=== PATIENT | female | born 1950 | race Caucasian/White ===

== ENCOUNTER → 2022-08-17 | Outpatient (OUT) | payer MEDICARE, SELFPAY ==
[2022-08-17 10:59] LABS: Basophils Absolute Auto 0.1 10^3/uL (0.0-0.1); Eosinophils Absolute Auto 0.2 10^3/uL (0.0-0.7); Eosinophils Percent Auto 2.3 % (0.9-7.0); Hematocrit 37.7 % (36.0-48.0); Hemoglobin 12.4 g/dL (12.0-16.0); Immature Granulocytes Abs Auto 0.02 10^3/uL (0.00-0.03); Immature Granulocytes Pct Auto 0.2 % (0.0-0.5); Lymphocytes Absolute Auto 2.2 10^3/uL (1.2-3.8); Lymphocytes Percent Auto 27.1 % (20.5-60.0); Mean Corpuscular HGB Conc 32.9 g/dL (29.9-35.2); Mean Corpuscular Hemoglobin 30.5 pg (26.7-34.0); Mean Corpuscular Volume 92.9 fL (81.0-99.0); Mean Platelet Volume 9.6 fL (9.5-13.5); Monocytes Absolute Auto 0.6 10^3/uL (0.3-0.8); Monocytes Percent Auto 6.8 % (1.7-12.0); Neutrophils Absolute Auto 5.1 10^3/uL (1.4-6.5); Neutrophils Percent Auto 62.6 % (43.0-75.0); Platelet Count 359 10^3/uL (150-450); Red Blood Count 4.06 10^6/uL (4.20-5.40); Red Cell Distribution Width 12.9 % (11.0-15.0); White Blood Count 8.1 10^3/uL (4.0-11.0)
== END ==
LOC: LAB 10:09
PROVIDERS: PCP Family Medicine
DX: Q10.5 Congenital stenosis and stricture of lacrimal duct (principal)
CPT/HCPCS: 36415; 85025

== ENCOUNTER 2023-02-28 12:59 | Outpatient (OUT) | payer MEDICARE, SELFPAY ==
--- NOTE | 2023-02-28 | MM_ITS ---
Patient Name: ANA MATT MR#: [id number] : 1950 Exam Date: 02/28/2023 Ordering Doctor: MRS. MARY BORDEN . RADIOLOGY REPORT PROCEDURE: MM TOMOSYNTHESIS DIAGNOSTIC BI, 02/28/2023, 13:05 US BREAST LT LIMITED, 02/28/2023, 14:58 COMPARISON: MG MAMM SCREEN 3D JACEK CAD, 02/09/2022. INDICATIONS: PAIN LEFT BREAST Calculator Name NCI Breast Cancer Risk Assessment Tool 5 Year Breast Cancer Risk 1.60% Lifetime Breast Cancer Risk 3.90% Personal Breast Cancer No Personal Ovarian Cancer No Treatments None Family Cancers None LOCATION: [facility] BREAST COMPOSITION: Scattered areas fibroglandular density. FINDINGS: DIAGNOSTIC CATEGORY 2--BENIGN FINDING. NO CHANGE FROM COMPARISON. Scattered benign-appearing nodules are present. Scattered benign-appearing calcifications are present. Scattered benign-appearing lymph nodes are present. RIGHT BREAST: No significant suspicious finding. LEFT BREAST: No mammographic abnormality in the 3 o'clock position to correspond to the patient's pain. A round partially circumscribed density is noted in the anterior left breast measuring 1.7 x 1.5 cm. This area is not seen on the spot compression views and likely represents overlap of fibroglandular tissue. ultrasound of this region demonstrates an area of anechoic echogenicity in the retroareolar location measuring 6.8 x 8.9 x 5.3 mm. RECOMMENDATIONS: ROUTINE MAMMOGRAM AND CLINICAL EVALUATION IN 12 MONTHS. PLEASE NOTE: A NORMAL MAMMOGRAM DOES NOT EXCLUDE THE POSSIBILITY OF BREAST CANCER. A CLINICALLY SUSPICIOUS PALPABLE LUMP SHOULD BE BIOPSIED. Dictated by: Clem Gamboa MD on 02/28/2023 at 15:27 Approved by: Clem Gamboa MD on 02/28/2023 at 15:30
== END 2023-02-28 13:00 | disposition home or self-care (01) ==
LOC: MAMMO 12:59
PROVIDERS: PCP Family Medicine; Visit Provider Nurse Practitioner
DX: N64.4 Mastodynia (principal)
CPT/HCPCS: 76642; 77066; G0279

== ENCOUNTER 2023-03-04 08:23 | Outpatient (OUT) | payer MEDICARE, SELFPAY ==
--- NOTE | 2023-03-04 08:27 | XR_ITS ---
[place] [id number] Patient Name: ANA MATT MRN: [id number] date: 1950 Sex: F Assigned Patient Location: RAD Current Patient Location: RAD Accession/Order Number: [id number] Exam Date: 03/04/2023 08:55 Report Date: 03/04/2023 09:50 At the request of: MARY BORDEN Procedure: XR DEXA axial skeleton EXAMINATION: XR DEXA axial skeleton HISTORY: osteoporosis COMPARISON: DEXA bone densitometry 05/29/2014 TECHNIQUE: Dual-energy X-ray absorptiometry (DXA) was performed. FINDINGS: FOREARM ANALYSIS: Average bone mineral density is 0.574 g/cm2. T-score (standard deviation relative to young adult mean): -2.0 . -12.0% change since prior study. HIP ANALYSIS: Lowest bone mineral density is within the right femoral trochanter, 0.504 g/cm2. T-score (standard deviation relative to young adult mean): -3.0 . -10.0% change since prior study. XR/XR DEXA axial skeleton IMPRESSION: [employer] Classification: Osteoporosis - High Fracture Risk Electronically authenticated by: DANIELLA PLEITEZ Date: 03/04/2023 09:50
--- OUTSIDE RECORDS SUMMARY | 2023-03-04 08:27 | XMS_ITS | CCD ---
Author Name Unknown Address [address] [place] [id number] Organization [facility] Care Team Providers Care Control Cabinet Assembler Name Role Phone Byron Meneses Unavailable Unavailable Vazquez, Daria Warren Unavailable Unavailable Gideon, Byron Miranda Unavailable Unavailable VAZQUEZ, DR DARIA Warren Consulting Unavailable VAZQUEZ, DR DARIA Warren Primary Care Unavailable VAZQUEZ, DR DARIA Warren Admitting Unavailable VAZQUEZ, DR DARIA Warren Attending Unavailable VAZQUEZ, DR DARIA Warren Attending Unavailable VAZQUEZ, DR DARIA Warren Consulting Unavailable VAZQUEZ, DR DARIA Warren Primary Care Unavailable VAZQUEZ, DR DARIA Warren Admitting Unavailable ZIEBER, DR REINIER Calderon Consulting Unavailable VAZQUEZ, DR DARIA Warren Attending Unavailable VAZQUEZ, DR DARIA Warren Consulting Unavailable VAZQUEZ, DR DARIA Warren Primary Care Unavailable VAZQUEZ, DR DARIA Warren Admitting Unavailable ZIEBER, DR REINIER Calderon Consulting Unavailable VAZQUEZ, DR DARIA Warren Attending Unavailable VAZQUEZ, DR DARIA Warren Consulting Unavailable VAZQUEZ, DR DARIA Warren Primary Care Unavailable VAZQUEZ, DR DARIA Warren Admitting Unavailable ZIEBER, DR REINIER Calderon Consulting Unavailable MILEY ANGEL Consulting Unavailable Mario Gene Suraj Attending Unavailable Mario Gene Suraj Admitting Unavailable NO FAMILY, PHYSICIAN Primary Care Unavailable Chiara Box Primary Care Physician Chiara Box Attending Unavailable VAZQUEZDARIA CAT Attending Unavailable CharuChiara bean Attending Unavailable CharuChiara bean Attending Unavailable CharuChiara bean Attending Unavailable Chiara Box Admitting Unavailable Chiara Box Attending Unavailable Allergies Allergy Classification Reported Allergen(s) Allergy Type Date of Onset Reaction(s) Facility (2 sources) Poison Kaycee; Translations: [Poison Kaycee] Propensity to adverse reactions to substance [facility] (1 source) No Known Medication Allergies; Translations: [No Known Medication Allergies] Propensity to adverse reactions (disorder) [facility] Repository NEGATED: Highlighted row has been ruled out! (1 source) Drug allergy [facility] Medications Current Medications Medication Drug Class(es) Dates Sig (Normalized) Sig (Original) ibuprofen 600 mg oral tablet (1 source) Nonsteroidal Anti-inflammatory Drug Start: 07-28-2022 take 1 tablet by mouth every six hours as needed ibuprofen 600 mg Tab 600 mg = 1 tab(s), Oral, q6hr, as needed, take with food, Refills(s) 0 Start Date: 07/28/22 Status: Ordered Omeprazole (1 source) Proton Pump Inhibitor Start: 01-27-2023 Prilosec OTC 20 mg, Refills(s) 0 Start Date: 01/27/23 Status: Ordered Problems Active Problems Problem Classification Problem Date Documented Date Episodic/Chronic Conditions associated with dizziness or vertigo (1 source) Labyrinthitis 07-28-2022 Episodic Conduction disorders (1 source) Left bundle branch block 07-28-2022 Chronic Disorders of lipid metabolism (3 sources) Pure hypercholesterolemia, unspecified; Translations: [Hypercholesterolemia] Onset: 03-03-2021 07-28-2022 Chronic Esophageal disorders (1 source) Gastroesophageal reflux disease 07-28-2022 Chronic Headache; including migraine (1 source) Migraine 07-28-2022 Chronic Malaise and fatigue (2 sources) Other fatigue; Translations: [Fatigue] Onset: 03-03-2021 01-27-2023 Episodic Mood disorders (2 sources) Depressive disorder; Translations: [Recurrent major depressive episodes, mild ] 01-26-2023 Chronic Comment on above: added per 01/25/2023 query response. Osteoarthritis (2 sources) Arthritis; Translations: [Osteoarthritis] 07-28-2022 Chronic Osteoporosis (1 source) Osteoporosis 07-28-2022 Chronic Other circulatory disease (1 source) Congestion of throat; Translations: [Phlegm in throat] Episodic Other circulatory disease (1 source) Elevated blood pressure 01-27-2023 Episodic Other connective tissue disease (1 source) Muscle pain 07-28-2022 Episodic Other ear and sense organ disorders (1 source) Sensorineural hearing loss, bilateral; Translations: [Bilateral sensorineural hearing loss] Chronic Other ear and sense organ disorders (1 source) Tinnitus; Translations: [Tinnitus] Episodic Other eye disorders (1 source) Unspecified disorder of eye and adnexa; Translations: [Unspecified disorder of eye and adnexa] Onset: 08-19-2022 Episodic Other nervous system disorders (1 source) 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 Comment on above: cervical bone spur Other non-traumatic joint disorders (1 source) Polyarthritis, unspecified; Translations: [POLYARTHRITIS UNSPECIFIED] Onset: 03-03-2021 Chronic Other non-traumatic joint disorders (1 source) Disorder of shoulder 07-28-2022 Episodic Other screening for suspected conditions (not mental disorders or infectious disease) (4 sources) Encounter for screening mammogram for malignant neoplasm of breast; Translations: [ENC SCR MAMMO MALIG NEOPLASM BREAST] Onset: 02-09-2022 Episodic Other upper respiratory disease (1 source) Dysphonia; Translations: [Dysphonia] Episodic Spondylosis; intervertebral disc disorders; other back problems (4 sources) Spondylosis without myelopathy or radiculopathy, lumbar region; Translations: [Intervertebral disc disorders with myelopathy, lumbar region] Onset: 11-05-2021 Chronic Spondylosis; intervertebral disc disorders; other back problems (5 sources) Intervertebral disc disorders with radiculopathy, lumbar region; Translations: [Dorsalgia, unspecified] Onset: 11-04-2021 Episodic Unclassified (3 sources) LOW BACK PAIN, UNSPECIFIED; Translations: [LOW BACK PAIN, UNSPECIFIED] Onset: 11-28-2021 Unclassified (1 source) PERSONAL HISTORY OF COVID-19; Translations: [PERSONAL HISTORY OF COVID-19] Onset: 03-03-2021 Viral infection (1 source) Disease caused by 2019-nCoV 07-28-2022 Comment on above: 10/2020 Past or Other Problems Problem Classification Problem Date Documented Da te Episodic/Chronic Other connective tissue disease (4 sources) Myalgia, unspecified site; Translations: [MYALGIA UNSPECIFIED SITE] Onset: 02-25-2021 Episodic Other non-traumatic joint disorders (1 source) Joint disorder, unspecified; Translations: [JOINT DISORDER UNSPECIFIED] Onset: 11-05-2021 Episodic Other non-traumatic joint disorders (1 source) Pain in right hip; Translations: [PAIN IN RIGHT HIP] Onset: 11-05-2021 Episodic Unclassified (1 source) LOW BACK PAIN, UNSPECIFIED; Translations: [LOW BACK PAIN, UNSPECIFIED] Onset: 11-23-2021 Results Test Name Value Interpretation Reference Range Facility RAD - Ultrasound Reporton RAD - Ultrasound Report [id number]#1.00T IFF Normal [facility] Physician Orderon 02-18-2023 Physician Order [id number]#1.00T IFF Normal [facility] .Interpretation:on HCV Ab IA Ql Comment Invalid Interpretation Code [facility] Comment on above: Result Comment: Not infected with HCV unless early or acute infection is suspected (which may be delayed in an immunocompromised individual), or other evidence exists to indicate HCV infection. Performed at: [facility] [id number] PhD No Ornelas Performed By: #### 2 405913, [id number], 7222144, 2313700, 3742654, 9800314, 21652545, [id number] ####[facility] [address] [place] [address] HCV Antibody RFX to Quant PC Rodolfo 02-02-2023 HCV IgG IA Ql Non-Reactive Invalid Interpretation Code Non Reactive [facility] Comment on above: Result Comment: Perf ormed at: [address] [id number] PhD No Ornelas Performed By: #### 2 950102, [id number], 1649989, 6996422, 2609558, 1050723, 42730002, [id number] ####[facility] [address] [place] [address] Patient Logson 02-01-2023 Patient Logs [id number]#1.00T IFF Normal [facility] Auto Diffon 01-31-2023 Basophils/100 WBC (Bld) 1.1 % Normal 0.0-2.0 [facility] Comment on above: Order Comment: Order Added by Discern Expert. Performed By: #### 2 595292, [id number], 8408521, 0147790, 5479502, 1358887, 38943612, [id number] ####[facility] [address] [place] [address] Basophils/Leukocytes Auto (Bld) [Pure # fraction] 0.1 E9/L Normal 0.0-0.2 [facility] Comment on above: Order Comment: Order Added by Discern Expert. Performed By: #### 2 736840, [id number], 8766837, 4694775, 3487507, 5452066, 89087355, [id number] ####[address] [address] Eosinophils/100 WBC (Bld) 3.3 % Normal 0.0-8.0 [facility] Comment on above: Order Comment: Order Added by Helen Expert. Performed By: #### 2 512236, 4302267211, 2362944, 7745536, 9411911, 4395108, 76277555, [id number] ####[address] [address] Eosinophils/Leukocyt es Auto (Bld) [Pure # fraction] 0.2 E9/L Normal 0.0-0.5 [facility] Comment on above: Order Comment: Order Added by Helen Expert. Performed By: #### 2 913773, [id number], 4301087, 6709690, 1178346, 9803105, 52089872, 5060676674 ####[address] [place] [address] Lymphocytes/100 WBC (Bld) 33.7 % Normal 14.0-50.0 [facility] Comment on above: Order Comment: Order Added by Helen Expert. Performed By: #### 2 847038, 1004090760, 7731183, 8873003, 4992680, 8429064, 56724919, 3902369175 ####[address] [place] [address] Lymphocytes/Leukocyt es Auto (Bld) [Pure # fraction] 2.2 E9/L Normal 1.0-4.0 [facility] Comment on above: Order Comment: Order Added by Discern Expert. Performed By: #### 2 748892, 9045854732, 0687200, 2623409, 9305546, 5705671, 93723616, 7319788581 ####[address] [address] Monocytes/100 WBC (Bld) 6.5 % Normal 4.0-14.0 [facility] Comment on above: Order Comment: Order Added by Discern Expert. Performed By: #### 2 020637, 1002996329, 1989909, 8911089, 7448367, 9458361, 01398635, 1257161939 ####[address] [address] Monocytes/Leukocytes Auto (Bld) [Pure # fraction] 0.4 E9/L Normal 0.2-1.0 [facility] Comment on above: Order Comment: Order Added by Discern Expert. Performed By: #### 2 667665, 7251163955, 6075276, 7610152, 1782027, 1848558, 03998619, [id number] ####[address] [address] Neutrophils/100 WBC (Bld) 55.4 % Normal 36.0-75.0 [facility] Comment on above: Order Comment: Order Added by Discern Expert. Performed By: #### 2 911390, 5003536950, 9901347, 2047811, 1380880, 3988090, 77778938, 1728928994 ####[address] [address] Neutrophils/Leukocyt es Auto (Bld) [Pure # fraction] 3.7 E9/L Normal 2.0-7.5 [facility] Comment on above: Order Comment: Order Added by Discern Expert. Performed By: #### 2 761273, 6502342396, 8935256, 4097715, 3736846, 9117618, 63078592, 8616696303 ####[facility] [address] [place] [address] CBC w/ Auto Diffon 3 Erythrocyte distribution width (RBC) [Ratio] 13.1 % Normal 10.9-14.2 [facility] Comment on above: Performed By: #### 2 723931, 3002373477, 0319025, 4157811, 4866568, 1256887, 39271934, 8452223945 ####[address] [place] [address] Hematocrit (Bld) [Volume fraction] 37.5 % Normal 34.0-46.0 [facility] Comment on above: Performed By: #### 2 031961, 2805374102, 0857771, 7388103, 4108335, 3331509, 14816631, 1485644268 ####[address] [address] Hemoglobin (Bld) [Mass/Vol] 12.3 g/dL Normal 12.0-16.0 [facility] Comment on above: Performed By: #### 2 270539, 1284540314, 5899433, 2748433, 7422875, 9907508, 39020899, 1925125781 ####[address] [place] [address] MCH (RBC) [Entitic mass] 29.4 pg Normal 27.0-34.0 [facility] Comment on above: Performed By: #### 2 560618, 3933669316, 1587996, 6318032, 6799294, 2172495, 90280337, 5476366286 ####[address] [place] [address] MCHC (RBC) [Mass/Vol] 32.9 g/dL Normal 31.4-36.0 [facility] Comment on above: Performed By: #### 2 162008, 5031626577, 0064774, 6572500, 5316435, 6703781, 72942861, 9904387297 ####[address] [address] MCV (RBC) [Entitic vol] 89.5 fL Normal 80.0-100.0 [facility] Comment on above: Performed By: #### 2 826973, 9921877241, 8895458, 6932670, 3440271, 7050023, 46982570, 6258279419 ####[address] [address] Platelet mean volume (Bld) [Entitic vol] 8.6 fL Normal 6.4-10.8 [facility] Comment on above: Performed By: #### 2 791268, 0116851426, 7932136, 1964745, 8498545, 7745903, 46263596, 1885918635 ####[address] [address] Platelets (Bld) [#/Vol] 333.0 E9/L Normal 150.0-500.0 [facility] Comment on above: Performed By: #### 2 785305, 8706239888, 5259165, 9228006, 6288118, 7398759, 48064595, 4216419183 ####[address] [address] RBC (Bld) [#/Vol] 4.2 E12/L Low 4.3-5.9 [facility] Comment on above: Performed By: #### 2 710039, 5168594441, 2512822, 2525746, 3025374, 8472266, 64162952, 0779384945 ####[address] [address] WBC corrected for nucl RBC Auto (Bld) [#/Vol] 6.6 E9/L Normal 4.0-11.0 [facility] Comment on above: Performed By: #### 2 207885, 2936887383, 5162828, 3191379, 6187459, 6567321, 14084034, 7980105765 ####[facility] [address] [place] [id number] CHEMISTRYOrdered By: SYSTEM SYSTEM on 01-31-2023 Albumin [Mass/Vol] 4.0 g/dL Normal 3.3 - 5.0 gm/dL [facility] Albumin/Globulin [Mass ratio] 1.0 {ratio} Low 1.1 - 2.2 [facility] ALP [Catalytic activity/Vol] 78 [iU]/d Normal 21 - 98 Int._Unit/L [facility] ALT No additional P-5'-P [Catalytic activity/Vol] 14 [iU]/d Normal 6 - 46 Int._Unit/L [facility] Anion gap [Moles/Vol] 11 mmol/L Normal 6 - 16 mEq/L [facility] AST [Catalytic activity/Vol] 21 [iU]/d Normal 5 - 43 Int._Unit/L [facility] Bilirubin [Mass/Vol] 0.8 mg/dL Normal 0.0 - 1 .1 mg/dL [facility] Calcium [Mass/Vol] 9.6 mg/dL Normal 8.9 - 11. 1 mg/dL [facility] Chloride [Moles/Vol] 107 mmol/L Normal 101 - 1 11 mmol/L [facility] Cholesterol [Mass/Vol] 268 mg/dL High 120 - 200 mg/dL [facility] Cholesterol in HDL [Mass/Vol] 69 mg/dL Invalid Interpretation Code [facility] Comment on above: Interpretive Data: H DL > or equal to 60 mg/dL: Low cardiovascular risk HDL < 40 mg/dL : High cardiovascular risk Cholesterol in LDL [Mass/Vol] 162 mg/dL High <=129mg/dL [facility] Cholesterol in VLDL [Mass/Vol] 26 mg/dL Normal 7 - 40 mg/dL [facility] CO2 [Moles/Vol] 26 mmol/L Normal 21 - 31 mmol/L [facility] Creatinine [Mass/Vol] 0.8 mg/dL Normal 0.5 - 1.3 mg/dL [facility] GFR/1.73 sq M.predicted among non-blacks MDRD (S/P/Bld) [Vol rate/Area] 78 mL/min/1.73 m2 Normal >=59mL/min/1 .73 m2 [facility] Comment on above: Interpretive Data: C hronic kidney disease could be indicated at eGFR's of less than 60 mL/min/1.73m2. Kidney failure is indicated at less than 15 mL/min/1.73m2. Globulin (S) [Mass/Vol] 3.8 g/dL Normal 1.4 - 4.0 gm/dL [facility] Glucose [Mass/Vol] 88 mg/dL Normal 55 - 199 mg/dL [facility] Comment on above: Interpretive Data: I f this glucose result represents a fasting glucose, interpretation should refer to the following reference range: 55-99 mg/dL Potassium [Moles/Vol] 4.2 mmol/L Normal 3.5 - 5.3 mmol/L [facility] Protein [Mass/Vol] 7.8 g/dL Normal 6.0 - 7.8 gm/dL [facility] Sodium [Moles/Vol] 140 mmol/L Normal 135 - 145 mmol/L [facility] Triglyceride [Mass/Vol] 132 mg/dL Normal <=149mg/dL [facility] TSH Qn 2.33 m[IU]/L Normal 0.34 - 5.60 mcIU/mL [facility] Urea nitrogen [Mass/Vol] 15 mg/dL Normal 5 - 21 mg/dL [facility] Urea nitrogen/Creatinine [Mass ratio] 19 mg/mg Normal 10 - 20 [facility] CMPon 01-31-2023 Albumin [Mass/Vol] 4.0 g/dL Normal 3.3-5.0 [facility] Comment on above: Performed By: #### 2 477660, 5131651164, 6551690, 7853017, 1591590, 3154224, 71627146, 4344317617 ####[facility] [address] [place] [address] Albumin/Globulin (S) [Mass conc ratio] 1.0 Low 1.1-2.2 [facility] Comment on above: Performed By: #### 2 375940, 9382440619, 5572993, 3870907, 3625542, 3395124, 76861100, 1128638656 ####[address] [place] [address] ALP [Catalytic activity/Vol] 78 Int._Unit/L Normal 21-98 [facility] Comment on above: Performed By: #### 2 918980, 3795310389, 3116289, 8786298, 3117709, 2405695, 80830765, 0399260097 ####[address] [address] ALT No additional P-5'-P [Catalytic activity/Vol] 14 Int._Unit/L Normal 6-46 [facility] Comment on above: Performed By: #### 2 597809, 7261860372, 0490987, 8398025, 5263477, 6374140, 29669871, 9021002312 ####[address] [address] Anion gap [Moles/Vol] 11 mmol/L Normal 6-16 [facility] Comment on above: Performed By: #### 2 835227, 5358914534, 0794922, 7356739, 4527338, 0045090, 57159335, 9448378864 ####[address] [address] AST [Catalytic activity/Vol] 21 Int._Unit/L Normal 5-43 [facility] Comment on above: Performed By: #### 2 765868, 1360524027, 2522987, 5144520, 2605883, 4124355, 30281135, 3961950128 ####[address] [place] [address] Bilirubin [Mass/Vol] 0.8 mg/dL Normal 0.0-1.1 [facility] Comment on above: Performed By: #### 2 771699, 6351772058, 1068723, 1860508, 6596080, 7876600, 24704604, 6896970416 ####[facility] [address] [place] [address] Calcium [Mass/Vol] 9.6 mg/dL Normal 8.9-11.1 [facility] Comment on above: Performed By: #### 2 454158, 4507098120, 6190378, 0066539, 6976815, 2397722, 97335658, 6649596974 ####[facility] [address] [place] [address] Chloride [Moles/Vol] 107 mmol/L Normal 101-111 [facility] Comment on above: Performed By: #### 2 658837, 1081362288, 5852702, 4969640, 7498244, 3529729, 59439083, 5084832465 ####[facility] [address] [place] [address] CO2 [Moles/Vol] 26 mmol/L Normal 21-31 [facility] Comment on above: Performed By: #### 2 399129, 5945070473, 0507022, 8820995, 1098659, 2906988, 55369805, 8800071768 ####[facility] [address] [place] [address] Creatinine [Mass/Vol] 0.8 mg/dL Normal 0.5-1.3 [facility] Comment on above: Performed By: #### 2 392066, 3440741559, 7569994, 0391200, 3828338, 4262228, 93786170, 5262834861 ####[facility] [address] [place] [address] Globulin (S) [Mass/Vol] 3.8 g/dL Normal 1.4-4.0 [facility] Comment on above: Performed By: #### 2 592578, 3862618983, 5562672, 8890416, 3944692, 7136466, 78969348, 5708253542 ####[facility] [address] [place] [address] Glucose [Mass/Vol] 88 mg/dL Normal 55-199 [facility] Comment on above: Result Comment: If t his glucose result represents a fasting glucose, interpretation should refer to the following reference range: 55-99 mg/dL Performed By: #### 2 639909, 1815655358, 4482922, 9695925, 5662535, 5688783, 88923760, 4566342052 ####[facility] [address] [place] [address] Potassium [Moles/Vol] 4.2 mmol/L Normal 3.5-5.3 [facility] Comment on above: Performed By: #### 2 496151, 8520315066, 8291603, 6307018, 1703231, 3521149, 78702546, 0198224154 ####[facility] [address] [place] [address] Protein [Mass/Vol] 7.8 g/dL Normal 6.0-7.8 [facility] Comment on above: Performed By: #### 2 683358, 3157735330, 7021395, 5400828, 3258178, 4938875, 93208448, 8759409447 ####[facility] [address] [place] [address] Sodium [Moles/Vol] 140 mmol/L Normal 135-145 [facility] Comment on above: Performed By: #### 2 707876, 3987642598, 3649360, 3344669, 6221519, 8994484, 14456353, 4778362703 ####[facility] [address] [place] [address] Urea nitrogen [Mass/Vol] 15 mg/dL Normal 5-21 [facility] Comment on above: Performed By: #### 2 145902, 2812207244, 9789023, 8041244, 7093370, 0440338, 28853356, 4662936550 ####[facility] [address] [place] [address] Urea nitrogen/Creatinine [Mass ratio] 19 No Units Normal 10-20 [facility] Comment on above: Performed By: #### 2 852522, 2651380285, 7903738, 7223837, 1556638, 9602612, 23424824, 3246034629 ####[facility] [address] [place] [address] HEMATOLOGYOrdered By: SYSTEM SYSTEM on 01-31-2023 Basophils/100 WBC (Bld) 1.1 % Normal 0.0 - 2.0 % [facility] Basophils/Leukocytes Auto (Bld) [Pure # fraction] 0.1 E9/L Normal 0.0 - 0.2 E9/L [facility] Eosinophils/100 WBC (Bld) 3.3 % Normal 0.0 - 8.0 % [facility] Eosinophils/Leukocyt es Auto (Bld) [Pure # fraction] 0.2 E9/L Normal 0.0 - 0.5 E9/L [facility] Lymphocytes/100 WBC (Bld) 33.7 % Normal 14.0 - 50.0 % [facility] Lymphocytes/Leukocyt es Auto (Bld) [Pure # fraction] 2.2 E9/L Normal 1.0 - 4.0 E9/L [facility]eAuto[facility] Monocytes/100 WBC (Bld) 6.5 % Normal 4.0 - 14.0 % [facility] Monocytes/Leukocytes Auto (Bld) [Pure # fraction] 0.4 E9/L Normal 0.2 - 1.0 E9/L [facility] Neutrophils/100 WBC (Bld) 55.4 % Normal 36.0 - 75.0 % [facility] Neutrophils/Leukocyt es Auto (Bld) [Pure # fraction] 3.7 E9/L Normal 2.0 - 7.5 E9/L [facility] HEMATOLOGYOrdered By: Edie Holder on 01-31-2023 Erythrocyte distribution width (RBC) [Ratio] 13.1 % Normal 10.9 - 14.2 % [facility] Hematocrit (Bld) [Volume fraction] 37.5 % Normal 34.0 - 46.0 % [facility] Hemoglobin (Bld) [Mass/Vol] 12.3 g/dL Normal 12.0 - 16.0 gm/dL [facility] MCH (RBC) [Entitic mass] 29.4 pg Normal 27.0 - 34.0 pg [facility] MCHC (RBC) [Mass/Vol] 32.9 g/dL Normal 31.4 - 36.0 gm/dL [facility] MCV (RBC) [Entitic vol] 89.5 fL Normal 80.0 - 100.0 fL [facility] Platelet mean volume (Bld) [Entitic vol] 8.6 fL Normal 6.4 - 10.8 fL [facility] Platelets (Bld) [#/Vol] 333.0 E9/L Normal 150.0 - 500.0 E9/L [facility] RBC (Bld) [#/Vol] 4.2 E12/L Low 4.3 - 5.9 E12/L [facility] WBC corrected for nucl RBC Auto (Bld) [#/Vol] 6.6 E9/L Normal 4.0 - 11.0 E9/L [facility] Lipid Panelon 01-31-2023 Cholesterol [Mass/Vol] 268 mg/dL High 120-200 [facility] Comment on above: Performed By: #### 2 889320, 9430404188, 8273832, 0173080, 0693916, 2971639, 02210161, 0132019692 ####[facility] [address] [place] [address] Cholesterol in HDL [Mass/Vol] 69 mg/dL Invalid Interpretation Code [facility] Comment on above: Result Comment: HDL > or equal to 60 mg/dL: Low cardiovascular risk HDL < 40 mg/dL : High cardiovascular risk Performed By: #### 2 917382, 9802909163, 8524423, 0913351, 8163093, 3025357, 80813292, 0408837144 ####[facility] [address] [place] [address] Cholesterol in LDL [Mass/Vol] 162 mg/dL High <=129 [facility] Comment on above: Performed By: #### 2 035897, 6693756096, 8252701, 1000678, 4808780, 9759120, 71819367, 1133438507 ####[facility] [address] [place] [address] Cholesterol in VLDL [Mass/Vol] 26 mg/dL Normal 7-40 [facility] Comment on above: Performed By: #### 2 737509, 4801170524, 5846306, 9726140, 7283835, 9311797, 06491070, 7419686130 ####[facility] [address] [place] [address] Triglyceride [Mass/Vol] 132 mg/dL Normal <=149 [facility] Comment on above: Performed By: #### 2 472178, 7008195269, 8280610, 8800086, 7071809, 5374490, 56471981, 7573622286 ####[facility] [address] [place] [address] Nurse Consultation Noteon Nurse Consultation Note Reason for Visit Pt presented for a BP check and a blood draw today. Pt advised - when checking BP at home, to sit and rest in a chair for 5 minutes, ensure her arm is lifted to heart level, feet flat on the floor. Pt brought home list of BPs for Chiara's review. Physical Exam Vitals & Measurements BP - 146/90 upon 1st check. Allowed additional 5 minutes - 2nd check was 138/88 Medications ibuprofen 600 mg Tab, 600 mg= 1 tab(s), Oral, q6hr, Self Directed Prilosec OTC, 20 mg, Self Directed Allergies Poison Kaycee No Known Medication Allergies Normal [facility] TSHon 01-31-2023 TSH Qn 2.33 m[IU]/L Normal 0.34-5.60 [facility] Comment on above: Performed By: #### 2 521566, 0130073837, 4261241, 0515434, 1231406, 6747605, 26927731, 1755411208 ####[facility] [address] [place] [address] eGFRon 01-31-2023 GFR/1.73 sq M.predicted among non-blacks MDRD (S/P/Bld) [Vol rate/Area] 78 mL/min/1.73 m2 Normal >=59 [facility] Comment on above: Order Comment: Order added by Discern Expert. Result Comment: Brands Editor giselle kidney disease could be indicated at eGFR's of less than 60 mL/min/1.73m2. Kidney failure is indicated at less than 15 mL/min/1.73m2. Performed By: #### 2 [id number], [id number], [id number] ####[facility] [address] [place] [address] Formson 01-28-2023 Forms [id number] IFF Normal [facility] Ambulatory Visit Summaryon 1 03-29-2022 Ambulatory Visit Summary HALIE MARTIN :1950 Visit Date:01/27/2023 Ambulatory Visit Instructions Your Diagnosis Annual visit for general adult medical examination with abnormal findings Major depressive disorder, recurrent episode, mild Screening for colon cancer Screening mammogram for breast cancer Other problems related to lifestyle Osteoporosis Arthritis Hyperlipidemia Tests Performed BD Bone Density DEXA -- Results Pending -- MA Mamm Screen w/CAD if perf and 3D Pedro -- Results Pending -- Please visit your patient portal for your results or contact your primary care physician. Your Care Team Attending Physician - Chiara Rainey Primary Care Physician - Chiara Rainey This Is Your Medications List ibuprofen (ibuprofen 600 mg Tab) omeprazole (Prilosec OTC) Procedures Performed Arthroscopy of knee, Cataract, Shoulder repair, Surgery. Discharge Vitals Heart Rate (Peripheral) 62 Blood Pressure 144/78 Height 63 in Height 160 cm Weight 152.02 lb Weight 69.1 kg BMI 26.99 What to do next Scheduled Follow-Up Appointments Tuesday 9:40 AM EST Where: [facility] Invalid Interpretation Code [address] [place] [address]- \.br \ You Need to Complete the Following\.b r\ CBC w/ Auto Diff, Blood, Routine collect, 01/27/23, Order for future visit, Lab Collect, Elevated blood pressure reading [facility] Ambulatory Visit Summary HALIE MARTIN :1950 Visit Date:01/27/2023 Ambulatory Visit Instructions Your Diagnosis Major depressive disorder, recurrent episode, mild Your Care Team Attending Physician - Chiara Rainey Primary Care Physician - Chiara Rainey This Is Your Medications List Contact prescribing physician if questions or concerns ibuprofen (ibuprofen 600 mg Tab) omeprazole (Prilosec OTC) Procedures Performed Arthroscopy of knee, Cataract, Shoulder repair, Surgery. Discharge Vitals Heart Rate (Peripheral) 62 Respiratory Rate 16 Blood Pressure 158/78 Height 160 cm Height 63 in Weight 69.1 kg Weight 152.02 lb BMI 26.99 Medications What How Much When Instructions Unchanged ibuprofen (ibuprofen 600 mg Tab) 1 Tablets By Mouth Every 6 hours as needed, take with food Contact prescribing physician if questions or concerns Unchanged omeprazole (Prilosec OTC) 20 Milligram Contact prescribing physician if questions or concerns Allergies Poison Kaycee No Known Medication Allergies Problems Ongoing - Any problem that you are currently receiving treatment for. Arthritis COVID-19 GERD (gastroesophageal reflux disease) Hypercholesterolemia Hyperlipidemia Impingement of shoulder Labyrinthitis Left bundle branch block (LBBB) Low back pain Major depressive disorder, recurrent episode, mild Migraines Muscle pain Osteoarthritis Osteoporosis Radiculopathy Historical - Any problem that you are no longer receiving treatment for. Depression Patient Survey You may receive a survey via text or e-mail asking about your office visit. Please share your experience with us by completing your survey. We appreciate your feedback and thank you for choosing us for your care. [facility] Family Medicine Office/Clini c Noteon 01-27-2023 Family Medicine Office/Clinic Note Chief Complaint Subsequent Medicare Visit Review of Systems PHQ Score Initial Depression Screen Score: 0 SCORE Physical Exam Vitals & Measurements HR: 62(Peripheral) BP: 144/78 SpO2: 96% HT: 160 cm HT: 63 in WT: 69.1 kg WT: 152.02 lb BMI: 26.99 Assessment/Plan 1. Annual visit for general adult medical examination with abnormal findings (Z00.01: Encounter for general adult medical examination with abnormal findings) The patient was given a customized and personalized print out of all the current AHRQ USPSTF?s recommendations for preventative services and all current CDC recommended immunizations, relevant risk recommendations and the following patient brochures were given. Reviewed Medicare preventative services checklist. CDC-Falls Prevention and home safety screening reviewed. Patient denies any falls in last 12 months, voices no worry about falling, exhibits no problems with sitting, standing, or ambulation. Pt voices understanding with keeping walk way area free of clutter to prevent tripping and/or falling. [place] Advance Directives reviewed, patient has copy at home, encouraged to bring to office for scanning to chart. Patient denies any problems with ADL?s and Instrumental ADL?s. Cognitive screening completed with memory and clock face drawing, no deficits noted. Immunization Record reviewed with the patient. Discussed Shingrix vaccine with educational handout and availability. Allergies and medications reviewed and up to date. Patient denies concerns with taking medication as prescribed, reviewed OTC medications with patient, medication list up to date. Blood tests were reviewed: Discussed what tests need to be updated. Labs were ordered, will have completed prior to next PCP visit. Nurse visit scheduled: 01/31/23 Will have labs completed with [facility]. Reviewed pain symptoms with patient: denies pain symptoms Reviewed all outside providers that patient follows. Last visit summary notes available in chart and/or have been requested. Follow up scheduled, seen provider same day 01/27/23, nurse f/u 01/31/23 AWV has been scheduled, 01/30/2024 Abnormal findings with elevated BP, serial assessment completed and documented. 15 minutes for completion of Alcohol screening questionnaire, documentation, discussion with patient, provider review. AUDIT score 2. Patient denies alcohol use. No concerns at this time. 2. Major depressive disorder, recurrent episode, mild (F33.0: Major depressive disorder, recurrent, mild) Patient does not have prescribed medication, notes symptoms controlled. Follows up with PCP as needed. PHQ-9 risk assessment completed with negative findings. Total risk score 2. Patient denies any suicidal ideations at this time. Reviewed additional signs/symptoms to monitor for and report to provider. 3. Screening for colon cancer (Z12.11: Encounter for screening for malignant neoplasm of colon) Patient is due for their colonoscopy: Denies concerns with constipation and/or rectal bleeding. No family history concerns voiced. Patient declines interest in scheduling a colonoscopy screening. Reviewed available options with Cologuard Kit, patient voices interest and would like to have this ordered. Reviewed sample box with how to collect the needed sample step by step. Patient voices understanding with process and is aware the kit also includes step by step pictorial booklet. Provided a schedule with the days of the week that the sample was completed and when it needs to be returned back via UPS for testing. Reminded patient this kit will not be mailed out to them until they verify this order and mailing address by a construction sales representative from [employer]. Encouraged patient it would be OK for them to call [employer] if they have not received a call after 1 week of ordering to ensure shipping. Discussed available repeating of the Cologuard test: if results are NORMAL they can repeat every 3 years unless otherwise indicated. If the result is ABNORMAL they would be referred to Gastroenterology for further evaluation and will not be able to have offered again. Form was completed and faxed to [employer] with patient's demographics and insurance information. Patient will be notified by PCP with the results, this can take up to 7-10 days. Cologuard ordered and forms completed and faxed to [employer]. 4. Screening mammogram for breast cancer (Z12.31: Encounter for screening mammogram for malignant neoplasm of breast) Recommended mammogram screening discussed with patient during today's Medicare Wellness visit. Patient reminded with the importance of continued Breast Self-Awareness at home. Easy to read demonstration on how to perform a self breast exam: What to look for and feel for was reviewed and provided to patient. Mammogram ordered and faxed to [facility]. Pt has been advised no deodorant, sprays or lotions. Last completed 02/09/22. 5. Other problems related to lifestyle (Z72.89: Other problems related to lifestyle) Information provided and d (more content not included)... Normal [facility] Comment on above: Result Comment: Elec tronically Signed By: Chiara Rainey\.br\Date and Time Signed: 01/27/23 15:28 EST\.br\Electronically Co-Signed By: Stone Petty\.br\Date and Time Co-Signed: 01/27/23 14:53 EST Family Medicine Office/Clinic Note HPI Staff Halie is a 72 year old female presenting for [facility] care Establish Care: History: Any previous diagnosis: Gerd, Depression, Osteoarthritis, hypercholesterolemia, HLD, Migraines History of seeing any specialist: Podiatry, Dr Hill. Dannie, Opthalm. ENT Dr Meneses. Dr Guerrero, Dermatology When was your last doctors visit: Last provider: avila - 20 years. Any recent labs: last year [facility] Health Maintenance UTD: Colonoscopy: no, refused Mammogram: due Pelvic/Pap: Acute: Current issues/complaints: high htn on home bp monitor. History of Present Illness pt presents today c/o elevated BP at home Review of Systems PHQ Score Initial Depression Screen Score: 0 SCORE ROS - Provider Constitutional: no fever, no chills, no sweats, no fatigue Respiratory: no shortness of breath, no cough, no orthopnea, no wheezing. Cardiovascular: no chest pain, no palpitations, no edema. Neurologic: no headache, no dizziness, no numbness, no weakness. Physical Exam Vitals & Measurements HR: 62(Peripheral) RR: 16 BP: 158/78 SpO2: 98% HT: 63 in HT: 160 cm WT: 69.1 kg WT: 152.02 lb BMI: 26.99 General: alert, no acute distress ENMT: oral mucosa moist, no pharyngeal erythema or exudate Cardiovascular: regular rate and rhythm, normal peripheral perfusion Respiratory: Lungs CTA, respirations non labored Extremities: no deformity, no trauma Neurological: oriented x 4, LOC appropriate for age, CN II-XII intact, motor strength equal & normal bilaterally, speech normal Assessment/Plan 1. Elevated blood pressure reading (R03.0: Elevated blood-pressure reading, without diagnosis of hypertension) pt presents today c/o elevated BP at home 150's/90's. It is 150/78 in office today. pt to keep BP log and bring it in for nurse visit next week. pt will also be fasting when she comes back and will also have lab work. discussed starting norvasc if BP is elevated at nurse visit. all questions answered. Ordered: CBC w/ Auto Diff Comprehensive Metabolic Panel Lipid Panel Thyroid Stimulating Hormone 2. Fatigue (R53.83: Other fatigue) pt c/o fatigue and some chest tightness when she exerts herself doing yard work. will check some labs next week. pt will be having medicare wellness visit today as well. pt is concerned she may be diabetic because she is having some tingling in her feet. will check labs Ordered: CBC w/ Auto Diff Comprehensive Metabolic Panel Lipid Panel Thyroid Stimulating Hormone Follow-up No qualifying data available Problem List/Past Medical History Ongoing Arthritis COVID-19 Elevated blood pressure reading Fatigue GERD (gastroesophageal reflux disease) Hypercholesterolemia Hyperlipidemia Impingement of shoulder Labyrinthitis Left bundle branch block (LBBB) Low back pain Major depressive disorder, recurrent episode, mild Migraines Muscle pain Osteoarthritis Osteoporosis Radiculopathy Historical Depression Procedure/Surgical History Arthroscopy of knee, Cataract, Shoulder repair, Surgery. Medications ibuprofen 600 mg Tab, 600 mg= 1 tab(s), Oral, q6hr, Self Directed Prilosec OTC, 20 mg, Self Directed Allergies Poison Kaycee No Known Medication Allergies Social History Alcohol Wine, Liquor, 1-2 times per week, Household alcohol concerns: No., 01/27/2023 Tobacco Never (less than 100 in lifetime) Tobacco Use:. Never Smokeless Tobacco Use:. Household tobacco concerns: No., 01/27/2023 Never (less than 100 in lifetime) Tobacco Use:. Never Smokeless Tobacco Use:., 01/27/2023 Family History Acute myocardial infarction: Father and Sibling.Negative: Brother. Diabetes mellitus type 2: Sibling.Negative: Brother. Heart murmur: Sibling.Negative: Brother. Hyperlipidemia: Sibling.Negative: Brother. Hypertension: Sibling.Negative: Brother. Renal failure syndrome: Sibling. [facility] Comment on above: Result Comment: Elec tronically Signed By: Chiara Rainey\.rodney\Date and Time Signed: 01/27/23 14:26 EST Formson 01-27-2023 Forms [id number] FF [facility] Patient Educationon 01-28-20 23 Patient Education Caregiving Fall Prevention in the Home, Adult Falls can cause injuries and affect people of all ages. There are many simple things that you can do to make your home safe and to help prevent falls. Ask for help when making these changes, if needed. What actions can I take to prevent falls? General instructions ? Use good lighting in all rooms. Replace any light bulbs that burn out, turn on lights if it is dark, and use night-lights. ? Place frequently used items in [id number]-dv-xqjju places. Lower the shelves around your home if necessary. ? Set up furniture so that there are clear paths around it. Avoid moving your furniture around. ? Remove throw rugs and other tripping hazards from the floor. ? Avoid walking on wet floors. ? Fix any uneven floor surfaces. ? Add color or contrast paint or tape to grab bars and handrails in your home. Place contrasting color strips on the first and last steps of staircases. ? When you use a stepladder, make sure that it is completely opened and that the sides and supports are firmly locked. Have someone hold the ladder while you are using it. Do not climb a closed stepladder. ? Know where your pets are when moving through your home. What can I do in the bathroom? ? Keep the floor dry. Immediately clean up any water that is on the floor. ? Remove soap buildup in the tub or shower regularly. ? Use nonskid mats or decals on the floor of the tub or shower. ? Attach bath mats securely with double-sided, nonslip rug tape. ? If you need to sit down while you are in the shower, use a plastic, nonslip stool. ? Install grab bars by the toilet and in the tub and shower. Do not use towel bars as grab bars. What can I do in the bedroom? ? Make sure that a bedside light is easy to reach. ? Do not use oversized bedding that reaches the floor. ? Have a firm chair that has side arms to use for getting dressed. What can I do in the kitchen? ? Clean up any spills right away. ? If you need to reach for something above you, use a sturdy step stool that has a grab bar. ? Keep electrical cables out of the way. ? Do not use floor paraguayan or wax that makes floors slippery. If you must use wax, make sure that it is non-skid floor wax. What can I do with my stairs? ? Do not leave any items on the stairs. ? Make sure that you have a light switch at the top and the bottom of the stairs. Have them installed if you do not have them. ? Make sure that there are handrails on both sides of the stairs. Fix handrails that are broken or loose. Make sure that handrails are as long as the staircases. ? Install non-slip stair treads on all stairs in your home. ? Avoid having throw rugs at the top or bottom of stairs, or secure the rugs with carpet tape to prevent them from moving. ? Choose a carpet design that does not hide the edge of steps on the stairs. ? Check any carpeting to make sure that it is firmly attached to the stairs. Fix any carpet that is loose or worn. What can I do on the outside of my home? ? Use bright outdoor lighting. ? Regularly repair the edges of walkways and driveways and fix any cracks. ? Remove high doorway thresholds. ? Trim any shrubbery on the main path into your home. ? Regularly check that handrails are securely fastened and in good repair. Both sides of all steps should have handrails. ? Install guardrails along the edges of any raised decks or porches. ? Clear walkways of debris and clutter, including tools and rocks. ? Have leaves, snow, and ice cleared regularly. ? Use sand or salt on walkways during winter months. ? In the garage, clean up any spills right away, including grease or oil spills. What other actions can I take? ? Wear closed-toe shoes that fit well and support your feet. Wear shoes that have rubber soles or low heels. ? Use mobility aids as needed, such as canes, walkers, scooters, and crutches. ? Review your medicines with your health care provider. Some medicines can cause dizziness or changes in blood pressure, which increase your risk of falling. Talk with your health care provider about other ways that you can decrease your risk of falls. This may include working with a physical therapist or physical trainer to improve your strength, balance, and endurance. Where to find more information ? Centers for Disease Control and Prevention, [place]: www.cdc.gov ? National [place] on Aging: www.pratima.nih.gov Contact a health care provider if: ? You are afraid of falling at home. ? You feel weak, drowsy, or dizzy at home. ? You fall at home. Summary ? There are many simple things that you can do to make your home safe and to help prevent falls. ? Ways to make your home safe include removing tripping hazards and installing grab bars in the bathroom. ? Ask for help when making these changes in your home. This information is not intended to replace advice given to you by your health ca (more content not included)... [facility] Screenson 01-27-2023 Screens [id number] FF [facility] Pre-Visit Planningon 023 Pre-Visit Planning - From: Dedra Damon To: Chiara Rainey; Sent: 01/25/2023 14:11:37 EST Subject: Pre-Visit Planning Due Date/Time: 01/25/2023 14:11:00 EST Caller Name: HALIE MARTIN; Caller Number: , Ut Chiara. During a pre-visit planning chart review, I noted the following documentation in the medical record: Current Problem List: Depression (Depressive disorder). PHQ-9 Score: =3 on 07/28/2022. Based on your medical judgment, can you please clarify which, if any, of the following conditions are present? I can update the Chronic Problem List with your response if you would like. Major Depressive Disorder, Single Episode ? Major depressive disorder, single episode, mild ? Major depressive disorder, single episode, moderate ? Major depressive disorder, single episode, severe without mention of psychotic behavior ? Major depressive disorder, single episode, severe specified as with psychotic behavior ? Major depressive disorder, single episode, in partial remission ? Major depressive disorder, single episode in full remission Major Depressive Disorder, Recurrent ? Major depressive disorder, recurrent, mild ? Major depressive disorder, recurrent, moderate ? Major depressive disorder, recurrent, severe without mention of psychotic behavior ? Major depressive disorder, recurrent, severe specified as with psychotic behavior ? Major depressive disorder, recurrent, in partial remission ? Major depressive disorder, recurrent, in full remission -Depressive disorder resolved -Other (Please Specify): In responding to this request, please exercise your independent professional judgement. The fact that a question is asked does not imply that any particular answer is desired or expected. If you have any questions, please feel free to contact me at extension [phone]. Thank you! Dedra Damon LPN From: Chiara Rainey To: Dedra Damon; Sent: 01/26/2023 13:15:12 EST Subject: RE: Pre-Visit Planning Caller Name: HALIE MARTIN; Caller Number: Lizbet , Kaylynn major depressive disorder, mild recurrent Normal [address] [facility] Yobany 08-19-2022 L --- Specimen: [id number] Received: 08/19/22 Status: LUZMA Amy Num: [id number] Spec Type: Surgical Subm Dr: Franky Martin MD Tissues: A Bone Fragments - Other than Path Fracture (LT NASAL BONE FRAGMENTS/LT L) Procedures: JANIE, Gross/Micro L3, Decalcification Age/ Patient Sex Location Account Attending Physician MarioMainorHalie L 72/F [place] [id number] Franky Martin MD SPEC NUM: [id number] RECD: 08/19/22 STATUS: LUZMA REHerminia NUM: [id number] FREDY: 08/19/[address] [facility] [address]: Franky Martin MD ENTERED: 08/19/22 [facility] DR: HILTON TYPE: Surgical DEPT: S ORDERED: HE, Gross/Micro L3, Decalcification ORDERED: HE, Gross/Micro L3, Decalcification Pathological Diagnosis Bone, left eye, dacryocystorhinostomy: - Fragments of benign bone and left lacrimal tissue and sac. - No evidence of malignancy seen. Clinical Information Left eye discharge for 1 to 2 years Gross Description Received in formalin labeled with the patient's name, date of and left eye is a 2.0 x 1.2 x 0.4 cm aggregate of cruz-red bony tissue. Entirely submitted following decalcification in one cassette labeled A1. Microscopic Description One glass slide with H E stained material has been examined. The microscopic findings support the above pathologic diagnosis. CPT Codes 85962, 57648 Specimen: [id number] Received: 08/19/22 Status: LUZMA Nova Num: [id number] Spec Type: Surgical Subm Dr: Franky Martin MD Tissues: A Bone Fragments - Other than Path Fracture (LT NASAL BONE FRAGMENTS/LT L) Procedures: HE, Gross/Micro L3, Decalcification Patient: Halie Martin [id number] (Continued) Signed (signature on file) Desmond Cornelius MD 08/24/22 1516 [facility] Lab Reportson 08-10-2022 Lab Reports [id number] D:[address] [facility] Physician Referralon 023 Physician Referral [id number] CD:[address] [facility] Ambulatory Visit Summaryon 0 07-28-2022 Ambulatory Visit Summary HALIE MARTIN :1950 Visit Date:07/28/2022 Ambulatory Visit Instructions Your Diagnosis Osteoarthritis Fatigue Hypercholesterolemia GERD (gastroesophageal reflux disease) Muscle pain Skin cancer screening Your Care Team Attending Physician - DARIA VAZQUEZ MD Primary Care Physician - DARIA VAZQUEZ MD This Is Your Medications List ibuprofen (ibuprofen 600 mg Tab) Procedures Performed Arthroscopy of knee, Surgery. Discharge Vitals Heart Rate (Peripheral) 78 Respiratory Rate 16 Blood Pressure 126/78 Height 160.3 cm Height 63 in Weight 71.2 kg Weight 156.64 lb BMI 27.71 What to do next Someone Will Contact You Regarding These Appointments [facility] External Ambulatory Referral, Dermatology, DR CROWELL FOR SKIN CANCER SCREEN, 07/28/22 15:17:00 EDT, Skin cancer screening Medications What How Much When Instructions Unchanged ibuprofen (ibuprofen 600 mg Tab) 1 Tablets By Mouth Every 6 hours as needed, take with food Allergies No Known Medication Allergies Problems Ongoing - Any problem that you are currently receiving treatment for. Arthritis COVID-19 Depression GERD (gastroesophageal reflux disease) Hypercholesterolemia Hyperlipidemia Impingement of shoulder Labyrinthitis Left bundle branch block (LBBB) Low back pain Migraines Muscle pain Osteoarthritis Osteoporosis Radiculopathy Normal [facility] Family Medicine Office/Clini c Noteon 07-28-2022 Family Medicine Office/Clinic Note Chief Complaint breast pain off and on and bruise left knee HPI Staff Presents with left breast pain off and on and bruise left knee Health Maintenance: Colonoscopy: never Dexa: several years ago Mammo: 02/05/22 Pap: no longer gets these Last Labs: 02/25/21 covid: refused questions/concerns: multiple issues to discuss with you History of Present Illness BREAST PAIN ON AND OFF, NO LUMPS. NO REDNESS NO DRAINAGE. LOT OF ARTHRITIS PAIN OSEOPOROSIS GERD sharp PAINS IN ABD COME AND GOE AND BM'S ARE NORMAL. Review of Systems PHQ Score Initial Depression Screen Score: 0 Constitutional: no fever, no chills, no sweats, no weakness Skin: no Jaundice, no rash, no lesions, nopetechiae ENMT: no ear pain, no sore throat, no congestion, no hoarseness Respiratory: no shortness of breath, no cough, no orthopnea, no wheezing Cardiovascular: no chest pain, no palpitations, no edema Gastrointestinal: no nausea, no vomiting, no diarrhea, no GI bleeding Genitourinary: no dysuria, no hematuria, no discharge, no pain Musculoskeletal: no back pain, no trauma Neurologic: no headache, no dizziness, no numbness, no weakness Psychiatric: no sleeping problems, no irritability, no mood swings/depression. Heme/Lymph: no bleeding tendency, no bruising tendency, no petechiae, no swollen nodes Allergy/Immunologic: no seasonal allergies, no food allergies, no recurrent infections, no impaired immunity Additional ROS info: Except as noted in the above Review of Systems and in the History of Present Illness all other systems have been reviewed and are negative or noncontributory. Physical Exam Vitals & Measurements HR: 78(Peripheral) RR: 16 BP: 126/78 SpO2: 97% HT: 63 in HT: 160.3 cm WT: 71.2 kg WT: 156.64 lb BMI: 27.71 General: alert, no acute distress Skin: warm, dry LARGE BRUISE MEDIAL PROTION OF LEFT KNEE, SMALL HEMATOMA Head: no trauma, normocephalic Neck: Trachea midline, no adenopathy, no tenderness Eye: normal conjunctiva, sclera clear ENMT: TM's clear, oral mucosa moist, no pharyngeal erythema or exudate Cardiovascular: regular rate and rhythm, normal peripheral perfusion Respiratory: Lungs CTA, respirations non labored Chest wall: no deformity. SOME TENDER OVER THE MUSLCE LATERALL ON THE RIGHT NO LUMPS OR LESIONS Gastrointestinal: soft, non distended, no tenderness, no guarding. Back: No tenderness, Normal ROM, Normal alignment. Extremities: no deformity, no trauma DIFFUSE ARTHRITIS Neurological: oriented x 4, LOC appropriate for age, CN II-XII intact, motor strength equal & normal bilaterally, sensation equal & normal bilaterally, speech normal Psychiatric: cooperative, affect appropriate for age, normal judgement, normal psychiatric thoughts. Assessment/Plan CURRENTLY ON TYLENOL, HOLDING IBUPFOREN FOR TEAR DUCT SURGERY. DOES BETTER WITH IBUPROFEN, DOES NOT WANT ANYTHING STRONGER. SKIN LOT OF AK'S WILL DO SKIN SCREEN WITH DR CROWELL. EXERCISE EXPLAINED. OFFERED DIFFERNT NSAID'S BUT CURRENTLY NOT INTERESTED. PREVENTIVE MEDICINE EXPLAINED. POSSIBLE MUSCLE PAIN, CHECK CRP, AND LFT'S. 1. Osteoarthritis (M19.90: Unspecified osteoarthritis, unspecified site) Ordered: C-Reactive Protein CBC w/ Auto Diff Comprehensive Metabolic Panel Lipid Panel Thyroid Stimulating Hormone 2. Fatigue (R53.83: Other fatigue) Ordered: C-Reactive Protein CBC w/ Auto Diff Comprehensive Metabolic Panel Lipid Panel Thyroid Stimulating Hormone 3. Hypercholesterolemia (E78.00: Pure hypercholesterolemia, unspecified) Ordered: C-Reactive Protein CBC w/ Auto Diff Comprehensive Metabolic Panel Lipid Panel Thyroid Stimulating Hormone 4. GERD (gastroesophageal reflux disease) (K21.9: Gastro-esophageal reflux disease without esophagitis) 5. Muscle pain (M79.10: Myalgia, unspecified site) Skin cancer screening (Z12.83: Encounter for screening for malignant neoplasm of skin) Ordered: [facility] [place] Ambulatory Referral Orders: Body Mass Index (BMI) documented 3008F Current tobacco non-user 1036F Depression Screening Negative 3352F Influenza immunization status assessed 1030F Most recent diastolic blood pressure <80 mm Hg 3078F Patient screen for fall risk: no falls in last year or 1 fall with no injury in last year 1101F Systolic BP <130 mm Hg (Most Recent) 3074F Follow-up No qualifying data available Problem List/Past Medical History Ongoing Arthritis COVID-19 Depression GERD (gastroesophageal reflux disease) Hypercholesterolemia Hyperlipidemia Impingement of shoulder Labyrinthitis Left bundle branch block (LBBB) Low back pain Migraines Muscle pain Osteoarthritis Osteoporosis Radiculopathy Historical No qualifying data Procedure/Surgical History Arthroscopy of knee, Surgery. Medications ibuprofen 600 mg Tab, 600 mg= 1 tab(s), Oral, q6hr Allergies No Known Medication Allergies Social History Tobacco 4 or less cigarettes(les (more content not included)... Normal [facility] Comment on above: Result Comment: Elec tronically Signed By: AVILA PONCE, DARIA Warren\Nazbr\Date and Time Signed: 07/28/22 15:21 EDT MG MAMM SCREEN 3D PEDRO CADon 02-09-2022 MG MAMM SCREEN 3D PEDRO CAD Patient: HALIE MARTIN Exam Date: 02/09/2022 : 1950 Gender:F Ordering : DR DARIA VAZQUEZ . Admission #: [id number] Family : Order #: [id number] CLICK HERE TO VIEW EXAM RADIOLOGY REPORT PROCEDURE: MAMMOGRAM SCREENING 3D BILATERAL CAD COMPARISON: MG MAMM SCREEN PEDRO W CAD, 04/11/2020. MAMMO PEDRO SCREEN, 01/17/2019. INDICATIONS: Screening mammography Calculator Name NCI Breast Cancer Risk Assessment Tool 5 Year Breast Cancer Risk 1.60% Lifetime Breast Cancer Risk 4.10% Personal Breast Cancer No Personal Ovarian Cancer No Treatments None Family Cancers None LOCATION: [facility] BREAST COMPOSITION: Scattered areas fibroglandular density. FINDINGS: DIAGNOSTIC CATEGORY 2--BENIGN FINDING: RIGHT BREAST: No significant suspicious finding. Scattered benign-appearing calcifications are present. No significant change has occurred. LEFT BREAST: No significant suspicious finding. Scattered benign-appearing calcifications are present. No significant change has occurred. RECOMMENDATIONS: ROUTINE MAMMOGRAM AND CLINICAL EVALUATION IN 12 MONTHS. PLEASE NOTE: A NORMAL MAMMOGRAM DOES NOT EXCLUDE THE POSSIBILITY OF BREAST CANCER. A CLINICALLY SUSPICIOUS PALPABLE LUMP SHOULD BE BIOPSIED. Dictated by: Reinier Henderson M.D. on 02/10/2022 at 14:47 Approved by: Reinier Henderson M.D. on 02/10/2022 at 14:54 Normal [facility] MRI LSPINE WO CONon 11-24-19 MRI LSPINE WO CON EXAMINATION: MRI LSP INE WO CON HISTORY: Low back pain , radiculopathy; acute on chronic lumbar pain in right calf pain COMPARISON: No relevant comparison available. TECHNIQUE: A variety of imaging planes and parameters were utilized for visualization of suspected pathology. FINDINGS: For the purposes of numbering, sagittal T2 image # 8 extends from the T11 vertebral body superiorly to the S3 level inferiorly. PARASPINAL AREA: Normal with no visible mass. BONES: No fracture, pars defect, or osseous lesion. CORD/CAUDA EQUINA: Normal caliber, contour, and signal intensity. DISC LEVELS: 12-L1: No significant disc/facet abnormality, spinal stenosis, or foraminal stenosis. L1-L2: Early degenerative disc disease is present without focal protrusion or neural impingement. L2-L3: Minimal central canal narrowing. Mild foramen narrowing, left greater than right. Mild diffuse disc bulging and moderate disc height reduction. No significant facet arthropathy. L3-L4: Mild central canal and bilateral foramen narrowing. Moderate diffuse disc bulging without disc height reduction. Mild degenerative facet arthropathy. L4-L5: Mild central canal and mild-moderate bilateral foramen narrowing. Mild diffuse disc bulging without disc at reduction. Mild degenerative facet arthropathy. L5-S1: No significant central canal narrowing. Marked foramen narrowing bilaterally. Posterior disc-osteophyte complex and complete loss of disc height. Mild degenerative facet arthropathy bilaterally. IMPRESSION: 1. L5-S1 marked bilateral foraminal narrowing secondary to marked degenerative disc disease and mild degenerative facet arthropathy. 2. Multilevel mild foraminal narrowing secondary to degenerative disc disease and facet arthropathy. Electronically authenticated by: REINIER HENDERSON Date: 2021-11-23 18:01 Normal [facility] XR LSPINE MIN 4 VIEWSon 08- XR LSPINE MIN 4 VIEWS EXAMINATION: XR LSPINE MIN 4 VIEWS HISTORY: Backache ; chronic lumbar and right hip pain COMPARISON: No relevant comparison available. FINDINGS: BONES: No significant spondylosis, scoliosis, fracture, or visible bony lesion. DISC SPACES: L2-L3 mild narrowing. L5-S1 marked narrowing. PARASPINOUS: Negative. No paraspinous abnormality is seen. OTHER: Negative. IMPRESSION: 1. L5-S1 marked degenerative disc disease which may be contributing to patient's symptoms. 2. L2-L3 mild degenerative disc disease. Electronically authenticated by: REINIER HENDERSON Date: 2021-11-05 10:18 Normal [facility] XR HIP RT 2 3V WO PELVISon 0 11-04-2021 XR HIP RT 2 3V WO PELVIS EXAM: Right hip HISTORY: . Pain in right hip joint . COMPARISON: None. TECHNIQUE: 2 views FINDINGS: No fracture or dislocation of the right hip is noted. Joint spaces well-maintained. Surrounding soft tissues are unremarkable. IMPRESSION: Negative right hip. Electronically authenticated by: MILEY ANGEL Date: 2021-11-04 15:38 Normal [facility] SARS-CoV2 ANTIBODIES, NUCLEO CAPSIDon 02-27-2021 SARS-CoV-2 (COVID-19) RNA NARINDER+probe Ql (Unsp spec) Positive Normal Negative [facility] Comment on above: Result Comment: Resu lts suggest recent or prior infection with SARS-CoV-2. Correlation with epidemiologic risk factors and other clinical and laboratory findings is recommended. Serologic results should not be used as the sole basis to diagnose or exclude recent SARS-CoV-2 infection. False positive results infrequently occur due to prior infection with other human Coronaviruses. This assay will not detect antibodies induced by the currently available SARS-CoV-2 vaccines. The current vaccines elicit antibodies specific to the viral spike protein. [employer] offers two test codes that detect viral spike-specific antibodies: 742610 SARS-CoV-2 Semi-Quantitative Total Antibody, Cesar and 798988 SARS-CoV-2 Antibody, IgG, Cesar (Qualitative). Positive results with this SARS-CoV-2 Antibodies, Nucleocapsid assay suggest recent or previous natural infection with SARS-CoV-2. Performed By: #### C VDABS #### [facility] [address] [place] [address] Dr. Donny Ignacio CBC AUTO DIFFon 02-25-2021 BASO # 0.1 103/ul Normal 0.0-0.1 [facility] Comment on above: Performed By: #### C BC #### [facility] [address] [place] [address] Dr. Donny Ignacio Basophils/100 WBC (Bld) 1.1 % Normal 0.2-2.0 [facility] Comment on above: Performed By: #### C BC #### [facility] [address] [place] [address] Dr. Donny Ignacio EO # 0.3 103/ul Normal 0.0-0.7 [facility] Comment on above: Performed By: #### C BC #### [facility] [address] [place] [address] Dr. Donny Ignacio Eosinophils/100 WBC (Bld) 3.8 % Normal 0.9-7.0 [facility] Comment on above: Performed By: #### C BC #### [facility] [address] [place] [address] Dr. Donny Ignacio Erythrocyte distribution width (RBC) [Ratio] 12.5 % Normal 11.0-15.0 [facility] Comment on above: Performed By: #### C BC #### [facility] [address] [place] [address] Dr. Donny Ignacio Hematocrit (Bld) [Volume fraction] 37.9 % Normal 36.0-48.0 [facility] Comment on above: Performed By: #### C BC #### [facility] [address] [place] [address] Dr. Donny Ignacio Hemoglobin (Bld) [Mass/Vol] 12.5 g/dL Normal 12.0-16.0 [facility] Comment on above: Performed By: #### C BC #### [facility] [address] [place] [address] Dr. Donny Ignacio IG # 0.02 10e3/ul Normal 0.00-0.03 [facility] Comment on above: Performed By: #### C BC #### [facility] [address] [place] [address] Dr. Donny Ignacio IG % 0.3 % Normal 0.0-0.5 [facility] Comment on above: Performed By: #### C BC #### [facility] [address] [place] [address] Dr. Donny Ignacio LYMPH # 2.3 103/ul Normal 1.2-3.8 [facility] Comment on above: Performed By: #### C BC #### [facility] [address] [place] [address] Dr. Donny Ignacio Lymphocytes/100 WBC (Bld) 35.1 % Normal 20.5-60.0 [facility] Comment on above: Performed By: #### C BC #### [facility] [address] [place] [address] Dr. Donny Ignacio MANUAL DIFF REQ NO Normal [facility] Comment on above: Performed By: #### C BC #### [facility] [address] [place] [address] Dr. Donny Ignacio MCH (RBC) [Entitic mass] 30.8 pg Normal 26.7-34.0 [facility] Comment on above: Performed By: #### C BC #### [facility] [address] [place] [address] Dr. Donny Ignacio MCHC (RBC) [Mass/Vol] 33.0 g/dL Normal 29.9-35.2 [facility] Comment on above: Performed By: #### C BC #### [facility] [address] [place] [address] Dr. Donny Ignacio MCV (RBC) [Entitic vol] 93.3 fL Normal 81.0-99.0 [facility] Comment on above: Performed By: #### C BC #### [facility] [address] [place] [address] Dr. Donny Ignacio MONO # 0.5 103/ul Normal 0.3-0.8 [facility] Comment on above: Performed By: #### C BC #### [facility] [address] [place] [address] Dr. Donny Ignacio Monocytes/100 WBC (Bld) 7.0 % Normal 1.7-12.0 [facility] Comment on above: Performed By: #### C BC #### [facility] [address] [place] [address] Dr. Donny Ignacio NEUT # 3.5 103/ul Normal 1.4-6.5 [facility] Comment on above: Performed By: #### C BC #### [facility] [address] [place] [address] Dr. Donny Ignacio Neutrophils/100 WBC (Bld) 52.7 % Normal 43.0-75.0 [facility] Comment on above: Performed By: #### C BC #### [facility] [address] [place] [address] Dr. Donny Ignacio Platelet mean volume (Bld) [Entitic vol] 10.1 fL Normal 9.5-13.5 [facility] Comment on above: Performed By: #### C BC #### [facility] [address] [place] [address] Dr. Donny Ignacio PLT 318 103/ul Normal 150-450 [facility] Comment on above: Performed By: #### C BC #### [facility] [address] [place] [address] Dr. Donny Ignacio RBC 4.06 106/ul Critically low 4.20-5.40 [facility] Comment on above: Performed By: #### C BC #### [facility] [address] [place] [address] Dr. Donny Ignacio WBC 6.6 103/ul Normal 4.0-11.0 [facility] Comment on above: Performed By: #### C BC #### [facility] [address] [place] [address] Dr. Donny Ignacio CRPon 02-25-2021 CRP [Mass/Vol] mg/L Normal <=1.0 [facility] Comment on above: Performed By: #### C RP, TSH, LIPID, CMP #### [facility] [address] [place] [address] Dr. Donny Ignacio LIPID PROFILEon 02-25-2021 CHOL-HDL RATIO NORM SEE BELOW Normal [facility] Comment on above: Result Comment: 3.3 - 4.4 LOW RISK 4.4 - 7.1 AVERAGE RISK 7.1 - 11.0 MODERATE RISK >11.0 HIGH RISK Performed By: #### C RP, TSH, LIPID, CMP #### [facility] [address] [place] [address] Dr. Donny Ignacio Cholesterol [Mass/Vol] 246 mg/dL Critically high <=200 [facility] Comment on above: Performed By: #### C RP, TSH, LIPID, CMP #### [facility] [address] [place] [address] Dr. Donny Ignacio Cholesterol in HDL [Mass/Vol] 68 mg/dL Normal [facility] Comment on above: Performed By: #### C RP, TSH, LIPID, CMP #### [facility] [address] [place] [address] Dr. Donny Ignacio Cholesterol in LDL [Mass/Vol] 153.0 mg/dL Normal [facility] Comment on above: Performed By: #### C RP, TSH, LIPID, CMP #### [facility] [address] [place] [address] Dr. Donny Ignacio Cholesterol.total/Ch olesterol in HDL [Mass ratio] 3.6 {ratio} Normal [facility] Comment on above: Performed By: #### C RP, TSH, LIPID, CMP #### [facility] [address] [place] [address] Dr. Donny Ignacio HDL NORMAL > or = 60 mg/dl - LO W CARDIOVASCULAR RISK <40 mg/dl - HIGH CARDIOVASCULAR RISK Normal [facility] Comment on above: Performed By: #### C RP, TSH, LIPID, CMP #### [facility] [address] [place] [address] Dr. Donny Ignacio LDL CALC NORMAL SEE BELOW Normal [facility] Comment on above: Result Comment: <100 mg/dl OPTIMAL 100 - 129 mg/dl NEAR OR ABOVE OPTIMAL 130 - 159 mg/dl BORDERLINE HIGH 160 - 189 mg/dl HIGH >190 mg/dl VERY HIGH Performed By: #### C RP, TSH, LIPID, CMP #### [facility] [address] [address] [address] Donny Ignacio Triglyceride [Mass/Vol] 125 mg/dL Normal <=150 [facility] Comment on above: Performed By: #### C RP, TSH, LIPID, CMP #### [facility] [address] [address] [address] Donny Ignacio VLDL CALC 25.0 mg/dL Normal [facility] Comment on above: Performed By: #### C RP, TSH, LIPID, CMP #### [facility] [address] [address] [address] Donny Ignacio PROF 14(COMP METB)on 021 Albumin [Mass/Vol] 3.5 g/dL Normal 3.5-5.0 [facility] Comment on above: Performed By: #### C RP, TSH, LIPID, CMP #### [facility] [address] [address] [address] Donny Ignacio Albumin/Globulin [Mass ratio] 1.0 {ratio} Normal [facility] Comment on above: Performed By: #### C RP, TSH, LIPID, CMP #### [facility] [address] [address] [address] Donny Ignacio ALP [Catalytic activity/Vol] 81 U/L Normal 38-126 [facility] Comment on above: Performed By: #### C RP, TSH, LIPID, CMP #### [facility] [address] [address] [address] Donny Ignacio ALT [Catalytic activity/Vol] 22 U/L Normal 9-52 [facility] Comment on above: Performed By: #### C RP, TSH, LIPID, CMP #### [facility] [address] [address] [address] Donny Ignacio Anion gap [Moles/Vol] 12.5 mmol/L Normal [facility] Comment on above: Performed By: #### C RP, TSH, LIPID, CMP #### [facility] [address] [address] [address] Donny Ignacio AST [Catalytic activity/Vol] 20 U/L Normal 14-36 [facility] Comment on above: Performed By: #### C RP, TSH, LIPID, CMP #### [facility] [address] [address] [address] Donny Ignacio Bilirubin [Mass/Vol] 0.4 mg/dL Normal 0.2-1.3 [facility] Comment on above: Performed By: #### C RP, TSH, LIPID, CMP #### [facility] [address] [place] [address] Dr. Donny Ignacio Calcium [Mass/Vol] 9.3 mg/dL Normal 8.4-10.2 [facility] Comment on above: Performed By: #### C RP, TSH, LIPID, CMP #### [facility] [address] [place] [address] Dr. Donny Ignacio Chloride [Moles/Vol] 105 mmol/L Normal 98-107 [facility] Comment on above: Performed By: #### C RP, TSH, LIPID, CMP #### [facility] [address] [place] [address] Dr. Donny Ignacio CO2 [Moles/Vol] 27.5 mmol/L Normal 22.0-30.0 [facility] Comment on above: Performed By: #### C RP, TSH, LIPID, CMP #### [facility] [address] [place] [address] Dr. Donny Ignacio Creatinine [Mass/Vol] 0.67 mg/dL Normal 0.52-1.04 [facility] Comment on above: Performed By: #### C RP, TSH, LIPID, CMP #### [facility] [address] [address] [address] Donny Ignacio EGFR-AF PALAUAN >60 Normal >=60 [facility] Comment on above: Performed By: #### C RP, TSH, LIPID, CMP #### [facility] [address] [address] [address] Donny Ignacio EGFR-NON AF PALAUAN >60 Normal >=60 [facility] Comment on above: Performed By: #### C RP, TSH, LIPID, CMP #### [facility] [address] [address] [address] Donny Ignacio Globulin (S) [Mass/Vol] 3.6 g/dL Normal [facility] Comment on above: Performed By: #### C RP, TSH, LIPID, CMP #### [facility] [address] [address] [address] Donny Ignacio Glucose [Mass/Vol] 91 mg/dL Normal 74-106 [facility] Comment on above: Performed By: #### C RP, TSH, LIPID, CMP #### [facility] [address] [place] [address] Dr. Donny Ignacio Potassium [Moles/Vol] 4.0 mmol/L Normal 3.4-5.0 [facility] Comment on above: Performed By: #### C RP, TSH, LIPID, CMP #### [facility] [address] [address] [address] Donny Ignacio Protein [Mass/Vol] 7.1 g/dL Normal 6.1-8.2 [facility] Comment on above: Performed By: #### C RP, TSH, LIPID, CMP #### [facility] [address] [address] [address] Donny Ignacio Sodium [Moles/Vol] 141 mmol/L Normal 137-145 [facility] Comment on above: Performed By: #### C RP, TSH, LIPID, CMP #### [facility] [address] [address] [address] Donny Ignacio Urea nitrogen [Mass/Vol] 15.0 mg/dL Normal 7.0-17.0 [facility] Comment on above: Performed By: #### C RP, TSH, LIPID, CMP #### [facility] [address] [address] [address] Donny Ignacio Urea nitrogen/Creatinine [Mass ratio] 22.4 mg/mg Normal [facility] Comment on above: Performed By: #### C RP, TSH, LIPID, CMP #### [facility] [address] [address] [address] Donny Ignacio TSHon 02-25-2021 TSH 2.024 uIU/mL Normal 0.470-4.680 [facility] Comment on above: Performed By: #### C RP, TSH, LIPID, CMP #### [facility] [address] [address] [address] Donny Ignacio TSH RANGE SEE BELOW Normal [facility] Comment on above: Result Comment: <0.3 4 UIU/ml HYPERTHYROID 0.34-5.60 UIU/ml EUTHYROID >5.60 UIU/ml HYPOTHYROID Performed By: #### C RP, TSH, LIPID, CMP #### [facility] [address] [address] [address] Donny Ignacio CNOVon 01-18-2019 CNOV Office Visit (DERMCC ) HALIE MARTIN ([id number]) 1950 F Date Time Provider Department 01/18/19 10:45 AM MIKO MARTINEZ DERM During your visit today, we recorded the following information about you: Miko Martinez MD 01/18/2019 11:02 AM Signed 68 year old female here for upper body skin exam Multiple lesions Location back Present x 1 year Itches: Yes Has been getting irritated Has tried no treatments Also complaining of : itching Location Right upper back/shoulder Present x years Itches: Yes Has tried no treatments Personal history of skin cancer: BCC LT upper eyelid area at least 10+ years ago Derm Family history: No Denies fevers, chills Denies wt loss Denies new or changing moles No past medical history on file. Social History Tobacco Use - Smoking status: Not on file Substance Use Topics - Alcohol use: Not on file - Drug use: Not on file Allergies: ALLERGIES No Known Allergies Current Outpatient Medications on File Prior to Visit: atorvastatin calcium(LIPITOR 10 MG TAB) Take one(1) tablet daily. lansoprazole(PREVACID 15 MG CAP) Take one(1) capsule daily. methylprednisolone(MEDR OL (VICTOR HUGO) 4 MG TABS IN A DOSE PACK) Take as directed ibuprofen(MOTRIN 800 MG TAB) Take 1 every 8 hours with food tramadol hcl(ULTRAM 50 MG TAB) Take 1/2 or 1 every 3 to 4 hours as needed for pain No current facility-administered medications on file prior to visit. PE: Limited exam with Sherron Declined full exam/ upper body only General: no acute distress Mood: alert and oriented X's 3 Hair/Scalp: left parietal scalp stuck on brown plaque Face: mid forehead stuck on brown plaque -right lateral brow stuck on brown plaque Eyes/eyelids: normal Lips/Oral mucosa: normal Neck: normal Chest: stuck on brown plaque Abdomen: scattered stuck on brown plaque Back: midline upper back stuck on brown plaque -lowered back scattered stuck on brown plaque irritated x 2 R/L upper extremity: normal Digits/Nails: normal A/P: Seborrheic keratosis Educated and reassured AAD brochure luis keratosis given to patient History of basal cell carcinoma Sun protection and avoidance discussed with patient AAD brochure skin cancer given to patient Inflamed Seborrheic Keratosis Pruritus Cryo number 2 Post cryo care discussed Warned blister, redness, pain, hypopigmentation RTC prn Pt voiced understanding The documentation for this note was completed by Michelle Vallejo LPN/Sherron Roblero MA acting as scribe for Miko Martinez MD. January 18, 2019 10:37 AM. I agree with the Chief Complaint, ROS, and Past Histories independently gathered by the clinical presidential support specialist and the remaining scribed note accurately describes my personal service to the patient. Miko Martinez MD Referring Provider: SELF [[id number]] Allergies As of Date: 01/18/2019 (No Known Allergies) Date Reviewed: 01/18/2019 Reviewed by: Michelle Vallejo LPN - Fully Assessed Reason for Visit: LESION, SKIN [936] Primary Visit Diagnosis:Seborrheic keratoses [L82.1] Other Visit Diagnoses:Inflamed seborrheic keratosis [L82.0] Pruritus [L29.9] History of basal cell carcinoma [Z85.828] Prescriptions as of 01/18/2019 Sig: PRILOSEC ORAL Take by mouth. LIPITOR 10 MG TABLET Take one(1) tablet daily. PREVACID 15 MG CAPSULE,DELAYE* Take one(1) capsule daily. MEDROL (VICTOR HUGO) 4 MG TABLETS IN * Take as directed Patient not taking: MOTRIN 800 MG TABLET Take 1 every 8 hours with food Patient not taking: ADMINISTER WITH FOOD ULTRAM 50 MG TABLET Take 1/2 or 1 every 3 to 4 ho* Patient not taking: Problem List As Of Date 01/18/2019 Noted Resolved Low Back Pain Radiating to Left Leg [M54.5, M79*INVALID FOR* Disposition: Return if symptoms worsen or fail to improve. Follow-up and Disposition History Recorded Encounter Status:Closed by MIKO MARTINEZ MD on 01/18/19 [facility] PROGRESSon 01-18-2019 PROGRESS HNO ID: [id number] Author: Miko Martinez Service: ? Author Type: Physician Type: Progress Notes Filed: 01/18/2019 11:02 AM Note Text: 68 year old female here for upper body skin exam Multiple lesions Location back Present x 1 year Itches: Yes Has been getting irritated Has tried no treatments Also complaining of : itching Location Right upper back/shoulder Present x years Itches: Yes Has tried no treatments Personal history of skin cancer: BCC LT upper eyelid area at least 10+ years ago Derm Family history: No Denies fevers, chills Denies wt loss Denies new or changing moles No past medical history on file. Social History Tobacco Use - Smoking status: Not on file Substance Use Topics - Alcohol use: Not on file - Drug use: Not on file Allergies: ALLERGIES No Known Allergies Current Outpatient Medications on File Prior to Visit: atorvastatin calcium(LIPITOR 10 MG TAB) Take one(1) tablet daily. lansoprazole(PREVACID 15 MG CAP) Take one(1) capsule daily. methylprednisolone(MEDR OL (VICTOR HUGO) 4 MG TABS IN A DOSE PACK) Take as directed ibuprofen(MOTRIN 800 MG TAB) Take 1 every 8 hours with food tramadol hcl(ULTRAM 50 MG TAB) Take 1/2 or 1 every 3 to 4 hours as needed for pain No current facility-administered medications on file prior to visit. PE: Limited exam with Sherron Declined full exam/ upper body only General: no acute distress Mood: alert and oriented X's 3 Hair/Scalp: left parietal scalp stuck on brown plaque Face: mid forehead stuck on brown plaque -right lateral brow stuck on brown plaque Eyes/eyelids: normal Lips/Oral mucosa: normal Neck: normal Chest: stuck on brown plaque Abdomen: scattered stuck on brown plaque Back: midline upper back stuck on brown plaque -lowered back scattered stuck on brown plaque irritated x 2 R/L upper extremity: normal Digits/Nails: normal A/P: Seborrheic keratosis Educated and reassured AAD brochure luis keratosis given to patient History of basal cell carcinoma Sun protection and avoidance discussed with patient AAD brochure skin cancer given to patient Inflamed Seborrheic Keratosis Pruritus Cryo number 2 Post cryo care discussed Warned blister, redness, pain, hypopigmentation RTC prn Pt voiced understanding The documentation for this note was completed by Michelle Vallejo LPN/Sherron Roblero MA acting as scribe for Miko Martinez MD. January 18, 2019 10:37 AM. I agree with the Chief Complaint, ROS, and Past Histories independently gathered by the clinical presidential support specialist and the remaining scribed note accurately describes my personal service to the patient. Miko Martinez MD Normal [facility] Vital Signs Date Time Vital Sign Value Performing Clinician Faci lity 10-08-2019 16:12040 BMI (Body Mass Index) 29.23 kg/m2 Byron Meneses MPVZ-Hjzlzzmgihmxeh-T tarun Work Phone: 10-08-2019 16:12-0400 Body weight 74.84 kg Byron Meneses MP-Otolaryngolog y-S tarun Work Phone: 10-08-2019 16:12-0400 BSA (Body Surface Area) 1.78 m2 Byron Meneses MPPS-Kkyyxwqphdxvbq-E tarun Work Phone: 10-08-2019 16:12-040 Height 160.02 cm Byron Meneses MP-Otolaryngolog y-S tarun Work Phone: Encounters Encounter Date Encounter Type Care Provider Facility Start: 01-31-2023 End: 02-01-2023 ambulatory Chiara L Charu Facility[place] Start: 01-31-2023 End: 01-31-2023 Lab Drop off Chiara L Charu [facility] Start: 01-27-2023 End: 01-28-2023 ambulatory Chiara L Charu Facility: [facility] Start: 01-24-2023 ambulatory Chiara Charu Facility:[facility] Start: 08-19-2022 End: 08-19-2022 ambulatory Franky Martin Facility:[facility] Start: 07-28-2022 End: 07-29-2022 ambulatory DARIA VAZQUEZ Facility:[facility] Start: 02-09-2022 End: 02-10-[address] DARIA VAZQUEZ Facility:[facility] Start: 11-23-2021 End: 11-24-[address] DRAIA VAZQUEZ Facility:[facility] Start: 11-04-2021 End: 11-05-[address] DARIA VAZQUEZ Facility:[facility] Start: 02-25-2021 End: 02-26-[address] DARIA VAZQUEZ Facility: Procedures Date Procedure Procedure Detail Performing Clinician Start: 10-08-2019 Follow-up visit Arthroscopy of knee Chiara cardozab Comment on above: right meniscus 2014 Cataract (disorder) Chiara Jovita wab Repair of shoulder Chiara Schw ab Comment on above: R shoulder, calcium deposit removal Surgery (qualifier value) Yareli di Charu Comment on above: back 1999 Plan of Treatment Date Care Activity Detail Author Start: 01-30-2024 ambulatory Ambulatory Facility:[facility] Payers Date Payer Category Payer Self-pay 2022 Private Health Insurance [id number] 1960 Medicare [id number] 1960 Medicare [id number] 1950 Unknown [id number] 2.16.84 [id number] 1950 Unknown [id number] 2.16.84 [id number] 1950 Unknown [id number] 2.16.84 [id number] 1950 Unknown [id number] 2.16.84 [id number] 1950 Unknown [id number] 2.16.8 [id number] 1950 Unknown [id number] 2.16.8 [id number] 1950 Unknown [id number] 2.16.8 [id number] 1950 Unknown [id number] 2.16.8 [id number] 1950 Unknown [id number] 2.16.8 [id number] 1950 Unknown [id number] 2.16.8 [id number] Unknown [id number] 2.16.8 [id number] Social History Date Type Detail Facility Start: 01-27-2023 Tobacco smoking status Never smoked tobacco (finding) [facility] Comment on above: denies Tobacco smoking status Never [facility] Comment on above: denies Sex Assigned At Female [facility] NEGATED: Highlighted row - - MP- Otolaryngology-[facility] Work Phone: Functional Status Date Assessment Result Facility NEGATED: Highlighted row Functional performance Functional status health issues are not documented Disease LP-Dujwsunobtziss-[facility] [place] Work Phone: Mental Status Date Assessment Result Facility NEGATED: Highlighted row Cognitive function [Interpretation] Cognitive status health issues are not documented Disease FU-Kamipnfaddnnyd-V [facility] Work Phone: Evaluation + Plan note Note Date & Type Note Facility Evaluation + Plan note Future Appointments Appointment Date:01/30/2024 11:00:00 AM Scheduled Provider: Location:[facility] Appointment Type: Medicare Wellness Subsequent Diagnostic Tests PendingHCV Antibody RFX to Quant PCR 01/31/23 [facility] Hospital course Narrative Note Date & Type Note Facility Hospital course Narrative No data available for this section [facility] Hospital Discharge instructions Note Date & Type Note Facility Hospital Discharge instructions No data available for this section [facility] Progress note Note Date & Type Note Facility Progress note No data available for this section [facility] Summary Purpose Family History No Family History Records FoundNo Family History Records FoundNo Family History Records FoundNo Family History Records Found No data available for this section No Family History Records Found Advance Directives No Advanced Directives Records FoundNo Advanced Directives Records FoundNo Advanced Directives Records FoundNo Advanced Directives Records FoundNo Advanced Directives Records Found Additional Source Comments INFORMATION SOURCE (unrecogn ized section and content) DATE CREATED AUTHOR 01/18/2019 [facility] DATE CREATED AUTHOR AUTHOR'S ORGANIZ ATION 10/10/2019 [employer] DATE CREATED AUTHOR AUTHOR'S ORGANIZ ATION 02/13/2022 [facility] DATE CREATED AUTHOR AUTHOR'S ORGANIZ ATION 09/02/2022 [facility] DATE CREATED AUTHOR AUTHOR'S ORGANIZ ATION 03/02/2023 [facility] Patient Care team informatio n (unrecognized section and content) Personnel Name: Chiara Rainey Address: Address: [address] [place] [phone] FOR RECORDS PERTAINING TO PATIENTS WHO ARE OR HAVE BEEN ENROLLED IN A CHEMICAL DEPENDENCY/SUBSTANCEABUSE PROGRAM, SOME INFORMATION MAY BE OMITTED. This clinical summary was aggregated from multiple sources. Caution should be exercised in using it in the provision of clinical care. This summary normalizes information from multiple sources, and as a consequence, information in this document may materially change the coding, format and clinical context of patient data. In addition, data may be omitted in some cases. CLINICAL DECISIONS SHOULD BE BASED ON THE PRIMARY CLINICAL RECORDS. [facility] provides no warranty or guarantee of the accuracy or completeness of information in this document.
== END 2023-03-04 08:24 | disposition home or self-care (01) ==
LOC: RAD 08:23
PROVIDERS: PCP Family Medicine; Visit Provider Nurse Practitioner
DX: M81.0 Age-related osteoporosis without current pathological fracture (principal)
CPT/HCPCS: 77080

== ENCOUNTER 2023-05-20 06:57 | Emergency (ER) | payer MEDICARE, SELFPAY ==
[2023-05-20] VITALS (15 sets, daily range): BP systolic 128–162; BP diastolic 66–82; PULSE 67–86; RESP 17–23; TEMP 36.8; O2SAT 97–99; BMI 24.9
--- NOTE | 2023-05-20 07:08 | ECG_ITS ---
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
--- OUTSIDE RECORDS SUMMARY | 2023-05-20 07:14 | XMS_ITS | CCD ---
Author Name Unknown Address [address] [facility] [address] [place] [address] Organization [facility] Care Team Providers Care Web Coordinator Name Role Phone Byron Meneses Unavailable Unavailable [...] Calderon Consulting Unavailable MILEY ANGEL Consulting Unavailable Mario, Gene Suraj Attending Unavailable Mario, Gene Suraj Admitting Unavailable NO FAMILY, PHYSICIAN Primary Care Unavailable Chiara Box Primary Care Physician Charu, MIKKI Fuentes Attending Unavailable VAZQUEZDARIA CAT Attending Unavailable Charu, MIKKI Fuentes Attending Unavailable Charu, MIKKI Fuentes Attending Unavailable Charu, MIKKI Fuentes Attending Unavailable Charu, ORTHOTIC TECHNICIAN Chiara L Admitting Unavailable Charu, ORTHOTIC TECHNICIAN Chiara Fuentes Attending Unavailable Allergies Allergy Classification Reported Allergen(s) Allergy Type Date of Onset Reaction(s) Facility (2 sources) Poison Kaycee; Translations: [Poison Kaycee] Propensity to adverse reactions to substance [facility] (1 source) No Known Medication Allergies; Translations: [No Known Medication Allergies] Propensity to adverse reactions (disorder) [facility] Repository NEGATED: Highlighted row has been ruled out! (1 source) Drug allergy [facility] Medications Current Medications Medication Drug Class(es) Dates [...] Test Name Value Interpretation Reference Range Facility Dexa Scanson 03-04-2023 Dexa Scans [id number]#1.00T IFF Normal [facility] RAD - Ultrasound Reporton RAD - Ultrasound Report [id number]#[id number] IFF Normal [facility] Physician Orderon 02-18-2023 Physician Order [id number]#1.00T IFF Normal [facility] .Interpretation:on 3 HCV Ab IA Ql Comment Invalid Interpretation Code [facility] Comment on above: Result Comment: Not infected with HCV unless early or acute infection is suspected (which may be delayed in an immunocompromised individual), or other evidence exists to indicate HCV infection. Performed at: [facility] [id number] PhD No Ornelas Performed By: #### 2 866216, [id number], 6603246, 8593946, 2990559, 0776829, 48480814, [id number] ####[facility] [address] [place] [address] HCV Antibody RFX to Quant PC Rodolfo 02-02-2023 HCV IgG IA Ql Non-Reactive Invalid Interpretation Code Non Reactive [facility] Comment on above: Result Comment: Perf ormed at: [facility] [id number] PhD No Ornelas Performed By: #### 2 541050, [id number], 8780912, 9442106, 3461527, 4347308, 99755285, [id number] ####[facility] [address] [place] [address] Patient Logson 02-01-2023 Patient Logs [id number] IFF Normal [facility] Auto Diffon 01-31-2023 Basophils/100 WBC (Bld) 1.1 % Normal 0.0-2.0 [facility] Comment on above: Order Comment: Order Added by Discern Expert. Performed By: #### 2 903458, [id number], 2888341, 3940054, 3222835, 8025896, 27643283, 7356503606 ####[address] [address] Basophils/Leukocytes Auto (Bld) [Pure # fraction] 0.1 E9/L Normal 0.0-0.2 [facility] Comment on above: Order Comment: Order Added by Discern Expert. Performed By: #### 2 475684, 3440353157, 2064292, 1088022, 0686965, 8305809, 06078355, 4497330083 ####[address] [address] Eosinophils/100 WBC (Bld) 3.3 % Normal 0.0-8.0 [facility] Comment on above: Order Comment: Order Added by Discern Expert. Performed By: #### 2 714307, 0676211083, 8771324, 3764919, 8491912, 8786669, 75048598, 2615621463 ####[address] [place] [address] Eosinophils/Leukocyt es Auto (Bld) [Pure # fraction] 0.2 E9/L Normal 0.0-0.5 [facility] Comment on above: Order Comment: Order Added by Discern Expert. Performed By: #### 2 229942, 5325928742, 7535521, 0330776, 1254424, 3139897, 81303031, 0622877557 ####[address] [place] [address] Lymphocytes/100 WBC (Bld) 33.7 % Normal 14.0-50.0 [facility] Comment on above: Order Comment: Order Added by Discern Expert. Performed By: #### 2 479301, 4268785098, 2052678, 4628276, 1636409, 1861365, 33110152, 2019110075 ####[address] [address] Lymphocytes/Leukocyt es Auto (Bld) [Pure # fraction] 2.2 E9/L Normal 1.0-4.0 [facility] Comment on above: Order Comment: Order Added by Discern Expert. Performed By: #### 2 239754, 7304455162, 3228347, 9650280, 0061931, 7626452, 15282156, 7198456951 ####[address] [address] Monocytes/100 WBC (Bld) 6.5 % Normal 4.0-14.0 [facility] Comment on above: Order Comment: Order Added by Helen Expert. Performed By: #### 2 208936, 1100301141, 8746095, 1052820, 9507608, 4614815, 35965788, 5267440698 ####[address] [address] Monocytes/Leukocytes Auto (Bld) [Pure # fraction] 0.4 E9/L Normal 0.2-1.0 [facility] Comment on above: Order Comment: Order Added by Helen Expert. Performed By: #### 2 390470, 0064943669, 5472878, 7057402, 0547409, 9196851, 82373494, 6953999758 ####[address] [place] [address] Neutrophils/100 WBC (Bld) 55.4 % Normal 36.0-75.0 [facility] Comment on above: Order Comment: Order Added by Helen Expert. Performed By: #### 2 864805, 4681263112, 3967503, 1871506, 4439084, 2501126, 08437765, 6621037648 ####[address] [address] Neutrophils/Leukocyt es Auto (Bld) [Pure # fraction] 3.7 E9/L Normal 2.0-7.5 [facility] Comment on above: Order Comment: Order Added by Discern Expert. Performed By: #### 2 861220, 0996826713, 6105317, 0938380, 1441806, 3579095, 54261382, 6213859262 ####[address] [place] [address] CBC w/ Auto Diffon 3 Erythrocyte distribution width (RBC) [Ratio] 13.1 % Normal 10.9-14.2 [facility] Comment on above: Performed By: #### 2 049397, 1504240084, 0272942, 2393207, 3885146, 1689943, 49863534, 9488926896 ####[address] [place] [address] Hematocrit (Bld) [Volume fraction] 37.5 % Normal 34.0-46.0 [facility] Comment on above: Performed By: #### 2 849548, 5537386040, 4194872, 7083168, 6357584, 7082326, 98071771, 5163609690 ####[address] [address] Hemoglobin (Bld) [Mass/Vol] 12.3 g/dL Normal 12.0-16.0 [facility] Comment on above: Performed By: #### 2 600949, 8868196136, 0267820, 5273640, 2082163, 9561434, 33347651, 4159752379 ####[address] [place] [address] MCH (RBC) [Entitic mass] 29.4 pg Normal 27.0-34.0 [facility] Comment on above: Performed By: #### 2 714825, 4921715483, 1163937, 0877639, 5519650, 0715010, 51756122, 9585553283 ####[address] [place] [address] MCHC (RBC) [Mass/Vol] 32.9 g/dL Normal 31.4-36.0 [facility] Comment on above: Performed By: #### 2 013343, 4134607178, 9895272, 0617399, 0232216, 8002081, 26692921, 0435123933 ####[address] [address] MCV (RBC) [Entitic vol] 89.5 fL Normal 80.0-100.0 [facility] Comment on above: Performed By: #### 2 666436, 8456862281, 8368793, 8189966, 3796070, 3791277, 70978688, 4111595711 ####[place] [address] Platelet mean volume (Bld) [Entitic vol] 8.6 fL Normal 6.4-10.8 [facility] Comment on above: Performed By: #### 2 027168, 2832412806, 8971377, 7094058, 9664621, 1883102, 54071592, 1992903054 ####[address] [address] Platelets (Bld) [#/Vol] 333.0 E9/L Normal 150.0-500.0 [facility] Comment on above: Performed By: #### 2 855034, 2640927773, 6639621, 2257643, 0148645, 6018877, 39821088, 8304711859 ####[facility] [address] [place] [address] RBC (Bld) [#/Vol] 4.2 E12/L Low 4.3-5.9 [facility] Comment on above: Performed By: #### 2 255353, 1932276546, 7397577, 5860734, 0276631, 7106916, 04582665, 6022907498 ####[address] [address] WBC corrected for nucl RBC Auto (Bld) [#/Vol] 6.6 E9/L Normal 4.0-11.0 [facility] Comment on above: Performed By: #### 2 391841, 5586294359, 6422562, 6513483, 1031615, 3602590, 02695840, 1306359545 ####[facility] [address] [place] [address] CHEMISTRYOrdered By: SYSTEM SYSTEM on 01-31-2023 Albumin [...] 26 mmol/L Normal 21 - 31 mmol/L FT [facility] Creatinine [Mass/Vol] 0.8 mg/dL Normal 0.5 - 1.3 mg/dL [facility] GFR/1.73 sq M.predicted among non-blacks MDRD (S/P/Bld) [Vol rate/Area] 78 mL/min/1.73 m2 Normal >=59mL/min/1 .73 m2 [facility] Chem S Comment on above: Interpretive Data: [...] 4.2 mmol/L Normal 3.5 - 5.3 mmol/L [facility] Protein [Mass/Vol] 7.8 g/dL Normal 6.0 - 7.8 gm/dL [facility] Sodium [Moles/Vol] 140 mmol/L Normal 135 - 145 mmol/L [facility] Triglyceride [Mass/Vol] 132 mg/dL Normal <=149mg/dL [facility] TSH Qn 2.33 m[IU]/L Normal 0.34 - 5.60 mcIU/mL [facility] Urea nitrogen [Mass/Vol] 15 mg/dL Normal 5 - 21 mg/dL [facility] Urea nitrogen/Creatinine [Mass ratio] 19 mg/mg Normal 10 - 20 [facility] CMPon 01-31-2023 Albumin [Mass/Vol] 4.0 g/dL Normal 3.3-5.0 [facility] Comment on above: Performed By: #### 2 966337, 8183787116, 5526389, 3200420, 9093624, 3946715, 86229377, 6063218629 ####[place] [address] Albumin/Globulin (S) [Mass conc ratio] 1.0 Low 1.1-2.2 [facility] Comment on above: Performed By: #### 2 454490, 9890509442, 3134632, 1296456, 3315317, 6423677, 27572311, 2121328322 ####[address] [place] [address] ALP [Catalytic activity/Vol] 78 Int._Unit/L Normal 21-98 [facility] Comment on above: Performed By: #### 2 897681, 4704270251, 6293812, 7231144, 8021108, 9706986, 39348909, 1171499764 ####[address] [address] ALT No additional P-5'-P [Catalytic activity/Vol] 14 Int._Unit/L Normal 6-46 [facility] Comment on above: Performed By: #### 2 737487, 1437103942, 3288178, 3029525, 4783450, 8950564, 46107080, 0049280632 ####[address] [address] Anion gap [Moles/Vol] 11 mmol/L Normal 6-16 [facility] Comment on above: Performed By: #### 2 137247, 3160684913, 6682707, 7736882, 5935596, 8457103, 30466153, 7960417501 ####[address] [address] AST [Catalytic activity/Vol] 21 Int._Unit/L Normal 5-43 [facility] Comment on above: Performed By: #### 2 262265, 0551344004, 7148308, 3885980, 4406710, 4305327, 10024580, 6076303705 ####[address] [address] Bilirubin [Mass/Vol] 0.8 mg/dL Normal 0.0-1.1 [facility] Comment on above: Performed By: #### 2 268951, 8709036623, 2527301, 0133626, 6904467, 5874001, 37122012, 0277087928 ####[facility] [address] [place] [address] Calcium [Mass/Vol] 9.6 mg/dL Normal 8.9-11.1 [facility] Comment on above: Performed By: #### 2 560028, 8783264597, 1457332, 4137204, 6870093, 5613086, 88921262, 0451039135 ####[facility] [address] [place] [address] Chloride [Moles/Vol] 107 mmol/L Normal 101-111 [facility] Comment on above: Performed By: #### 2 122073, 8839737435, 3116020, 8755524, 0777506, 8190861, 29492027, 9685056907 ####[facility] [address] [place] [address] CO2 [Moles/Vol] 26 mmol/L Normal 21-31 [facility] Comment on above: Performed By: #### 2 923960, 5488018755, 3829156, 4939180, 7975032, 1705464, 78871845, 8036437415 ####[facility] [address] [place] [address] Creatinine [Mass/Vol] 0.8 mg/dL Normal 0.5-1.3 [facility] Comment on above: Performed By: #### 2 361186, 0571155658, 6684867, 4587478, 1467184, 8194152, 50327717, 7724322111 ####[facility] [address] [place] [address] Globulin (S) [Mass/Vol] 3.8 g/dL Normal 1.4-4.0 [facility] Comment on above: Performed By: #### 2 058544, 4392397192, 4969165, 8947949, 6745077, 4779294, 90889721, 5237654652 ####[facility] [address] [place] [address] Glucose [Mass/Vol] 88 mg/dL Normal 55-199 [facility] Comment on above: Result Comment: If t his glucose result represents a fasting glucose, interpretation should refer to the following reference range: 55-99 mg/dL Performed By: #### 2 551730, 6175191536, 3072202, 2447084, 2253643, 7569150, 40419053, 1918529454 ####[facility] [address] [place] [address] Potassium [Moles/Vol] 4.2 mmol/L Normal 3.5-5.3 [facility] Comment on above: Performed By: #### 2 902508, 6555461564, 7217309, 5656962, 6471991, 3588213, 37506679, 9465327551 ####[facility] [address] [place] [address] Protein [Mass/Vol] 7.8 g/dL Normal 6.0-7.8 [facility] Comment on above: Performed By: #### 2 930051, 3574204795, 4248266, 4300048, 4888010, 8408888, 49773840, 8861393511 ####[facility] [address] [place] [address] Sodium [Moles/Vol] 140 mmol/L Normal 135-145 [facility] Comment on above: Performed By: #### 2 409751, 2406936576, 8034259, 6491998, 9729699, 2189719, 66370419, 8634013020 ####[facility] [address] [place] [address] Urea nitrogen [Mass/Vol] 15 mg/dL Normal 5-21 [facility] Comment on above: Performed By: #### 2 322809, 1079467324, 7018248, 9346035, 2081841, 7581309, 76217640, 9948006080 ####[facility] [address] [place] [address] Urea nitrogen/Creatinine [Mass ratio] 19 No Units Normal 12-31 [facility] Comment on above: Performed By: #### 2 279230, 0656733712, 7354185, 9738622, 5149945, 6612139, 90498296, 7066153361 ####[facility] [address] [place] [address] HEMATOLOGYOrdered By: SYSTEM SYSTEM on 01-31-2023 Basophils/100 [...] 37.5 % Normal 34.0 - 46.0 % FT HemeAutoSS Hemoglobin (Bld) [Mass/Vol] 12.3 g/dL Normal 12.0 - 16.0 gm/dL FT HemeAutoSS MCH (RBC) [Entitic mass] 29.4 pg Normal 27.0 - 34.0 pg FT HemeAutoSS MCHC (RBC) [Mass/Vol] 32.9 g/dL Normal 31.4 - 36.0 gm/dL FT HemeAutoSS MCV (RBC) [Entitic vol] 89.5 fL Normal 80.0 - 100.0 fL [facility] HemeAutoSS Platelet mean volume (Bld) [Entitic vol] 8.6 fL Normal 6.4 - 10.8 fL FT HemeAutoSS Platelets (Bld) [#/Vol] 333.0 E9/L Normal 150.0 - 500.0 E9/L [facility] HemeAutoSS RBC (Bld) [#/Vol] 4.2 E12/L Low 4.3 - 5.9 E12/L FT HemeAutoSS WBC corrected for nucl RBC Auto (Bld) [#/Vol] 6.6 E9/L Normal 4.0 - 11.0 E9/L [facility] HemeAutoSS Lipid Panelon 01-31-2023 Cholesterol [Mass/Vol] 268 mg/dL High 120-200 [facility] Comment on above: Performed By: #### 2 026194, 5198734842, 1815447, 3922231, 7268430, 4332683, 17596985, 5303222583 ####[facility] [address] [place] [address] Cholesterol in HDL [Mass/Vol] 69 mg/dL Invalid Interpretation Code [facility] Comment on above: Result Comment: HDL > or equal to 60 mg/dL: Low cardiovascular risk HDL < 40 mg/dL : High cardiovascular risk Performed By: #### 2 082787, 0573590090, 3150051, 3347881, 9608679, 7839694, 69778442, 6396285701 ####[facility] [address] [place] [address] Cholesterol in LDL [Mass/Vol] 162 mg/dL High <=129 [facility] Comment on above: Performed By: #### 2 787854, 1093001798, 6199526, 9967033, 8746817, 0604986, 32703031, 6969902656 ####[facility] [address] [place] [address] Cholesterol in VLDL [Mass/Vol] 26 mg/dL Normal 7-40 [facility] Comment on above: Performed By: #### 2 611824, 8462515502, 3938082, 8859611, 8142434, 7611673, 18034293, 0318260098 ####[facility] [address] [place] [address] Triglyceride [Mass/Vol] 132 mg/dL Normal <=149 [facility] Comment on above: Performed By: #### 2 663892, 0971305243, 9991794, 6428805, 1457883, 4459445, 74578507, 2006583838 ####[facility] [address] [place] [address] Nurse Consultation Noteon Nurse Consultation Note Reason [...] Poison Kaycee No Known Medication Allergies Normal [facility] TSHon 01-31-2023 TSH Qn 2.33 m[IU]/L Normal 0.34-5.60 [facility] Comment on above: Performed By: #### 2 496330, 8771169877, 6442503, 7970544, 9829675, 4766478, 44954918, 5303211376 ####[facility] [address] [place] [address] eGFRon 01-31-2023 GFR/1.73 sq M.predicted among non-blacks MDRD (S/P/Bld) [Vol rate/Area] 78 mL/min/1.73 m2 Normal >=59 [facility] Comment on above: Order Comment: Order added by Discern Expert. Result Comment: Studio Receptionist giselle kidney disease could be indicated at eGFR's of less than 60 mL/min/1.73m2. Kidney failure is indicated at less than 15 mL/min/1.73m2. Performed By: #### 2 721530, 3339607137, 5626507, 3222806, 4541196, 4691692, 07263931, 6260994133 ####[facility] [address] [place] [address] Formson 01-28-2023 Forms [id number] IFF Normal [facility] Ambulatory Visit Summaryon 1 03-29-2022 Ambulatory [...] Follow-Up Appointments Tuesday 9:40 AM EST Where: [facility] Invalid Interpretation Code [address] [place] [address]- \\.br \\ You Need to Complete the Following\\.b r\\ CBC w/ Auto Diff, Blood, Routine collect, 01/27/23, Order for future visit, Lab Collect, Elevated blood pressure reading [facility] Ambulatory Visit Summary HALIE MARTIN :1950 [...] for choosing us for your care. Normal [facility] Family Medicine Office/Clini c Noteon 01-27-2023 [...] of clutter to prevent tripping and/or falling. [place] Advance Directives reviewed, patient has copy at [...] scheduled: 01/31/23 Will have labs completed with [facility]. Reviewed pain symptoms with patient: denies pain [...] it needs to be returned back via [facility] for testing. Reminded patient this kit will not be mailed out to them until they verify this order and mailing address by a sales representative health insurance from [employer]. Encouraged patient it would be OK for them to call [employer] if they have not received a call [...] again. Form was completed and faxed to [employer] with patient's demographics and insurance information. Patient will be notified by PCP with the results, this can take up to 7-10 days. Cologuard ordered and forms completed and faxed to [employer]. 4. Screening mammogram for breast cancer (Z12.31: [...] to patient. Mammogram ordered and faxed to [facility]. Pt has been advised no deodorant, sprays or lotions. Last completed 02/09/22. 5. Other problems related to lifestyle (Z72.89: Other problems related to lifestyle) Information provided and d (more content not included)... Normal [facility] Comment on above: Result Comment: Elec tronically Signed By: Chiara Rainey\\.br\\Date and Time Signed: 01/27/23 15:28 EST\\.br\\Electronically Co-Signed By: Stone Petty\\Date and Time Co-Signed: 01/27/23 14:53 EST Family Medicine Office/Clinic Note HPI Staff Halie is a 72 year old female presenting for [facility] care Establish Care: History: Any previous diagnosis: Gerd, Depression, Osteoarthritis, hypercholesterolemia, HLD, Migraines History of seeing any specialist: Podiatry, Dr Hill. Dannie, Opthalm. ENT Dr Meneses. Dr Guerrero, Dermatology When was your last doctors visit: Last provider: avila - 20 years. Any recent labs: last year [facility] Health Maintenance UTD: Colonoscopy: no, refused Mammogram: [...] Hypertension: Sibling.Negative: Brother. Renal failure syndrome: Sibling. Normal [facility] Comment on above: Result Comment: Elec tronically Signed By: Chiara Rainey\\.rodney\\Date and Time Signed: 01/27/23 14:26 EST Formson 01-27-2023 Forms [id number] FF [facility] Patient Educationon 01-28-20 23 Patient Education Caregiving [...] night-lights. ? Place frequently used items in fujc-kq-vtkot places. Lower the shelves around your home [...] the way. ? Do not use floor senegalese or wax that makes floors slippery. If [...] include working with a physical therapist or business trainer to improve your strength, balance, and endurance. Where to find more information ? Centers for Disease Control and Prevention, [place]IMADI: www.cdc.gov ? National [place] on Aging: www.pratima.nih.gov Contact a health care [...] your health ca (more content not included)... [facility] Screenson 01-27-2023 Screens [id number]#1.00TI FF [facility] Pre-Visit Planningon 023 Pre-Visit Planning - From: Dedra Damon To: Chiara Rainey; Sent: 01/25/2023 14:11:37 EST Subject: Pre-Visit Planning Due Date/Time: 01/25/2023 14:11:00 EST Caller Name: HLAIE MARTIN; Caller Number: , Mickey Guadarrama. During a pre-visit planning chart review, I [...] feel free to contact me at extension [phone]. Thank you! Dedra Damon LPN From: Chiara Rainey To: Dedra Damon; Sent: 01/26/2023 13:15:12 EST Subject: RE: Pre-Visit Planning Caller Name: HALIE MARTIN; Caller Number: Lizbet , aKylynn major depressive disorder, mild recurrent Normal [address] [facility] Yobany 08-19-2022 L --- Specimen: [id number] Received: 08/19/22 Status: LUZMA Avtar Num: [id number] Spec Type: Surgical Subm Dr: Franky Martin MD Tissues: A Bone Fragments - Other than Path Fracture (LT NASAL BONE FRAGMENTS/LT L) Procedures: HE, Gross/Micro L3, Decalcification Age/ Patient Sex Location Account Attending Physician MarioAngiHalie L 72/F [place] [id number] Franky Martin MD SPEC NUM: [id number] RECD: 08/19/22 STATUS: LUZMA NOVA NUM: [id number] FREDY: 08/19/[address] [facility] [address]: Franky Martin MD ENTERED: 08/19/[address] [facility] [address]: [place] TYPE: Surgical DEPT: S ORDERED: [...] support the above pathologic diagnosis. CPT Codes 98987, 70345 Specimen: [id number] Received: 08/19/22 Status: LUZMA Nova Num: [id number] Spec Type: Surgical Subm Dr: Franky Martin MD Tissues: A Bone Fragments - Other than Path Fracture (LT NASAL BONE FRAGMENTS/LT L) Procedures: JANIE, Gross/Micro L3, Decalcification Patient: Halie Martin [id number] (Continued) Signed (signature on file) Desmond Cornelius MD 08/24/22 1516 Normal [facility] [place] [facility] 08-10-2022 Lab Reports [id number] D:127 Normal [facility] Physician Referralon 023 Physician Referral [id number] CD:127 Normal [facility] Ambulatory Visit Summaryon 0 07-28-2022 Ambulatory [...] Someone Will Contact You Regarding These Appointments [facility] External Ambulatory Referral, Dermatology, DR CROWELL FOR [...] Migraines Muscle pain Osteoarthritis Osteoporosis Radiculopathy Normal [facility] Family Medicine Office/Clini c Noteon 07-28-2022 [...] screening for malignant neoplasm of skin) Ordered: [facility] External Ambulatory Referral Orders: Body Mass Index [...] less cigarettes(les (more content not included)... Normal [facility] Comment on above: Result Comment: Elec tronically Signed By: AVILA PONCE, DARIA Victor\\Date and Time Signed: 07/28/22 15:21 EDT MG MAMM SCREEN 3D PEDRO CADon 02-09-2022 MG MAMM SCREEN 3D PEDRO CAD Patient: HALIE MARTIN Exam Date: 02/09/2022 : 1950 Gender:F Ordering : DR DARIA VAZQUEZ . Admission #: [id number] Family : Order #: [id number] CLICK HERE TO VIEW EXAM RADIOLOGY REPORT PROCEDURE: MAMMOGRAM SCREENING 3D BILATERAL CAD COMPARISON: MG MAMM SCREEN PEDRO W CAD, 04/11/2020. MAMMO PEDRO SCREEN, 01/17/2019. INDICATIONS: Screening mammography Calculator Name NCI Breast Cancer Risk Assessment Tool 5 Year Breast Cancer Risk 1.60% Lifetime Breast Cancer Risk 4.10% Personal Breast Cancer No Personal Ovarian Cancer No Treatments None Family Cancers None LOCATION: [facility] BREAST COMPOSITION: Scattered areas fibroglandular density. FINDINGS: [...] M.D. on 02/10/2022 at 14:54 Normal [facility] MRI LSPINE WO CONon 11-24-19 MRI LSPINE [...] REINIER HENDERSON Date: 2021-11-23 18:01 Normal [facility] XR LSPINE MIN 4 VIEWSon 10-13 XR LSPINE MIN 4 VIEWS EXAMINATION: XR [...] REINIER HENDERSON Date: 2021-11-05 10:18 Normal [facility] XR HIP RT 2 3V WO PELVISon [...] MILEY ANGEL Date: 2021-11-04 15:38 Normal [facility] SARS-CoV2 ANTIBODIES, NUCLEO CAPSIDon 02-27-2021 SARS-CoV-2 (COVID-19) RNA NARINDER+probe Ql (Unsp spec) Positive Normal Negative [facility] Comment on above: Result Comment: Resu lts [...] antibodies specific to the viral spike protein. [employer] offers two test codes that detect viral spike-specific antibodies: 301887 SARS-CoV-2 Semi-Quantitative Total Antibody, Cesar and 066666 SARS-CoV-2 Antibody, IgG, Cesar (Qualitative). Positive results with this SARS-CoV-2 Antibodies, Nucleocapsid assay suggest recent or previous natural infection with SARS-CoV-2. Performed By: #### C VDABS #### [facility] [address] [place] [address] Dr. Donny Ignacio CBC AUTO DIFFon 02-25-2021 BASO # 0.1 103/ul Normal 0.0-0.1 [facility] Comment on above: Performed By: #### C BC #### [facility] [address] [place] [address] Dr. Donny Ignacio Basophils/100 WBC (Bld) 1.1 % Normal 0.2-2.0 [facility] Comment on above: Performed By: #### C BC #### [facility] [address] [place] [address] Dr. Donny Ignacio EO # 0.3 103/ul Normal 0.0-0.7 [facility] Comment on above: Performed By: #### C BC #### [facility] [address] [place] [address] Dr. Donny Ignacio Eosinophils/100 WBC (Bld) 3.8 % Normal 0.9-7.0 [facility] Comment on above: Performed By: #### C BC #### [facility] [address] [place] [address] Dr. Donny Ignacio Erythrocyte distribution width (RBC) [Ratio] 12.5 % Normal 11.0-15.0 [facility] Comment on above: Performed By: #### C BC #### [facility] [address] [place] [address] Dr. Donny Ignacio Hematocrit (Bld) [Volume fraction] 37.9 % Normal 36.0-48.0 [facility] Comment on above: Performed By: #### C BC #### [facility] [address] [place] [address] Dr. Donny Ignacio Hemoglobin (Bld) [Mass/Vol] 12.5 g/dL Normal 12.0-16.0 [facility] Comment on above: Performed By: #### C BC #### [facility] [address] [place] [address] Dr. Donny Ignacio IG # 0.02 10e3/ul Normal 0.00-0.03 [facility] Comment on above: Performed By: #### C BC #### [facility] [address] [place] [address] Dr. Donny Ignacio IG % 0.3 % Normal 0.0-0.5 [facility] Comment on above: Performed By: #### C BC #### [facility] [address] [place] [address] Dr. Donyn Ignacio LYMPH # 2.3 103/ul Normal 1.2-3.8 [facility] Comment on above: Performed By: #### C BC #### [facility] [address] [place] [address] Dr. Donny Ignacio Lymphocytes/100 WBC (Bld) 35.1 % Normal 20.5-60.0 [facility] Comment on above: Performed By: #### C BC #### [facility] [address] [place] [address] Dr. Donny Ignacio MANUAL DIFF REQ NO Normal [facility] Comment on above: Performed By: #### C BC #### [facility] [address] [place] [address] Dr. Donny Ignacio MCH (RBC) [Entitic mass] 30.8 pg Normal 26.7-34.0 [facility] Comment on above: Performed By: #### C BC #### [facility] [address] [place] [address] Dr. Donny Ignacio MCHC (RBC) [Mass/Vol] 33.0 g/dL Normal 29.9-35.2 [facility] Comment on above: Performed By: #### C BC #### [facility] [address] [place] [address] Dr. Donny Ignacio MCV (RBC) [Entitic vol] 93.3 fL Normal 81.0-99.0 [facility] Comment on above: Performed By: #### C BC #### [facility] [address] [place] [address] Dr. Donny Ignacio MONO # 0.5 103/ul Normal 0.3-0.8 [facility] Comment on above: Performed By: #### C BC #### [facility] [address] [place] [address] Dr. Donny Ignacio Monocytes/100 WBC (Bld) 7.0 % Normal 1.7-12.0 [facility] Comment on above: Performed By: #### C BC #### [facility] [address] [place] [address] Dr. Donny Ignacio NEUT # 3.5 103/ul Normal 1.4-6.5 [facility] Comment on above: Performed By: #### C BC #### [facility] [address] [place] [address] Dr. Donny Ignacio Neutrophils/100 WBC (Bld) 52.7 % Normal 43.0-75.0 [facility] Comment on above: Performed By: #### C BC #### [facility] [address] [place] [address] Dr. Donny Ignacio Platelet mean volume (Bld) [Entitic vol] 10.1 fL Normal 9.5-13.5 [facility] Comment on above: Performed By: #### C BC #### [facility] [address] [place] [address] Dr. Donny Ignacio PLT 318 103/ul Normal 150-450 [facility] Comment on above: Performed By: #### C BC #### [facility] [address] [place] [address] Dr. Donny Ignacio RBC 4.06 106/ul Critically low 4.20-5.40 [facility] Comment on above: Performed By: #### C BC #### [facility] [address] [place] [address] Dr. Donny Ignacio WBC 6.6 103/ul Normal 4.0-11.0 [facility] Comment on above: Performed By: #### C BC #### [facility] [address] [address] [address] Donny Ignacio CRPon 02-25-2021 CRP [Mass/Vol] mg/L Normal <=1.0 [facility] Comment on above: Performed By: #### C RP, TSH, LIPID, CMP #### [facility] [address] [address] [address] Donny Ignacio LIPID PROFILEon 02-25-2021 CHOL-HDL RATIO NORM SEE BELOW Normal [facility] Comment on above: Result Comment: 3.3 - 4.4 LOW RISK 4.4 - 7.1 AVERAGE RISK 7.1 - 11.0 MODERATE RISK >11.0 HIGH RISK Performed By: #### C RP, TSH, LIPID, CMP #### [facility] [address] [address] [address] Donny Ignacio Cholesterol [Mass/Vol] 246 mg/dL Critically high <=200 [facility] Comment on above: Performed By: #### C RP, TSH, LIPID, CMP #### [facility] [address] [address] [address] Donny Ignacio Cholesterol in HDL [Mass/Vol] 68 mg/dL Normal [facility] Comment on above: Performed By: #### C RP, TSH, LIPID, CMP #### [facility] [address] [address] [address] Donny Ignacio Cholesterol in LDL [Mass/Vol] 153.0 mg/dL Normal [facility] Comment on above: Performed By: #### C RP, TSH, LIPID, CMP #### [facility] [address] [address] [address] Donny Ignacio Cholesterol.total/Ch olesterol in HDL [Mass ratio] 3.6 {ratio} Normal [facility] Comment on above: Performed By: #### C RP, TSH, LIPID, CMP #### [facility] [address] [address] [address] Donny Ignacio HDL NORMAL > or = 60 mg/dl - LO W CARDIOVASCULAR RISK <40 mg/dl - HIGH CARDIOVASCULAR RISK Normal [facility] Comment on above: Performed By: #### C RP, TSH, LIPID, CMP #### [facility] [address] [address] [address] Donny Ignacio LDL CALC NORMAL SEE BELOW Normal [place] Comment on above: Result Comment: <100 mg/dl OPTIMAL 100 - 129 mg/dl NEAR OR ABOVE OPTIMAL 130 - 159 mg/dl BORDERLINE HIGH 160 - 189 mg/dl HIGH >190 mg/dl VERY HIGH Performed By: #### C RP, TSH, LIPID, CMP #### [facility] [address] [address] [address] Donny Ignacio Triglyceride [Mass/Vol] 125 mg/dL Normal <=150 [facility] Comment on above: Performed By: #### C RP, TSH, LIPID, CMP #### [facility] [address] [address] [address] Donny Ignacio VLDL CALC 25.0 mg/dL Normal [facility] Comment on above: Performed By: #### C RP, TSH, LIPID, CMP #### [facility] [address] [address] [address] Donny Ignacio PROF 14(COMP METB)on 021 Albumin [Mass/Vol] 3.5 g/dL Normal 3.5-5.0 [facility] Comment on above: Performed By: #### C RP, TSH, LIPID, CMP #### [facility] [address] [address] [address] Donny Ignacio Albumin/Globulin [Mass ratio] 1.0 {ratio} Normal [facility] Comment on above: Performed By: #### C RP, TSH, LIPID, CMP #### [facility] [address] [address] [address] Donny Ignacio ALP [Catalytic activity/Vol] 81 U/L Normal 38-126 [facility] Comment on above: Performed By: #### C RP, TSH, LIPID, CMP #### [facility] [address] [address] [address] Donny Ignacio ALT [Catalytic activity/Vol] 22 U/L Normal 9-52 [facility] Comment on above: Performed By: #### C RP, TSH, LIPID, CMP #### [facility] [address] [place] [address] Dr. Donny Ignacio Anion gap [Moles/Vol] 12.5 mmol/L Normal [facility] Comment on above: Performed By: #### C RP, TSH, LIPID, CMP #### [facility] [address] [place] [address] Dr. Donny Ignacio AST [Catalytic activity/Vol] 20 U/L Normal 14-36 [facility] Comment on above: Performed By: #### C RP, TSH, LIPID, CMP #### [facility] [address] [place] [address] Dr. Donny Ignacio Bilirubin [Mass/Vol] 0.4 mg/dL Normal 0.2-1.3 [facility] Comment on above: Performed By: #### C RP, TSH, LIPID, CMP #### [facility] [address] [place] [address] Dr. Donny Ignacio Calcium [Mass/Vol] 9.3 mg/dL Normal 8.4-10.2 [facility] Comment on above: Performed By: #### C RP, TSH, LIPID, CMP #### [facility] [address] [place] [address] Dr. Donny Ignacio Chloride [Moles/Vol] 105 mmol/L Normal 98-107 [facility] Comment on above: Performed By: #### C RP, TSH, LIPID, CMP #### [facility] [address] [place] [address] Dr. Donny Ignacio CO2 [Moles/Vol] 27.5 mmol/L Normal 22.0-30.0 [facility] Comment on above: Performed By: #### C RP, TSH, LIPID, CMP #### [facility] [address] [place] [address] Dr. Donny Ignacio Creatinine [Mass/Vol] 0.67 mg/dL Normal 0.52-1.04 [facility] Comment on above: Performed By: #### C RP, TSH, LIPID, CMP #### [facility] [address] [address] [address] Donny Ignacio EGFR-AF EMIRATI >60 Normal >=60 [facility] Comment on above: Performed By: #### C RP, TSH, LIPID, CMP #### [facility] [address] [address] [address] Donny Ignacio EGFR-NON AF EMIRATI >60 Normal >=60 [facility] Comment on above: Performed By: #### C RP, TSH, LIPID, CMP #### [facility] [address] [address] [address] Donny Ignacio Globulin (S) [Mass/Vol] 3.6 g/dL Normal [facility] Comment on above: Performed By: #### C RP, TSH, LIPID, CMP #### [facility] [address] [address] [address] Donny Ignacio Glucose [Mass/Vol] 91 mg/dL Normal 74-106 [facility] Comment on above: Performed By: #### C RP, TSH, LIPID, CMP #### [facility] [address] [address] [address] Donny Ignacio Potassium [Moles/Vol] 4.0 mmol/L Normal 3.4-5.0 [facility] Comment on above: Performed By: #### C RP, TSH, LIPID, CMP #### [facility] [address] [address] [address] Donny Ignacio Protein [Mass/Vol] 7.1 g/dL Normal 6.1-8.2 [facility] Comment on above: Performed By: #### C RP, TSH, LIPID, CMP #### [facility] [address] [address] [address] Donny Ignacio Sodium [Moles/Vol] 141 mmol/L Normal 137-145 [facility] Comment on above: Performed By: #### C RP, TSH, LIPID, CMP #### [facility] [address] [address] [address] Donny Ignacio Urea nitrogen [Mass/Vol] 15.0 mg/dL Normal 7.0-17.0 [facility] Comment on above: Performed By: #### C RP, TSH, LIPID, CMP #### [facility] [address] [address] [address] Donny Ignacio Urea nitrogen/Creatinine [Mass ratio] 22.4 mg/mg Normal [facility] Comment on above: Performed By: #### C RP, TSH, LIPID, CMP #### [facility] [address] [address] [address] Donny Ignacio TSHon 02-25-2021 TSH 2.024 uIU/mL Normal 0.470-4.680 [facility] Comment on above: Performed By: #### C RP, TSH, LIPID, CMP #### [facility] [address] [place] [address] Dr. Donny Ignacio TSH RANGE SEE BELOW Normal [facility] Comment on above: Result Comment: <0.3 4 UIU/ml HYPERTHYROID 0.34-5.60 UIU/ml EUTHYROID >5.60 UIU/ml HYPOTHYROID Performed By: #### C RP, TSH, LIPID, CMP #### [facility] [address] [place] [address] Dr. Donny JAMESOVon 01-18-2019 [facility] Office Visit (DERMCC ) HALIE MARTIN ([id number]) 1950 F Date Time Provider Department 01/18/19 10:45 AM MIKO MARTINEZ During your visit today, we recorded the [...] Past Histories independently gathered by the clinical production support consultant and the remaining scribed note accurately describes my personal service to the patient. Miko Martinez MD Referring Provider: SELF [200] Allergies As of Date: 01/18/2019 (No Known Allergies) Date Reviewed: 01/18/2019 Reviewed by: Michelle Vallejo SERVICE BAR CASHIER - Fully Assessed Reason for Visit: LESION, [...] Status:Closed by MIKO MARTINEZ MD on 01/18/19 Normal [facility] PROGRESSon 01-18-2019 PROGRESS HNO ID: [id number] Author: Miko Martinez Service: ? Author Type: [...] Past Histories independently gathered by the clinical production support consultant and the remaining scribed note accurately describes my personal service to the patient. Miko Martinez MD Normal [facility] Vital Signs Date Time Vital Sign Value Performing Clinician Faci lity 10-08-2019 16:12-0400 BMI (Body Mass Index) 29.23 kg/m2 Byron Meneses MPGR-Ywbotqxeuknvsk-C [place] Work Phone: 10-08-2019 16:12-0400 Body weight 74.84 kg Byron Meneses MP-Otolaryngolog [facility] Work Phone: 10-08-2019 16:12-0400 BSA (Body Surface Area) 1.78 m2 Byron Meenses MPTS-Twqnedehmzauxi-W [employer] Work Phone: 10-08-2019 16:12-0400 Height 160.02 cm Byron Meneses MP-Otolaryngolog y-S [employer] Work Phone: Encounters Encounter Date Encounter Type Care Provider Facility Start: 01-31-2023 End: 02-01-2023 ambulatory ORTHOTIC TECHNICIAN Chiara L Charu Facility:[facility] Start: 01-31-2023 End: 01-31-2023 Lab Drop off Chiara L Charu [facility] Start: 01-27-2023 End: 01-28-2023 ambulatory ORTHOTIC TECHNICIAN Chiara L Charu Facility: [facility] [place] [facility] Start: 01-24-2023 ambulatory ORTHOTIC TECHNICIAN Chiara Charu Facilit y:[facility] Start: 08-19-2022 End: 08-19-2022 ambulatory Franky Martin Facility:[facility] Start: 07-28-2022 End: 07-29-2022 ambulatory DARIA VAZQUEZ Facility:[facility] Start: 02-09-2022 End: 02-10-[address] DARIA VAZQUEZ Facility:[facility] Start: 11-23-2021 End: 11-24-[address] DARIA VAZQUEZ Facility:[facility] Start: 11-04-2021 End: 11-05-[address] DARIA VAZQUEZ Facility:[facility] Start: 02-25-2021 End: 02-26-[address] DARIA VAZQUEZ Facility:[facility] Procedures Date Procedure Procedure Detail Performing Clinician Start: 10-08-2019 Follow-up visit Arthroscopy of knee Chiara steen Comment on above: right meniscus 2014 Cataract (disorder) Chiara Jovita wab Repair of shoulder Chiara Schw ab Comment on above: R shoulder, calcium deposit removal Surgery (qualifier value) Yareli di Charu Comment on above: back 1999 Plan of Treatment Date Care Activity Detail Author Start: 01-30-2024 ambulatory Ambulatory Facility: [facility] Payers Date Payer Category Payer Self-pay 2022 Private Health Insurance [id number] 1960 Medicare [id number] 1960 Medicare [id number] 1950 Unknown [id number] 2.16.84 [id number] 1950 Unknown [id number] 2.16.84 [id number] 1950 Unknown [id number] 2.16.84 [id number] 1950 Unknown [id number] 2.16.84 [id number] 1950 Unknown [id number] 2.16.8 [id number] 1950 Unknown [id number] 2.16.8 [id number] 1950 Unknown [id number] 2.16.8 [id number] 1950 Unknown [id number] 2.16.8 [id number] 1950 Unknown [id number] 2.16.8 [id number] 1950 Unknown [id number] 2.16.8 [id number] Unknown [id number] 2.16.8 [id number] Social History Date Type Detail Facility Start: 01-27-2023 Tobacco smoking status Never smoked tobacco (finding) [facility] Comment on above: denies Tobacco smoking status Never [facility] Comment on above: denies Sex Assigned At Female [facility] NEGATED: Highlighted row - - MP- Otolaryngology-[facility] Work Phone: Functional Status Date Assessment Result Facility NEGATED: Highlighted row Functional performance Functional status health issues are not documented Disease PO-[facility]irtjs-E [facility] Work Phone: Mental Status Date Assessment Result Facility NEGATED: Highlighted row Cognitive function [Interpretation] Cognitive status health issues are not documented Disease VE[facility] Work Phone: Evaluation + Plan note Note Date & Type Note Facility Evaluation + Plan note Future Appointments Appointment Date:01/30/2024 11:00:00 AM Scheduled Provider: Location[facility] Appointment Type: Medicare Wellness Subsequent Diagnostic Tests PendingHCV Antibody RFX to Quant PCR 01/31/23 [facility] Hospital course Narrative Note Date & Type Note Facility Hospital course Narrative No data available for this section [facility] Hospital Discharge instructions Note Date & Type Note Facility Hospital Discharge instructions No data available for this section [facility] Progress note Note Date & Type Note Facility Progress note No data available for this section [facility] Summary Purpose Family History No Family [...] section and content) DATE CREATED AUTHOR 01/18/2019 [facility] DATE CREATED AUTHOR AUTHOR'S ORGANIZ ATION 10/10/2019 [employer] DATE CREATED AUTHOR AUTHOR'S ORGANIZ ATION 02/13/2022 [facility] DATE CREATED AUTHOR AUTHOR'S ORGANIZ ATION 09/02/2022 [facility] DATE CREATED AUTHOR AUTHOR'S ORGANIZ ATION 03/05/2023 [facility] Patient Care team informatio n (unrecognized section and content) Personnel Name: Chiara Rainey Address: Address: [address] [place] [id number] FOR RECORDS PERTAINING TO PATIENTS WHO ARE [...] BE BASED ON THE PRIMARY CLINICAL RECORDS. [facility] [employer] [facility]. provides no warranty or guarantee of the accuracy or completeness of information in this document."
[2023-05-20] MEDS: HYOSCYAMINE SULFATE 0.125 MG TAB.SUBL SL (07:38)
[2023-05-20] MEDS: PANTOPRAZOLE SODIUM 40 MG VIAL IV (07:38)
[2023-05-20] MEDS: ONDANSETRON PF 4 MG/2 ML VIAL IV (07:38)
[2023-05-20] MEDS: 0.9 % SODIUM CHLORIDE 1,000 ML 999 ML IV (07:39)
--- NOTE | 2023-05-20 07:39 | XR_ITS ---
The [address] [address] Patient Name: ANA MATT MRN: [id number] date: 1950 Sex: F Assigned Patient Location: ER Current Patient Location: ED.MAIN Accession/Order Number: [id number] Exam Date: 05/20/2023 07:30 Report Date: 05/20/2023 07:56 At the request of: EJFF SANDERSON Procedure: XR chest 1V EXAMINATION: XR chest 1V HISTORY: upper abdominal pain , epigastric pain, nausea COMPARISON: No relevant comparison available. FINDINGS: LUNGS: No significant pulmonary parenchymal abnormalities. VASCULATURE: No increased pulmonary vasculature. PLEURA: No pneumothorax, effusion, or pleural thickening. CARDIAC: No cardiomegaly or cardiac silhouette abnormality. MEDIASTINUM: No visible mass or adenopathy. BONES: No fracture or visible bone lesion. OTHER: Negative. XR/XR chest 1V IMPRESSION: 1. No acute cardiopulmonary process or significant chronic changes. Electronically authenticated by: DANIELLA PLEITEZ Date: 05/20/2023 07:56
[2023-05-20 07:42] LABS: Basophils Absolute Auto 0.1 10^3/uL (0.0-0.1); Basophils Percent Auto 0.7 % (0.2-2.0); Eosinophils Absolute Auto 0.3 10^3/uL (0.0-0.7); Eosinophils Percent Auto 2.8 % (0.9-7.0); Hematocrit 37.2 % (36.0-48.0); Hemoglobin 11.9 g/dL (12.0-16.0); Immature Granulocytes Abs Auto 0.04 10^3/uL (0.00-0.03); Immature Granulocytes Pct Auto 0.3 % (0.0-0.5); Lymphocytes Absolute Auto 1.9 10^3/uL (1.2-3.8); Lymphocytes Percent Auto 15.8 % (20.5-60.0); Mean Corpuscular Hemoglobin 28.7 pg (26.7-34.0); Mean Corpuscular Volume 89.6 fL (81.0-99.0); Monocytes Percent Auto 8.5 % (1.7-12.0); Neutrophils Absolute Auto 8.7 10^3/uL (1.4-6.5); Neutrophils Percent Auto 71.9 % (43.0-75.0); Platelet Count 311 10^3/uL (150-450); Red Blood Count 4.15 10^6/uL (4.20-5.40); Red Cell Distribution Width 13.2 % (11.0-15.0); White Blood Count 12.1 10^3/uL (4.0-11.0)
[2023-05-20 07:55] LABS: Alanine Aminotransferase 21 U/L (14-59); Albumin Globulin Ratio 0.8; Albumin Level 3.4 g/dL (3.4-5.0); Alkaline Phosphatase 102 U/L (46-116); Anion Gap 16.3; Aspartate Amino Transferase 95 U/L (15-37); BUN Creatinine Ratio 13.8; Bilirubin Total 1.4 mg/dL (0.2-1.0); Carbon Dioxide 25.4 mmol/L (21.0-32.0); Chloride 100 mmol/L (98-107); Estimated GFR (African America >60 (>=60); Estimated GFR (Non-African Ame >60 (>=60); Globulin 4.2 g/dL; Glucose 109 mg/dL (74-106); Potassium 3.7 mmol/L (3.5-5.1); Sodium 138 mmol/L (136-145); Total Protein 7.6 g/dL (6.4-8.2)
[2023-05-20 07:58] LABS: Troponin I High Sensitivity <4.0 pg/mL (4.0-51.3)
[2023-05-20] MEDS: HYDROMORPHONE HCL 0.5 MG/0.5 ML SYRINGE IV (08:37)
--- NOTE | 2023-05-20 08:50 | PC.NURSE ---
0850 - PT OUT DOOR WITH [facility] [place] [facility]
--- NOTE | 2023-05-20 09:39 | ED_ITS ---
HPI - Abdominal Pain General Chief Complaint: Abdominal Pain Stated Complaint: GENERAL WEAKNESS Time Seen by Provider: 05/20/23 07:08 Source: patient Mode of arrival: walk-in Limitations: no limitations History of Present Illness HPI narrative: developed upper mid abdominal pain yesterday while [id number] back from [place]. She said that she ate chickens trips with sauce for lunch and has not eaten since. She admits to some belching but no heartburn symptoms. Told us that it feels different than her GERD symptoms. She took some tylenol for the pain last night - nothing today. No fever or chills.No flank pain or urinary symptoms. No vomiting or diarrhea. She vomited twice about a week ago - no associated abd pain at that time and the nausea quickly resolved. She said she threw up phlegm and not food . Related Data Previous Rx's Medication Instructions Recorded hyoscyamine sulfate 0.125 mg 0.125 mg PO Q6H PRN abdominal pain 05/20/23 sublingual tablet (Levsin/SL) #20 tabs ondansetron 4 mg disintegrating 4 mg PO Q6H PRN nausea and 05/20/23 tablet vomiting #14 tabs Allergies Allergy/AdvReac Type Severity Reaction Status Date / Time No Known Drug Allergies Allergy Verified 05/20/23 07:07 [facility] Social History Smoking status: Never smoker Exam Narrative Exam Narrative: Nurses notes and vital signs reviewed and patient is not hypoxic. Afebrile General: Well-appearing and in no apparent distress. Skin: Warm, dry, no pallor noted. No rash to abdomen or flank. Head: Normocephalic, atraumatic. Neck: Supple, non-tender. Eye: Pupils are equal, round and EOMI. No scleral icterus. Cardiovascular: Regular Rate and Rhythm without murmur, gallop or rub. Respiratory: No accessory muscle use or respiratory distress. Lungs are clear to auscultation, no wheezing, rales or rhonchi Chest Wall: no tenderness, crepitus or subcutaneous emphysema Back: No CVA tenderness Musculoskeletal: normal ROM GI: Abdomen is soft, non-distended. Normal bowel sounds. No masses appreciated. Epigastric tenderness to palpation. No rebound, guarding, or rigidity noted. Neurological: A&O x4. No cranial nerve dysfunction observed. No truncal ataxia. Moves all extremities. Sensation intact. Psychiatric: Cooperative and interactive. Normal mood and affect. Constitutional Vital Signs, click to edit/add: Last Vital Signs Temp 98.2 F 05/20/23 07:03 Pulse 70 05/20/23 08:40 Resp 17 05/20/23 08:40 BP 152/74 H 05/20/23 08:30 Pulse Ox 99 05/20/23 08:40 O2 Del Method Room Air 05/20/23 07:03 Course Vital Signs Vital signs: Vital Signs Temperature 98.2 F 05/20/23 07:03 Pulse Rate 82 05/20/23 07:03 Respiratory Rate 18 05/20/23 07:03 Blood Pressure 162/82 H 05/20/23 07:03 Pulse Oximetry 97 05/20/23 07:03 Oxygen Delivery Method Room Air 05/20/23 07:03 Temperature 98.2 F 05/20/23 07:03 Pulse Rate 70 05/20/23 08:40 Respiratory Rate 17 05/20/23 08:40 Blood Pressure 152/74 H 05/20/23 08:30 Pulse Oximetry 99 05/20/23 08:40 Oxygen Delivery Method Room Air 05/20/23 07:03 MDM - Abdominal Pain MDM Narrative Medical decision making narrative: Patient was placed on soaking pit operator and EKG obtained. Blood drawn and sent for evaluation. CT scan of the abdomen pelvis was ordered to be obtained. Our CT scanner is currently unavailable. Therefore the patient was sent to [facility] to undergo her CT scan. She was then returned to our emergency department to await results. CBC with slightly elevated white blood cell count at 12. CMP is normal including normal LFTs, negative lipase, normal bilirubin. Negative troponin. EKG reveals left bundle branch block, which limits identify any potential ST elevation. However troponin is negative x 2 draws. She received NS IVF, IV Zofran for nausea and IV Dilaudid for pain. CT report from the radiologist did not identify any acute process in the abdomen or pelvis. The patient has diverticulosis without focal diverticulitis. There are multiple areas of decreased attenuation within the liver. He recommends dedicated MRI of the liver with contrast. This can be obtained by the primary care provider an an out-patient basis. Results discussed with the patient. She felt better after ED treatment. She was discharged home with prescriptions for Levsin and Zofran, recommendation for clear liquid diet today, advance tomorrow as tolerated. ED return if she worsens. She takes prilosec daily - I encouraged her to continue to take that. She also has some concerns about painful lesions on her back, some of which had previously been biopsied. I examined her and she does not have herpes zoster - the lesions look like keratosis along with some age spots. I encouraged her to see the video game creator for follow up. Lab Data Attestation: I reviewed the patient's lab results. Labs: Lab Results 05/20/23 05/20/23 Range/Units 07:15 10:21 WBC 12.1 H (4.0-11.0) 10^3/uL RBC 4.15 L (4.20-5.40) 10^6/uL Hgb 11.9 L (12.0-16.0) g/dL Hct 37.2 (36.0-48.0) % MCV 89.6 (81.0-99.0) fL MCH 28.7 (26.7-34.0) pg MCHC 32.0 (29.9-35.2) g/dL RDW 13.2 (11.0-15.0) % Plt Count 311 (150-450) 10^3/uL MPV 10.0 (9.5-13.5) fL Neut % (Auto) 71.9 (43.0-75.0) % Lymph % (Auto) 15.8 L (20.5-60.0) % Navarro % (Auto) 8.5 (1.7-12.0) % Eos % (Auto) 2.8 (0.9-7.0) % Baso % (Auto) 0.7 (0.2-2.0) % Neut # (Auto) 8.7 H (1.4-6.5) 10^3/uL Lymph # (Auto) 1.9 (1.2-3.8) 10^3/uL Navarro # (Auto) 1.0 H (0.3-0.8) 10^3/uL Eos # (Auto) 0.3 (0.0-0.7) 10^3/uL Baso # (Auto) 0.1 (0.0-0.1) 10^3/uL Abs Immat Gran (auto) 0.04 H (0.00-0.03) 10^3/uL Imm/Tot Granulo (auto) 0.3 (0.0-0.5) % Sodium 138 (136-145) mmol/L Potassium 3.7 (3.5-5.1) mmol/L Chloride 100 (98-107) mmol/L Carbon Dioxide 25.4 (21.0-32.0) mmol/L Anion Gap 16.3 BUN 11.0 (7.0-18.0) mg/dL Creatinine 0.80 (0.55-1.02) mg/dL Est GFR ( Amer) >60 (>=60) Est GFR (Non-Af Amer) >60 (>=60) BUN/Creatinine Ratio 13.8 Glucose 109 H (74-106) mg/dL Calcium 9.0 (8.5-10.1) mg/dL Total Bilirubin 1.4 H (0.2-1.0) mg/dL AST 95 H (15-37) U/L ALT 21 (14-59) U/L Alkaline Phosphatase 102 (46-116) U/L Troponin I High Sens <4.0 L <4.0 L (4.0-51.3) pg/mL Total Protein 7.6 (6.4-8.2) g/dL Albumin 3.4 (3.4-5.0) g/dL Globulin 4.2 g/dL Albumin/Globulin Ratio 0.8 Lipase 51.0 (16.0-77.0) U/L Imaging Data CT scan - abdomen: My impression: report scanned from [facility] radiologist - no acute process in the abdomen/pelvis. Diverticulosis without diverticulitis. Multiple areas of decreased attenuation within the liver, not well identified on this noncontrast study. Differential includes numerous benign and malignant etiologies. Recommend correlation with prior imaging. If available, otherwise consider dedicated follow-up CT or MRI of the liver with contrast. Radiologist's impression: ITS Impressions Chest X-Ray 05/20/23 07:39 IMPRESSION: 1. No acute cardiopulmonary process or significant chronic changes. Electronically authenticated by: DANIELLA PLEITEZ Date: 05/20/2023 07:56 Discharge Plan Discharge Stand Alone Forms: Portal Instructions Chief Complaint: Abdominal Pain Clinical Impression: Gastritis, Abdominal pain Patient Disposition: Home, Self-Care Time of Disposition Decision: 11:34 Prescriptions / Home Meds: New ondansetron 4 mg tablet,disintegrating 4 mg PO Q6H PRN (Reason: nausea and vomiting) Qty: 14 0RF hyoscyamine sulfate [Levsin/SL] 0.125 mg tablet, sublingual 0.125 mg PO Q6H PRN (Reason: abdominal pain) Qty: 20 0RF Instructions: Gastritis (ED), Abdominal Pain (ED) Referrals: INDU AMARAL [Primary Care Provider] - 1 week
--- NOTE | 2023-05-20 10:33 | PC.NURSE ---
1015- PT RETURNS FROM [facility] – [place]
[2023-05-20 10:51] LABS: Troponin I High Sensitivity <4.0 pg/mL (4.0-51.3)
== END 2023-05-20 11:50 | disposition home or self-care (01) ==
PROVIDERS: Emergency Provider Emergency Medicine; PCP Family Medicine
DX: K29.70 Gastritis, unspecified, without bleeding (principal); R10.9 Unspecified abdominal pain
CPT/HCPCS: 36415; 71045; 74176; 80053; 83690; 84484; 85025; 93005; 96374; 96375; 99285; J1170

== ENCOUNTER 2024-02-03 08:47 | Outpatient (OUT) | payer MEDICARE, SELFPAY ==
--- OUTSIDE RECORDS SUMMARY | 2024-02-03 09:09 | XMS_ITS | CCD ---
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 Name Role Phone Byron Syed Unavailable Unavailable Vazquez, Daria Warren Unavailable Unavailable Byron Syed Unavailable Unavailable VAZQUEZ, DR DARIA Warren Consulting [...] Unavailable NO FAMILY, PHYSICIAN Primary Care Unavailable Charu, Chiara L Primary Care Physician [phone] BYRON SYED Attending Unavailable VAZQUEZ, DARIA GOVEA Primary Care Unavailable Dharmesh Coughlin Attending Unavailable Charu, WOOD TREATING INSPECTOR Chiara L Admitting Unavailable Charu, WOOD TREATING INSPECTOR Chiara L Attending Unavailable Charu, WOOD TREATING INSPECTOR Chiara L Attending Unavailable Charu, WOOD TREATING INSPECTOR Chiara L Attending Unavailable Charu, WOOD TREATING INSPECTOR Chiara L Attending Unavailable Charu, WOOD TREATING INSPECTOR Chiara L Attending Unavailable Charu, WOOD TREATING INSPECTOR Chiara L Attending Unavailable Allergies Allergy Classification Reported Allergen(s) Allergy Type Date of Onset Reaction(s) Facility (3 sources) Poison Liang; Translations: [POISON LIANG] Propensity to adverse reactions to substance 4 [facility] (1 source) No Known Medication Allergies; Translations: [No Known Medication Allergies] Propensity to adverse reactions (disorder) [facility] Repository NEGATED: Highlighted row has been ruled out! (1 source) Drug allergy [facility] Medications Current Medications Medication Drug Class(es) Dates [...] Translations: [PERSONAL HISTORY OF COVID-19] Onset: 03-03-2021 Unclassified (2 sources) Hoarseness; Translations: [Hoarseness] Onset: 11-23-2023 Viral infection (1 source) Disease caused by 2019-nCoV 07-28-2022 Comment on above: 10/2020 Past or Other Problems Problem Classification Problem Date Documented Da te Episodic/Chronic Other connective tissue disease (4 sources) Myalgia, unspecified site; Translations: [MYALGIA UNSPECIFIED SITE] Onset: 02-25-2021 Episodic Other non-traumatic joint disorders (1 source) Joint disorder, unspecified; Translations: [JOINT DISORDER UNSPECIFIED] Onset: 08-25-2022 Episodic Other non-traumatic joint disorders (1 source) Pain in right hip; Translations: [PAIN IN RIGHT HIP] Onset: 11-05-2021 Episodic Unclassified (1 source) LOW BACK PAIN, UNSPECIFIED; Translations: [LOW BACK PAIN, UNSPECIFIED] Onset: 11-23-2021 Results Test Name Value Interpretation Reference Range Facility CT Abdomen/Pelvis w/o Nadine mays 05-20-2023 CT Abdomen/Pelvis w/o Contrast Exam Date/Time: 05/20/2023 09:32 EST Reason for Exam: Pain Report IMPRESSION: No acute process in the abdomen/pelvis. Diverticulosis without diverticulitis. Multiple areas of decreased attenuation within the liver, not well identified on this noncontrast study. Differential includes numerous benign and malignant etiologies. Recommend correlation with prior imaging, if available, otherwise consider dedicated follow-up CT or MRI of the liver with contrast. EXAMINATION: CT Abdomen/Pelvis w/o Contrast HISTORY: Left-sided abdominal pain. TECHNIQUE: Non-IV contrast imaging of the abdomen and pelvis was performed using standard technique, scanning from just above the dome of the diaphragm to the symphysis pubis. Unenhanced imaging is limited for the evaluation of some intra-abdominal and pelvic pathology. Unless otherwise stated, incidental findings in this report do not require further routine follow-up imaging. All CT scans at this facility use dose modulation, iterative reconstruction, and/or weight based dosing when appropriate to reduce radiation dose to as low as reasonably achievable. COMPARISON: None available at time of dictation. RESULT: Abdomen / Pelvis: Liver: Multiple ill-defined areas of decreased attenuation within the liver, not well evaluated on this noncontrast study. For example within the right hepatic lobe bilobed area measuring around 7.0 cm in total and rounded area of decreased attenuation in the left hepatic lobe measuring around 5.0 cm in total. Biliary: Gallbladder unremarkable. Pancreas: Unremarkable. Spleen: No splenomegaly. Adrenals: No mass. Report Kidneys: Punctate 1 to 2 mm calculus right lower pole. No hydronephrosis. No suspicious lesions in the unenhanced kidneys. GI Tract: No bowel dilation. Normal appendix. Diverticulosis especially of the left colon, without evidence for acute diverticulitis. Scattered colonic feces. Lymph Nodes: No lymphadenopathy. Mesentery/peritoneum/ retroperitoneum: No ascites or mass. Vasculature: Mild arterial atherosclerotic disease without aneurysm. Pelvis: No significant free fluid. Bladder grossly unremarkable. Small uterine calcification. Bones/Soft Tissues: No acute osseous findings. Degenerative changes. Underlying decreased bone mineral density. Lower thorax: Bibasilar scarring/atelectasis. Ordering Provider: Dharmesh Coughlin FINAL REPORT Dictated: 05/20/2023 10:02 am Zheng Pedroza MD Signed (Electronic Signature): 05/20/2023 10:02 am Signed by: Zheng Pedroza MD Transcribed by: KB Technologist: CHAD, Technical Comments Rectal Contrast Given? Yes Oral contrast amount in ml's: 0 Normal [facility] Consent for Treatmenton Consent for Treatment [id number]# 1.00TIFF Normal [facility] ED Note-Physicianon 05-20-19 ED Note-Physician [id number]#1 .00TIFF Normal [facility] Physician Orderon 05-20-2023 Physician Order [id number]# 1.00TIFF Normal [facility] RAD - MISCon 05-20-2023 RAD - MISC [id number]#1 .00TIFF Normal [facility] Dexa Scanson 03-04-2023 Dexa Scans [id number]#1 .00TIFF Normal [facility] RAD - Ultrasound Reporton RAD - Ultrasound Report [id number]#1 .00TIFF Normal [facility] Physician Orderon 02-18-2023 Physician Order [id number]#1 .00TIFF Normal [facility] .Interpretation:on 3 HCV Ab IA Ql Comment Invalid Interpretation Code [facility] Comment on above: Result Comment: Not infected with HCV unless early or acute infection is suspected (which may be delayed in an immunocompromised individual), or other evidence exists to indicate HCV infection. Performed at: [facility] [address], [place] [id number] PhD No Ornelas Performed By: #### 2 337285, [id number], 8376325, 0721998, 7843630, 7632613, 23962256, [id number] #### [facility] [address] [place] [address] HCV Antibody RFX to Quant PC Rodolfo 02-02-2023 HCV IgG IA Ql Non-Reactive Invalid Interpretation Code Non Reactive [facility] Comment on above: Result Comment: Perf ormed at: [facility] [address], [place] [id number] PhD No Ornelas Performed By: #### 2 991051, [id number], 1511480, 6237174, 4984628, 0326240, 33251883, [id number] #### [facility] [address] [place] [address] Patient Logson 02-01-2023 Patient Logs [id number]#1 .00TIFF Normal [facility] Auto Diffon 01-31-2023 Basophils/100 WBC (Bld) 1.1 % Normal 0.0-2.0 [facility] Comment on above: Order Comment: Order Added by Discern Expert. Performed By: #### 2 849810, 8543369750, 8579373, 0000279, 6219835, 8543027, 14462732, 1254095709 #### [facility] [address] [place] [address] Basophils/Leukocytes Auto (Bld) [Pure # fraction] 0.1 E9/L Normal 0.0-0.2 [facility] Comment on above: Order Comment: Order Added by Discern Expert. Performed By: #### 2 995996, 0407629197, 9690206, 2551847, 7227556, 7572187, 77664475, 1950699581 #### [facility] [address] [place] [address] Eosinophils/100 WBC (Bld) 3.3 % Normal 0.0-8.0 [facility] Comment on above: Order Comment: Order Added by Discern Expert. Performed By: #### 2 297219, 9174226834, 5665508, 4658358, 0213314, 8029910, 15794599, 3036439975 #### [facility] [address] [place] [address] Eosinophils/Leukocyte s Auto (Bld) [Pure # fraction] 0.2 E9/L Normal 0.0-0.5 [facility] Comment on above: Order Comment: Order Added by Discern Expert. Performed By: #### 2 899663, 4797750913, 2083449, 2099881, 6299480, 8087740, 06845255, 0629810399 #### [facility] [address] [place] [address] Lymphocytes/100 WBC (Bld) 33.7 % Normal 14.0-50.0 [facility] Comment on above: Order Comment: Order Added by Discern Expert. Performed By: #### 2 146588, 6473507640, 5597091, 0712661, 6911343, 4067155, 06830890, 4335417798 #### [facility] [address] [place] [address] Lymphocytes/Leukocyte s Auto (Bld) [Pure # fraction] 2.2 E9/L Normal 1.0-4.0 [facility] Comment on above: Order Comment: Order Added by Discern Expert. Performed By: #### 2 749767, 0190655783, 5073243, 2807777, 5553036, 9128592, 38334444, 2896439183 #### [facility] [address] [place] [address] Monocytes/100 WBC (Bld) 6.5 % Normal 4.0-14.0 [facility] Comment on above: Order Comment: Order Added by Discern Expert. Performed By: #### 2 709657, 3723729420, 1518610, 0857621, 0229063, 3273485, 90964688, 4628784336 #### [facility] [address] [place] [address] Monocytes/Leukocytes Auto (Bld) [Pure # fraction] 0.4 E9/L Normal 0.2-1.0 [facility] Comment on above: Order Comment: Order Added by Discern Expert. Performed By: #### 2 023617, 2408552407, 7324241, 6731823, 8227968, 3238294, 81571595, 8441308824 #### [facility] [address] [place] [address] Neutrophils/100 WBC (Bld) 55.4 % Normal 36.0-75.0 [facility] Comment on above: Order Comment: Order Added by Discern Expert. Performed By: #### 2 264390, 7222758280, 8176959, 0719046, 4308715, 7505426, 08086940, 5740072186 #### [facility] [address] [place] [address] Neutrophils/Leukocyte s Auto (Bld) [Pure # fraction] 3.7 E9/L Normal 2.0-7.5 [facility] Comment on above: Order Comment: Order Added by Discern Expert. Performed By: #### 2 477700, 6811867623, 6790234, 8362034, 3699498, 8297017, 42816967, 3306012739 #### [facility] [address] [place] [address] CBC w/ Auto Diffon 3 Erythrocyte distribution width (RBC) [Ratio] 13.1 % Normal 10.9-14.2 [facility] Comment on above: Performed By: #### 2 630234, 3732871390, 2949166, 0591597, 4182919, 6644951, 14313540, 5570889166 #### [facility] [address] [place] [address] Hematocrit (Bld) [Volume fraction] 37.5 % Normal 34.0-46.0 [facility] Comment on above: Performed By: #### 2 879120, 9054074056, 6276191, 0571904, 3338979, 9886173, 12675695, 9193497944 #### [facility] [address] [place] [address] Hemoglobin (Bld) [Mass/Vol] 12.3 g/dL Normal 12.0-16.0 [facility] Comment on above: Performed By: #### 2 641509, 5172264112, 3157430, 4213367, 3534654, 9456480, 42149518, 1726398903 #### [facility] [address] [place] [address]87 MCH (RBC) [Entitic mass] 29.4 pg Normal 27.0-34.0 [facility] Comment on above: Performed By: #### 2 689406, 1788771130, 9775097, 1450225, 1980913, 4991144, 79273790, 0208721799 #### [facility] [address] [place] [address] MCHC (RBC) [Mass/Vol] 32.9 g/dL Normal 31.4-36.0 [facility] Comment on above: Performed By: #### 2 425248, 3828132512, 6629058, 8054133, 6451861, 9881107, 30345370, 2063152156 #### [facility] [address] [place] [address] MCV (RBC) [Entitic vol] 89.5 fL Normal 80.0-100.0 [facility] Comment on above: Performed By: #### 2 886091, 1297132666, 3915849, 0871191, 4700061, 6325201, 98973269, 0461010775 #### [facility] [address] [place] [address] Platelet mean volume (Bld) [Entitic vol] 8.6 fL Normal 6.4-10.8 [facility] Comment on above: Performed By: #### 2 830888, 6282644953, 1085954, 8556838, 6253685, 1859036, 82909508, 9126959181 #### [facility] [address] [place] [address] Platelets (Bld) [#/Vol] 333.0 E9/L Normal 150.0-500.0 [facility] Comment on above: Performed By: #### 2 647118, 2289116259, 3153662, 9374788, 1626647, 1773000, 61342659, 5602824654 #### [facility] [address] [place] [address] RBC (Bld) [#/Vol] 4.2 E12/L Low 4.3-5.9 [facility] Comment on above: Performed By: #### 2 266608, 0089261537, 7773409, 5178154, 5809530, 4013703, 90020591, 0960895318 #### [facility] [address] [place] [address] WBC corrected for nucl RBC Auto (Bld) [#/Vol] 6.6 E9/L Normal 4.0-11.0 [facility] Comment on above: Performed By: #### 2 428016, 2005975615, 2119615, 3389580, 8860604, 2083393, 92040578, 8679480012 #### [facility] [address] [place] [address] CHEMISTRYOrdered By: SYSTEM SYSTEM on 01-31-2023 Albumin [...] 11 mmol/L Normal 6 - 16 mEq/L [facility] AST [Catalytic activity/Vol] 21 [iU]/d Normal [...] 78 mL/min/1.73 m2 Normal >=59mL/min/1 .73 m2 [facility] Chem S Comment on above: Interpretive Data: C hronic kidney disease could be indicated at eGFR's of less than 60 mL/min/1.73m2. Kidney failure is indicated at less than 15 mL/min/1.73m2. Globulin (S) [Mass/Vol] 3.8 g/dL Normal 1.4 - 4.0 gm/dL [facility] Glucose [Mass/Vol] 88 mg/dL Normal 55 - 199 mg/dL [facility] Comment on above: Interpretive Data: I [...] 2.33 m[IU]/L Normal 0.34 - 5.60 mcIU/mL [facility] Urea nitrogen [Mass/Vol] 15 mg/dL Normal 5 - 21 mg/dL [facility] Urea nitrogen/Creatinine [Mass ratio] 19 mg/mg Normal - [facility] Remisol CMPon 01-31-2023 Albumin [Mass/Vol] 4.0 g/dL Normal 3.3-5.0 [facility] Comment on above: Performed By: #### 2 192285, 7656933299, 1051975, 1815051, 4186309, 9788512, 81897178, 9090431028 #### [facility] [address] [place] [address] Albumin/Globulin (S) [Mass conc ratio] 1.0 Low 1.1-2.2 [facility] Comment on above: Performed By: #### 2 552116, 2678275278, 7875524, 6657118, 8070076, 7306601, 93420246, 7412006068 #### [facility] [address] [place] [address] ALP [Catalytic activity/Vol] 78 Int._Unit/L Normal 21-98 [facility] Comment on above: Performed By: #### 2 812276, 3481767472, 2018196, 5879418, 3460442, 2758757, 67716422, 3047387358 #### [facility] [address] [place] [address] ALT No additional P-5'-P [Catalytic activity/Vol] 14 Int._Unit/L Normal 6-46 [facility] Comment on above: Performed By: #### 2 765777, 7405421507, 6281686, 5361685, 9646789, 8094929, 89632108, 9370004315 #### [facility] [address] [place] [address] Anion gap [Moles/Vol] 11 mmol/L Normal 6-16 [facility] Comment on above: Performed By: #### 2 997794, 2442551710, 7699910, 9077168, 7067264, 4142703, 14569625, 7624845836 #### [facility] [address] [place] [address] AST [Catalytic activity/Vol] 21 Int._Unit/L Normal 5-43 [facility] Comment on above: Performed By: #### 2 953366, 9271501012, 0577732, 9434412, 7202715, 1037468, 39355542, 9710101713 #### [facility] [address] [place] [address] Bilirubin [Mass/Vol] 0.8 mg/dL Normal 0.0-1.1 [facility] Comment on above: Performed By: #### 2 434257, 7820483395, 5538368, 4250271, 6342335, 7103316, 43249603, 7793865201 #### [facility] [address] [place] [address] Calcium [Mass/Vol] 9.6 mg/dL Normal 8.9-11.1 [facility] Comment on above: Performed By: #### 2 123254, 8961189599, 5633816, 2062493, 3315980, 4816317, 07656470, 3840234521 #### [facility] [address] [place] [address] Chloride [Moles/Vol] 107 mmol/L Normal 101-111 [facility] Comment on above: Performed By: #### 2 502282, 6861427574, 4581881, 2891826, 7100004, 0300590, 60906093, 6825572642 #### [facility] [address] [place] [address] CO2 [Moles/Vol] 26 mmol/L Normal 21-31 [facility] Comment on above: Performed By: #### 2 053399, 8634413687, 7227311, 6591257, 8601658, 6781309, 36148566, 7206805764 #### [facility] [address] [place] [address] Creatinine [Mass/Vol] 0.8 mg/dL Normal 0.5-1.3 [facility] Comment on above: Performed By: #### 2 156085, 6194948230, 4318654, 0395654, 4735785, 3848718, 14922711, 6529125912 #### [facility] [address] [place] [address] Globulin (S) [Mass/Vol] 3.8 g/dL Normal 1.4-4.0 [facility] Comment on above: Performed By: #### 2 989945, 9144922609, 5407105, 9870650, 1873132, 0764898, 52369618, 6556234826 #### [facility] [address] [place] [address] Glucose [Mass/Vol] 88 mg/dL Normal 55-199 [facility] Comment on above: Result Comment: If t his glucose result represents a fasting glucose, interpretation should refer to the following reference range: 55-99 mg/dL Performed By: #### 2 618167, 4751338318, 6286975, 8377854, 0089069, 3505910, 31365331, 7145228086 #### [facility] [address] [place] [address] Potassium [Moles/Vol] 4.2 mmol/L Normal 3.5-5.3 [facility] Comment on above: Performed By: #### 2 451568, 6679704655, 0438995, 5403007, 4144731, 8147190, 12181001, 8318359246 #### [facility] [address] [place] [address] Protein [Mass/Vol] 7.8 g/dL Normal 6.0-7.8 [facility] Comment on above: Performed By: #### 2 276934, 4473009621, 2765663, 2650103, 1015532, 4813271, 40614844, 8286673235 #### [facility] [address] [place] [address] Sodium [Moles/Vol] 140 mmol/L Normal 135-145 [facility] Comment on above: Performed By: #### 2 929934, 1696950946, 2605709, 7623995, 1834508, 6186338, 47946845, 7412156959 #### [facility] [address] [place] [address] Urea nitrogen [Mass/Vol] 15 mg/dL Normal 5-21 [facility] Comment on above: Performed By: #### 2 876303, 4612846581, 1868935, 2537465, 3251756, 2865652, 77681712, 8501668616 #### [facility] [address] [place] [address] Urea nitrogen/Creatinine [Mass ratio] 19 No Units Normal 10-20 [facility] Comment on above: Performed By: #### 2 455640, 7371556534, 5555205, 2894747, 7088901, 4531700, 71947331, 4569847160 #### [facility] [address] [place] [address] HEMATOLOGYOrdered By: SYSTEM SYSTEM on 01-31-2023 Basophils/100 WBC (Bld) 1.1 % Normal 0.0 - 2.0 % [facility] Basophils/Leukocytes Auto (Bld) [Pure # fraction] 0.1 E9/L Normal 0.0 - 0.2 E9/L [facility] Eosinophils/100 WBC (Bld) 3.3 % Normal 0.0 - 8.0 % [facility] Eosinophils/Leukocyte s Auto (Bld) [Pure # fraction] 0.2 E9/L Normal 0.0 - 0.5 E9/L [facility] Lymphocytes/100 WBC (Bld) 33.7 % Normal 14.0 - 50.0 % [facility] Lymphocytes/Leukocyte s Auto (Bld) [Pure # fraction] 2.2 E9/L Normal 1.0 - 4.0 E9/L [facility] Monocytes/100 WBC (Bld) 6.5 % Normal 4.0 - 14.0 % [facility] Monocytes/Leukocytes Auto (Bld) [Pure # fraction] 0.4 E9/L Normal 0.2 - 1.0 E9/L [facility] Neutrophils/100 WBC (Bld) 55.4 % Normal 36.0 - 75.0 % [facility] Neutrophils/Leukocyte s Auto (Bld) [Pure # fraction] 3.7 E9/L Normal 2.0 - 7.5 E9/L [facility] HEMATOLOGYOrdered By: Edie Holder on 01-31-2023 Erythrocyte distribution width (RBC) [Ratio] 13.1 % Normal 10.9 - 14.2 % [facility] Hematocrit (Bld) [Volume fraction] 37.5 % Normal 34.0 - 46.0 % [facility] Hemoglobin (Bld) [Mass/Vol] 12.3 g/dL Normal 12.0 - 16.0 gm/dL [facility] MCH (RBC) [Entitic mass] 29.4 pg Normal 27.0 - 34.0 pg [facility] MCHC (RBC) [Mass/Vol] 32.9 g/dL Normal 31.4 - 36.0 gm/dL [facility] MCV (RBC) [Entitic vol] 89.5 fL Normal 80.0 - 100.0 fL [facility] Platelet mean volume (Bld) [Entitic vol] 8.6 fL Normal 6.4 - 10.8 fL [facility] Platelets (Bld) [#/Vol] 333.0 E9/L Normal 150.0 - 500.0 E9/L [facility] RBC (Bld) [#/Vol] 4.2 E12/L Low 4.3 - 5.9 E12/L [facility] WBC corrected for nucl RBC Auto (Bld) [#/Vol] 6.6 E9/L Normal 4.0 - 11.0 E9/L [facility] Lipid Panelon 01-31-2023 Cholesterol [Mass/Vol] 268 mg/dL High 120-200 [facility] Comment on above: Performed By: #### 2 992626, 8161980833, 2978864, 3949536, 7700310, 5940072, 61413038, 5930107533 #### [facility] [address] [place] [address] Cholesterol in HDL [Mass/Vol] 69 mg/dL Invalid Interpretation Code [facility] Comment on above: Result Comment: HDL > or equal to 60 mg/dL: Low cardiovascular risk HDL < 40 mg/dL : High cardiovascular risk Performed By: #### 2 496422, 0345218748, 4880221, 9520964, 7058106, 4608396, 00977336, 2352612746 #### [facility] [address] [place] [address] Cholesterol in LDL [Mass/Vol] 162 mg/dL High <=129 [facility] Comment on above: Performed By: #### 2 446144, 4074476183, 1671125, 1550993, 6054813, 7965821, 81899986, 2517198916 #### [facility] [address] [place] [address] Cholesterol in VLDL [Mass/Vol] 26 mg/dL Normal 7-40 [facility] Comment on above: Performed By: #### 2 441160, 2842458316, 7090713, 2926048, 2076565, 5233525, 80826769, 8403974480 #### [facility] [address] [place] [address] Triglyceride [Mass/Vol] 132 mg/dL Normal <=149 [facility] Comment on above: Performed By: #### 2 008186, 0975073094, 8708754, 8355137, 6182458, 1031263, 70870254, 6668791424 #### [facility] [address] [place] [address] Nurse Consultation Noteon Nurse Consultation Note Reason [...] OTC, 20 mg, Self Directed Allergies Poison Liang No Known Medication Allergies Normal [facility] TSHon 01-31-2023 TSH Qn 2.33 m[IU]/L Normal 0.34-5.60 [facility] Comment on above: Performed By: #### 2 735781, 3191215719, 5782329, 8331915, 1460565, 0463334, 27335599, 0652904331 #### [facility] [address] [place] [address] eGFRon 01-31-2023 GFR/1.73 sq M.predicted among non-blacks MDRD (S/P/Bld) [Vol rate/Area] 78 mL/min/1.73 m2 Normal >=59 [facility] Comment on above: Order Comment: Order added by Discern Expert. Result Comment: Group Work Program Aide giselle kidney disease could be indicated at eGFR's of less than 60 mL/min/1.73m2. Kidney failure is indicated at less than 15 mL/min/1.73m2. Performed By: #### 2 983424, 1447552363, 7391401, 1462975, 9528230, 7405341, 98812749, 1175777034 #### [facility] [address] [place] [address] Yobany 08-19-2022 L - -------- Specimen: [id number] Received: 08/19/22 Status: LUZMA Avtar Num: [id number] Spec Type: Surgical Subm Dr: Franky Martin MD Tissues: A Bone Fragments - Other than Path Fracture (LT NASAL BONE FRAGMENTS/LT L) Procedures: JANIE, Gross/Micro L3, Decalcification -------- Age/ Patient Sex Location Account Attending Physician -------- Halie Martin 72/Jesse REYEZ [id number] Franky Martin MD -------- SPEC NUM: [id number] RECD: 08/19/22 STATUS: LUZMA NOVA NUM: [id number] FREDY: 08/19/[address] [facility] [address]: Franky Martin MD ENTERED: 08/19/22-1408 [facility] DR: SPEC TYPE: Surgical DEPT: S ORDERED: HE, Gross/Micro L3, Decalcification ORDERED: HE, Gross/Micro L3, Decalcification Pathological Diagnosis Bone, left eye, dacryocystorhinostomy : - Fragments of benign bone and left [...] support the above pathologic diagnosis. CPT Codes 08510, 89200 -------- -------- Specimen: [id number] Received: 08/19/22 Status: HERBERTHAlba Nova Num: [id number] Spec Type: Surgical Subm Dr: Franky Martin MD Tissues: A Bone Fragments - Other than Path Fracture (LT NASAL BONE FRAGMENTS/LT L) Procedures: HE, Gross/Micro L3, Decalcification -------- Patient: Halie Martin [id number] (Continued) -------- Signed (signature on file) Desmond Cornelius MD 08/24/22 1516 [facility] MG MAMM SCREEN 3D JACEK CADon 02-09-2022 MG MAMM SCREEN 3D JACEK CAD Patient: HALIE MARTIN. Exam Date: 02/09/2022 : 1950 Gender:F Ordering : DR DARIA VAZQUEZ . Admission #: [id number] Family : Order #: [id number] CLICK HERE TO VIEW EXAM RADIOLOGY REPORT PROCEDURE: MAMMOGRAM SCREENING 3D BILATERAL CAD COMPARISON: MG MAMM SCREEN JACEK W CAD, 04/11/2020. MAMMO JACEK SCREEN, 01/17/2019. INDICATIONS: Screening mammography Calculator Name NCI Breast Cancer Risk Assessment Tool 5 Year Breast Cancer Risk 1.60% Lifetime Breast Cancer Risk 4.10% Personal Breast Cancer No Personal Ovarian Cancer No Treatments None Family Cancers None LOCATION: [facility] BREAST COMPOSITION: Scattered areas fibroglandular density. FINDINGS: [...] Henderson M.D. on 02/10/2022 at 14:54 Normal [facility] MRI LSPINE WO CONon 11-24-19 MRI LSPINE WO CON EXAMINATION: MRI LSPINE WO CON HISTORY: Low back pain , [...] by: REINIER HENDERSON Date: 2021-11-23 18:01 Normal [facility] XR LSPINE MIN 4 VIEWSon 10-13 [...] REINIER HENDERSON Date: 2021-11-05 10:18 Normal [facility] XR HIP RT 2 3V WO PELVISon [...] MILEY ANGEL Date: 2021-11-04 15:38 Normal [facility] SARS-CoV2 ANTIBODIES, NUCLEO CAPSIDon 02-27-2021 SARS-CoV-2 (COVID-19) RNA NARINDER+probe Ql (Unsp spec) Positive Normal Negative [facility] Comment on above: Result Comment: Resu lts [...] antibodies specific to the viral spike protein. [employer] offers two test codes that detect viral spike-specific antibodies: 281343 SARS-CoV-2 Semi-Quantitative Total Antibody, Cesar and 319891 SARS-CoV-2 Antibody, IgG, Cesar (Qualitative). Positive results with this SARS-CoV-2 Antibodies, Nucleocapsid assay suggest recent or previous natural infection with SARS-CoV-2. Performed By: #### C VDABS #### [facility] [address], [place] [address] Dr. Donny Ignacio CBC AUTO DIFFon 02-25-2021 BASO # 0.1 103/ul Normal 0.0-0.1 [facility] Comment on above: Performed By: #### C BC #### [facility] [address] [place], [place] [address] Dr. Donny Ignacio Basophils/100 WBC (Bld) 1.1 % Normal 0.2-2.0 [facility] Comment on above: Performed By: #### C BC #### [facility] [address] [place] [address] Dr. Donny Ignacio EO # 0.3 103/ul Normal 0.0-0.7 [facility] Comment on above: Performed By: #### C BC #### [facility] [address] [place] [address] Dr. Donny Ignacio Eosinophils/100 WBC (Bld) 3.8 % Normal 0.9-7.0 [facility] Comment on above: Performed By: #### C BC #### [facility] [address] [place] [address] Dr. Donny Ignacio Erythrocyte distribution width (RBC) [Ratio] 12.5 % Normal 11.0-15.0 [facility] Comment on above: Performed By: #### C BC #### [facility] [address] [place] [address] Dr. Donny Ignacio Hematocrit (Bld) [Volume fraction] 37.9 % Normal 36.0-48.0 [facility] Comment on above: Performed By: #### C BC #### [facility] [address] [place] [address] Dr. Donny Ignacio Hemoglobin (Bld) [Mass/Vol] 12.5 g/dL Normal 12.0-16.0 [facility] Comment on above: Performed By: #### C BC #### [facility] [address] [place] [address] Dr. Donny Ignacio IG # 0.02 10e3/ul Normal 0.00-0.03 [facility] Comment on above: Performed By: #### C BC #### [facility] [address] [place] [address] Dr. Donny Ignacio IG % 0.3 % Normal 0.0-0.5 [facility] Comment on above: Performed By: #### C BC #### [facility] [address] [place] [address] Dr. Donny Ignacio LYMPH # 2.3 103/ul Normal 1.2-3.8 [facility] Comment on above: Performed By: #### C BC #### [facility] [address] [place] [address] Dr. Donny Ignacio Lymphocytes/100 WBC (Bld) 35.1 % Normal 20.5-60.0 [facility] Comment on above: Performed By: #### C BC #### [facility] [address] [place] [address] Dr. Donny Ignacio MANUAL DIFF REQ NO Normal [facility] Comment on above: Performed By: #### C BC #### [facility] [address] [place] [address] Dr. Donny Ignacio MCH (RBC) [Entitic mass] 30.8 pg Normal 26.7-34.0 [facility] Comment on above: Performed By: #### C BC #### [facility] [address] [place] [address] Dr. Donny Ignacio MCHC (RBC) [Mass/Vol] 33.0 g/dL Normal 29.9-35.2 [facility] Comment on above: Performed By: #### C BC #### [facility] [address] [place] [address] Dr. Donny Ignacio MCV (RBC) [Entitic vol] 93.3 fL Normal 81.0-99.0 [facility] Comment on above: Performed By: #### C BC #### [facility] [address] [place] [address] Dr. Donny Ignacio MONO # 0.5 103/ul Normal 0.3-0.8 [facility] Comment on above: Performed By: #### C BC #### [facility] [address] [place] [address] Dr. Donny Ignacio Monocytes/100 WBC (Bld) 7.0 % Normal 1.7-12.0 [facility] Comment on above: Performed By: #### C BC #### [facility] [address] [place] [address] Dr. Donny Ignacio NEUT # 3.5 103/ul Normal 1.4-6.5 [facility] Comment on above: Performed By: #### C BC #### [facility] [address] [place] [address] Dr. Donny Ignacio Neutrophils/100 WBC (Bld) 52.7 % Normal 43.0-75.0 [facility] Comment on above: Performed By: #### C BC #### [facility] [address] [place] [address] [address] Donny Ignacio Platelet mean volume (Bld) [Entitic vol] 10.1 fL Normal 9.5-13.5 [facility] Comment on above: Performed By: #### C BC #### [facility] [address] [place] [address] [address] Donny Ignacio PLT 318 103/ul Normal 150-450 [facility] Comment on above: Performed By: #### C BC #### [facility] [address] [place] [address] Dr. Donny Ignacio RBC 4.06 106/ul Critically low 4.20-5.40 [facility] Comment on above: Performed By: #### C BC #### [facility] [address] [place] [address] Dr. Donny Ignacio WBC 6.6 103/ul Normal 4.0-11.0 [facility] Comment on above: Performed By: #### C BC #### [facility] [address] [place] [address] Dr. Donny Ignacio CRPon 02-25-2021 CRP [Mass/Vol] mg/L Normal <=1.0 [facility] Comment on above: Performed By: #### C RP, TSH, LIPID, CMP #### [facility] [address] [place] [address] Dr. Donny Ignacio LIPID PROFILEon 02-25-2021 CHOL-HDL RATIO NORM SEE BELOW Normal [facility] Comment on above: Result Comment: 3.3 - 4.4 LOW RISK 4.4 - 7.1 AVERAGE RISK 7.1 - 11.0 MODERATE RISK >11.0 HIGH RISK Performed By: #### C RP, TSH, LIPID, CMP #### [facility] [address] [place] [address] Dr. Donny Ignacio Cholesterol [Mass/Vol] 246 mg/dL Critically high <=200 [facility] Comment on above: Performed By: #### C RP, TSH, LIPID, CMP #### [facility] [address] [place] [address] [address] Donny Ignacio Cholesterol in HDL [Mass/Vol] 68 mg/dL Normal [facility] Comment on above: Performed By: #### C RP, TSH, LIPID, CMP #### [facility] [address] [address] [address] Donny Ignacio Cholesterol in LDL [Mass/Vol] 153.0 mg/dL Normal [facility] Comment on above: Performed By: #### C RP, TSH, LIPID, CMP #### [facility] [address] [place] [address] Dr. Donny Ignacio Cholesterol.total/Cho lesterol in HDL [Mass ratio] 3.6 {ratio} Normal [facility] Comment on above: Performed By: #### C RP, TSH, LIPID, CMP #### [facility] [address] [place] [address] [address] Donny Ignacio HDL NORMAL > or = 60 mg/dl - LO W CARDIOVASCULAR RISK <40 mg/dl - HIGH CARDIOVASCULAR RISK Normal [facility] Comment on above: Performed By: #### C RP, TSH, LIPID, CMP #### [facility] [address] [place] [address] [address] Donny Ignacio LDL CALC NORMAL SEE BELOW Normal [facility] Comment on above: Result Comment: <100 mg/dl OPTIMAL 100 - 129 mg/dl NEAR OR ABOVE OPTIMAL 130 - 159 mg/dl BORDERLINE HIGH 160 - 189 mg/dl HIGH >190 mg/dl VERY HIGH Performed By: #### C RP, TSH, LIPID, CMP #### [facility] [address] [place] [address] [address] Donny Ignacio Triglyceride [Mass/Vol] 125 mg/dL Normal <=150 [facility] Comment on above: Performed By: #### C RP, TSH, LIPID, CMP #### [facility] [address] [address] [address] Donny Ignacio VLDL CALC 25.0 mg/dL Normal [facility] Comment on above: Performed By: #### C RP, TSH, LIPID, CMP #### [facility] [address] [address] [address] Donny Ignacio PROF 14(COMP METB)on 021 Albumin [Mass/Vol] 3.5 g/dL Normal 3.5-5.0 [facility] Comment on above: Performed By: #### C RP, TSH, LIPID, CMP #### [facility] [address] [place] [address] Dr. Donny Ignacio Albumin/Globulin [Mass ratio] 1.0 {ratio} Normal [facility] Comment on above: Performed By: #### C RP, TSH, LIPID, CMP #### [facility] [address] [place] [address] Dr. Donny Ignacio ALP [Catalytic activity/Vol] 81 U/L Normal 38-126 [facility] Comment on above: Performed By: #### C RP, TSH, LIPID, CMP #### [facility] [address] [place] [address] Dr. Donny Ignacio ALT [Catalytic activity/Vol] 22 U/L Normal 9-52 [facility] Comment on above: Performed By: #### C RP, TSH, LIPID, CMP #### [facility] [address] [address] [address] Donny Ignacio Anion gap [Moles/Vol] 12.5 mmol/L Normal [facility] Comment on above: Performed By: #### C RP, TSH, LIPID, CMP #### [facility] [address] [place] [address] [address] Donny Ignacio AST [Catalytic activity/Vol] 20 U/L Normal 14-36 [facility] Comment on above: Performed By: #### C RP, TSH, LIPID, CMP #### [facility] [address] [place] [address] Dr. Donny Ignacio Bilirubin [Mass/Vol] 0.4 mg/dL Normal 0.2-1.3 [facility] Comment on above: Performed By: #### C RP, TSH, LIPID, CMP #### [facility] [address] [place] [address] [address] Donny Ignacio Calcium [Mass/Vol] 9.3 mg/dL Normal 8.4-10.2 [facility] Comment on above: Performed By: #### C RP, TSH, LIPID, CMP #### [facility] [address] [place] [address] Dr. Donny Ignacio Chloride [Moles/Vol] 105 mmol/L Normal 98-107 [facility] Comment on above: Performed By: #### C RP, TSH, LIPID, CMP #### [facility] [address] [place] [address] Dr. Donny Ignacio CO2 [Moles/Vol] 27.5 mmol/L Normal 22.0-30.0 [facility] Comment on above: Performed By: #### C RP, TSH, LIPID, CMP #### [facility] [address] [place] [address] Dr. Donny Ignacio Creatinine [Mass/Vol] 0.67 mg/dL Normal 0.52-1.04 [facility] Comment on above: Performed By: #### C RP, TSH, LIPID, CMP #### [facility] [address] [place] [address] Dr. Donny Ignacio EGFR-AF SWEDISH >60 Normal >=60 [facility] Comment on above: Performed By: #### C RP, TSH, LIPID, CMP #### [facility] [address] [place] [address] Dr. Donny Ignacio EGFR-NON AF SWEDISH >60 Normal >=60 [facility] Comment on above: Performed By: #### C RP, TSH, LIPID, CMP #### [facility] [address] [place] [address] Dr. Donny Ignacio Globulin (S) [Mass/Vol] 3.6 g/dL Normal [facility] Comment on above: Performed By: #### C RP, TSH, LIPID, CMP #### [facility] [address] [place] [address] Dr. Donny Ignacio Glucose [Mass/Vol] 91 mg/dL Normal 74-106 [facility] Comment on above: Performed By: #### C RP, TSH, LIPID, CMP #### [facility] [address] [place] [address] Dr. Donny Ignacio Potassium [Moles/Vol] 4.0 mmol/L Normal 3.4-5.0 [facility] Comment on above: Performed By: #### C RP, TSH, LIPID, CMP #### [facility] [address] [place] [address] Dr. Donny Ignacio Protein [Mass/Vol] 7.1 g/dL Normal 6.1-8.2 [facility] Comment on above: Performed By: #### C RP, TSH, LIPID, CMP #### [facility] [address] [place] [address] Dr. Donny Ignacio Sodium [Moles/Vol] 141 mmol/L Normal 137-145 [facility] Comment on above: Performed By: #### C RP, TSH, LIPID, CMP #### [facility] [address] [place] [address] Dr. Donny Ignacio Urea nitrogen [Mass/Vol] 15.0 mg/dL Normal 7.0-17.0 [facility] Comment on above: Performed By: #### C RP, TSH, LIPID, CMP #### [facility] [address] [place] [address] Dr. Donny Ignacio Urea nitrogen/Creatinine [Mass ratio] 22.4 mg/mg Normal [facility] Comment on above: Performed By: #### C RP, TSH, LIPID, CMP #### [facility] [address] [place] [address] Dr. Donny Ignacio TSHon 02-25-2021 TSH 2.024 uIU/mL Normal 0.470-4.680 [facility] Comment on above: Performed By: #### C RP, TSH, LIPID, CMP #### [facility] [address] [place] [address] Dr. Donny Ignacio TSH RANGE SEE BELOW Normal [facility] Comment on above: Result Comment: <0.3 4 UIU/ml HYPERTHYROID 0.34-5.60 UIU/ml EUTHYROID >5.60 UIU/ml HYPOTHYROID Performed By: #### C RP, TSH, LIPID, CMP #### [facility] [address] [place] [address] Dr. Donny Calloway 01-18-2019 CNOV Office Visit (DERMCC ) HALIE MARTIN ([id number]) 1950 F Date Time Provider Department 01/18/19 10:45 AM MIKO MRATINEZ DERMOC During your visit today, we recorded the [...] 15 MG CAP) Take one(1) capsule daily. methylprednisolone(ME DROL (VICTOR HUGO) 4 MG TABS IN A [...] Past Histories independently gathered by the clinical support specialist and the remaining scribed note [...] by MIKO MARTINEZ MD on 01/18/19 Normal [facility] PROGRESSon 01-18-2019 PROGRESS HNO ID: [id number] Author: Miko Martinez Service: ? Author Type: [...] 15 MG CAP) Take one(1) capsule daily. methylprednisolone(ME DROL (VICTOR HUGO) 4 MG TABS IN A [...] Past Histories independently gathered by the clinical support specialist and the remaining scribed note accurately describes my personal service to the patient. Miko Martinez MD [facility] Vital Signs Date Time Vital Sign Value Performing Clinician Faci adilene 10-08-2019 16:12-0400 BMI (Body Mass Index) 29.23 kg/m2 Byron Syed HS[facility]Mkvddkkbpuhjwo[facility] Work Phone: 10-08-2019 16:12-0400 Body weight 74.84 kg Byron Syed -Otolaryngolog y-S [employer] Work Phone: 10-08-2019 16:12-0400 BSA (Body Surface Area) 1.78 m2 Byron Syed YN-Wmrkfzaesvaufr-B [employer] Work Phone: 10-08-2019 16:12-0400 Height 160.02 cm Byron Syed -Otolaryngolog y-S [employer] Work Phone: Encounters Encounter Date Encounter Type Care Provider Facility Start: 01-29-2025 ambulatory WOOD TREATING INSPECTOR Chiara L Charu Facil ity:[facility] Marlene Start: 02-02-2024 ambulatory WOOD TREATING INSPECTOR Chiara L Charu Facil ity:[facility] Delevan Start: 01-31-2024 ambulatory WOOD TREATING INSPECTOR Chiara L Charu Facil ity:[facility] Delevan Start: 01-30-2024 End: 01-30-2024 ambulatory WOOD TREATING INSPECTOR [facility] L [facility] Start: 11-23-2023 End: 11-23-2023 ambulatory BYRON SYED [facility] Ambulatory Start: 05-20-2023 End: 05-20-2023 ambulatory Dharmesh Coughlin Facility:[facility] Start: 01-31-2023 End: 01-31-2023 Lab Drop off Chiara Box [facility] Start: 01-31-2023 End: 01-31-2023 ambulatory WOOD TREATING INSPECTOR Chiara L Charu Facility:[facility] Start: 08-19-2022 End: 08-19-2022 ambulatory Franky Martin Facility:[facility] Start: 02-09-2022 End: 02-10-[address] DARIA VAZQUEZ Facility:[facility] Start: 11-23-2021 End: 11-24-[address] DARIA VAZQUEZ Facility:[facility] Start: 11-04-2021 End: 11-05-[address] DARIA VAZQUEZ Facility:[facility] Start: 02-25-2021 End: 02-26-[address] DARIA VAZQUEZ Facility:[facility] Procedures Date Procedure Procedure Detail Performing Clinician Start: 10-08-2019 Follow-up visit Arthroscopy of knee Chiara Hussein wab Comment on above: right meniscus 2014 Cataract (disorder) Chiara Jovita wab Repair of shoulder Chiara Schw ab Comment on above: R shoulder, calcium deposit removal Surgery (qualifier value) Yareli bobby Charu Comment on above: back 2000 Payers Date Payer Category Payer Self-pay 2022 Private Health Insurance [id number] 1960 Medicare [id number] 1960 Medicare [id number] 1950 Unknown [id number] 2.16.84 [id number] 1950 Unknown [id number] 2.16.84 [id number] 1950 Unknown [id number] 2.16.84 [id number] 1950 Unknown [id number] 2.16.84 [id number] 1950 Unknown [id number] 2.16.8 [id number] 1950 Unknown [id number] 2.16.8 [id number] 1950 Unknown [id number] 2.16.8 [id number] 1950 Unknown [id number] 2.16.8 [id number] 1950 Unknown [id number] 2.16.8 [id number] 1950 Unknown [id number] 2.16.8 [id number] 1950 Unknown [id number] 2.16.8 [id number] 1950 Unknown [id number] 2.16.8 [id number] Unknown [id number] 2.16.8 [id number] Social History Date Type Detail Facility Start: 01-27-2023 Tobacco smoking status Never smoked tobacco (finding) [facility] Comment on above: denies Tobacco smoking status Never [facility] Comment on above: denies Sex Assigned At Female [facility] NEGATED: [facility] Work Phone: Functional Status Date Assessment Result Facility NEGATED: Highlighted row Functional performance Functional status health issues are not documented Disease SN-Hiwqjcpuepxbnw-T [facility] Work Phone: Mental Status Date Assessment Result Facility NEGATED: Highlighted row Cognitive function [Interpretation] Cognitive status health issues are not documented Disease CP-Uwcfcbclxltflj-Y [facility] Work Phone: Clinical Note 01-30-2024 Note Date & Type Note Facility 01-30-2024 Note Patient Education Emergency Medicine Heart Attack A heart attack occurs when blood and oxygen supply to the heart is cut off. A heart attack can cause damage to the heart that cannot be fixed. A heart attack is also called a myocardial infarction, or NJ. If you think you are having a heart attack, do not wait to see if the symptoms will go away. Get medical help right away. What are the causes? This condition may be caused by: ??? A fatty substance (plaque) in the blood vessels (arteries). This can block the flow of blood to the heart. ??? A blood clot in the blood vessels that go to the heart. The blood clot blocks blood flow. ??? An abnormal heartbeat. ??? Some diseases, such as problems in red blood cells (anemia)orproblems in breathing (respiratory failure). ??? Tightening (spasm) of a blood vessel that cuts off blood to the heart. ??? A tear in a blood vessel of the heart. Other causes may include: ??? Using drugs such as cocaine or methamphetamine. ??? Low blood pressure. What increases the risk? Aging. The risk gets higher as you get older. ??? Having a personal or family history of chest pain, heart attack, stroke, or narrowing of the arteries in the legs, arms, head, or stomach (peripheral vascular disease). ??? Having taken chemotherapy or immune-suppressing medicines. ??? Being male. ??? Being overweight or obese. ??? Having any of these conditions: ? High blood pressure. ? High cholesterol. ? Diabetes. ??? Making lifestyle choices such as: ? Drinking too much alcohol. ? Not getting regular exercise. ? Smoking. What are the signs or symptoms? Chest pain. It may feel like: ? Crushing or squeezing. ? Tightness, pressure, fullness, or heaviness. ??? Pain in the arm, neck, jaw, back, or upper body. ??? Heartburn. ??? Upset stomach (indigestion). ??? Shortness of breath. ??? Feeling like you may vomit (nauseous). ??? Cold sweats. ??? Sudden light-headedness, dizziness, or passing out. ??? Feeling tired. How is this treated? A heart attack must be treated as soon as possible. Treatment may include: ??? Medicines to: ? Break up or dissolve blood clots. ? Thin your blood and help prevent blood clots. ? Treat blood pressure. ? Improve blood flow to the heart. ? Reduce pain. ? Reduce cholesterol. ??? Procedures to widen a blocked artery and keep it open. ??? Open heart surgery. ??? Making your heart strong again (cardiac rehabilitation) through exercise, education, and counseling. Follow these instructions at home: Medicines ??? Take dqxc-qab-sulvndm and prescription medicines only as told by your doctor. ??? Do not take these medicines unless your doctor says it is okay: ? NSAIDs, such as ibuprofen, naproxen, or celecoxib. ? Any vitamins or supplements. ? Hormone replacement therapy that has estrogen with or without progestin. ??? If you are taking blood thinners: ? Talk with your doctor before taking any medicines that have aspirin or NSAIDs, such as ibuprofen. ? Take medicines exactly as told. Take them at the same time each day. ? Avoid doing things that could hurt or bruise you. Take action to prevent falls. ? Wear an alert bracelet or carry a card that shows you are taking blood thinners. Lifestyle ??? Do not smoke or use any products that contain nicotine or tobacco. If you need help quitting, ask your doctor. ??? Avoid secondhand smoke. ??? Exercise regularly. Ask your doctor about a cardiac rehab program. ??? Eat heart-healthy foods. Your doctor will tell you what foods to eat. ??? Stay at a healthy weight. ??? Learn ways to lower your stress level. ??? Do not use illegal drugs. Alcohol use ??? Do not drink alcohol if: ? Your doctor tells you not to drink. ? You are , may be , or are planning to become . ??? If you drink alcohol: ? Limit how much you have to: ? 0?1 drink a day for women. ? 0?2 drinks a day for men. ? Know how much alcohol is in your drink. In the [place] one drink equals one 12 oz bottle of beer (355 mL), one 5 oz glass of wine (148 mL), or one 1? oz glass of hard liquor (44 mL). General instructions ??? Work with your doctor to treat other problems you may have, such as diabetes or high blood pressure. ??? Get screened for depression. Get treatment if needed. ??? Keep your vaccines up to date. Get the flu shot (influenza vaccine) every year. ??? Keep all follow-up visits. Contact a doctor if: ??? You feel very sad. ??? You have trouble doing your daily activities. ??? You get light-headed or dizzy. Get help right away if: ??? You have sudden, unexplained discomfort in your chest, arms, back, neck, jaw, or upper body. ??? You have shortness of breath. ??? You have sudden sweating or clammy skin. ??? You feel like you may vomit or you vomit. ??? You fe (more content not included)... [facility] Evaluation + Plan note Note Date & Type Note Facility Evaluation + Plan note Future Appointments Appointment Date:01/30/2024 11:00:00 AM Scheduled Provider: Location:[facility] Appointment Type:FM Medicare Wellness Subsequent Diagnostic Tests PendingHCV Antibody RFX to Quant PCR 01/31/23 [facility] Hospital course Narrative Note Date & Type Note Facility Hospital course Narrative No data available for this section [facility] Hospital Discharge instructions Note Date & Type Note Facility Hospital Discharge instructions No data available for this section [facility] Progress note Note Date & Type Note Facility Progress note No data available for this section [facility] Summary Purpose Family History No Family History Records FoundNo Family History Records FoundNo Family History Records FoundNo Family History Records Found No data available for this section No Family History Records FoundNo Family History Records Found Advance Directives No Advanced Directives Records FoundNo Advanced Directives Records FoundNo Advanced Directives Records FoundNo Advanced Directives Records FoundNo Advanced Directives Records FoundNo Advanced Directives Records Found Additional Source Comments INFORMATION SOURCE (unrecogn ized section and content) DATE CREATED AUTHOR 01/18/2019 [facility] DATE CREATED AUTHOR AUTHOR'S ORGANIZ ATION 10/10/2019 [employer] DATE CREATED AUTHOR AUTHOR'S ORGANIZ ATION 02/13/2022 [facility] DATE CREATED AUTHOR AUTHOR'S ORGANIZ ATION 09/02/2022 [facility] DATE CREATED AUTHOR AUTHOR'S ORGANIZ ATION 11/25/2023 [facility] DATE CREATED AUTHOR AUTHOR'S ORGANIZ ATION 01/31/2024 [facility] Patient Care team informatio n (unrecognized section and content) Personnel Name: Chiara Rainey Address: Address: [address] [place] [address]- FOR RECORDS PERTAINING TO PATIENTS WHO ARE [...] BE BASED ON THE PRIMARY CLINICAL RECORDS. [facility] [employer] provides no warranty or guarantee of the accuracy or completeness of information in this document.
[2024-02-03 09:15] LABS: Basophils Absolute Auto 0.1 10^3/uL (0.0-0.1); Basophils Percent Auto 1.7 % (0.2-2.0); Eosinophils Absolute Auto 0.4 10^3/uL (0.0-0.7); Eosinophils Percent Auto 5.4 % (0.9-7.0); Hemoglobin 10.4 g/dL (12.0-16.0); Immature Granulocytes Abs Auto 0.01 10^3/uL (0.00-0.03); Immature Granulocytes Pct Auto 0.1 % (0.0-0.5); Lymphocytes Absolute Auto 2.4 10^3/uL (1.2-3.8); Lymphocytes Percent Auto 34.1 % (20.5-60.0); Mean Corpuscular HGB Conc 31.5 g/dL (29.9-35.2); Mean Corpuscular Hemoglobin 27.2 pg (26.7-34.0); Mean Corpuscular Volume 86.4 fL (81.0-99.0); Mean Platelet Volume 9.7 fL (9.5-13.5); Monocytes Absolute Auto 0.5 10^3/uL (0.3-0.8); Monocytes Percent Auto 6.5 % (1.7-12.0); Neutrophils Absolute Auto 3.6 10^3/uL (1.4-6.5); Neutrophils Percent Auto 52.2 % (43.0-75.0); Platelet Count 374 10^3/uL (150-450); Red Blood Count 3.82 10^6/uL (4.20-5.40); Red Cell Distribution Width 13.2 % (11.0-15.0); White Blood Count 6.9 10^3/uL (4.0-11.0)
[2024-02-03 09:47] LABS: Alanine Aminotransferase 19 U/L (14-59); Albumin Globulin Ratio 0.8; Albumin Level 3.3 g/dL (3.4-5.0); Alkaline Phosphatase 106 U/L (46-116); Anion Gap 14.3; Aspartate Amino Transferase 26 U/L (15-37); Bilirubin Total 0.5 mg/dL (0.2-1.0); Calcium 9.1 mg/dL (8.5-10.1); Carbon Dioxide 26.8 mmol/L (21.0-32.0); Chloride 105 mmol/L (98-107); Chol HDL Ratio 2.9; Cholesterol 206 mg/dL (<=200); Estimated GFR (African America >60 (>=60 mL/min/1.73m^2); Estimated GFR (Non-African Ame >60 (>=60 mL/min/1.73m^2); Globulin 3.9 g/dL; Glucose 82 mg/dL (74-106); HDL Cholesterol 71 mg/dL (40-60); Potassium 4.1 mmol/L (3.5-5.1); Sodium 142 mmol/L (136-145); Thyroid Stimulating Hormone 2.869 uIU/mL (0.358-3.740); Total Protein 7.2 g/dL (6.4-8.2); Triglycerides 81 mg/dL (<=150); VLDL CHOLESTEROL 16.2 mg/dL
== END 2024-02-03 08:48 | disposition home or self-care (01) ==
LOC: LAB 08:48
PROVIDERS: PCP Family Medicine; Visit Provider Nurse Practitioner
DX: Z00.00 Encounter for general adult medical examination without abnormal findings (principal); E78.49 Other hyperlipidemia
CPT/HCPCS: 36415; 80053; 80061; 84443; 85025; 87150

== ENCOUNTER 2024-09-17 10:10 | Inpatient (IN) | payer MEDICARE, SELFPAY ==
--- OUTSIDE RECORDS SUMMARY | 2024-07-03 11:07 | XMS_ITS ---
Author Name Auto Generated Organization [facility] Care Team Providers Care [employer] Name Role Phone DAIANA SYED Attending Unavailable STACY GRAMAJO Primary Care Unavailable DAIANA SYED Attending Unavailable STACY GRAMAJO Primary Care Unavailable CharuChiara Attending Unavailable Charu, Chiara Fuentes Attending Unavailable Charu, Chiara Fuentes Attending Unavailable Charu, Chiara Fuentes Attending Unavailable Charu, Chiara Fuentes Attending Unavailable MELISSA DE SANTIAGO Attending Unavailable PROBLEMS DATE TYPE CONDITION / CODE ATTENDING STATUS [facility] RCE 07/02/2024 Admitting Diagnosis MUCOUS BUILD UP / UNK(Unknown) DAIANA SYED [facility] Ambulatory 11/23/2023 Admitting Diagnosis Hoarseness / FREETEXT() DAIANA SYED [facility] Ambulatory PROCEDURES No Procedure Records Found RESULTS FAMILY MEDICINE OFFICE/CLINI C NOTE Observed: 06/06/2024 11:37 AM Status: F Source: [facility] Family Medicine Office/Clini c Note HPI Staff Halie is a 74 year old female presenting for acute visit DOMENICA 05/22/24 Bilateral AC, gave kenalog and cephalexin, Triamcinolone cream Onset: 2 days Location: bilateral corner eyes , Description: red, dry Rash symptoms: barley itches History of Present Illness pt presents today with red dry patches on corner of both eyes and left side of mouth. mouth is a little itchy Review of Systems PHQ Score Initial Depression Screen Score: 0 SCORE Physical Exam Vitals & Measurements HR: 62(Peripheral) RR: 18 BP: 138/82 HT: 63 in HT: 160.0 cm WT: 134.261 lb WT: 60.9 kg BMI: 23.79 General: alert, no acute distress ENMT: oral mucosa moist, no pharyngeal erythema or exudate Cardiovascular: regular rate and rhythm, normal peripheral perfusion Respiratory: Lungs CTA, respirations non labored Extremities: no deformity, no trauma Neurological: oriented x 4, LOC appropriate for age, CN II-XII intact, motor strength equal & normal bilaterally, speech normal corners of both outer eyes are dry no redness, left corner of mouth Assessment/Plan 1. Dry skin dermatitis (L85.3: Xerosis cutis) pt presents today with dry itchy skin on outside of both eye and left side of mouth. eyes are not itchy . but the patch near her mouth is starting to itch. pt was just here last week for dry red patches on both arms. pt denies changing soaps or detergents. not really sure why her skin is so sensitive right now. pt was given kenalog at last visit. pt was provided healing ointment to put around her eyes and mouth. RTC as needed 2. BMI 23.0-23.9, adult (Z68.23: Body mass index [BMI] 23.0-23.9, adult) BMI education given 3. Non-smoker (Z78.9: Other specified health status) continue not smoking Follow-up No qualifying data available Problem List/Past Medical History Ongoing Allergic rhinitis, mild Arthritis BMI 23.0-23.9, adult Colonoscopy refused Contact dermatitis COVID-19 Dry skin dermatitis Elevated blood pressure reading Fatigue GERD (gastroesophageal reflux disease) Hypercholesterolemia Hyperlipidemia Impingement of shoulder Labyrinthitis Left bundle branch block (LBBB) Low back pain Major depressive disorder, recurrent episode, mild Migraines Muscle pain Osteoarthritis Osteoporosis Radiculopathy Historical Depression Procedure/Surgical History Arthroscopy of knee, Cataract, Shoulder repair, Surgery. Medications biotin 5000 mcg oral capsule calcium carbonate 1000 mg oral tablet, chewable, Chewed, QID Claritin 10 mg Tab, 10 mg= 1 tab(s), Oral, Daily ibuprofen 600 mg Tab, 600 mg= 1 tab(s), Oral, q6hr, 3 refills magnesium oxide 400 mg Tab, Oral, Daily Prilosec OTC, 20 mg triamcinolone Top 0.1% Crm 15 gram, 1 joel, Topical, TID Vitamin D3 5000 intl units (125 mcg) oral tab, Oral, Daily Vitamin K1 100 mcg oral tablet, Oral, Daily zinc gluconate 15 mg oral tablet Allergies Poison Liang No Known Medication Allergies Social History Alcohol Never., 02/02/2024 Never., 01/30/2024 Substance Abuse Never, 01/30/2024 Tobacco Never (less than 100 in lifetime) Tobacco Use:., 02/02/2024 Never (less than 100 in lifetime) Tobacco Use:. Never Smokeless Tobacco Use:., 01/27/2023 Family History Acute myocardial infarction: Father and Sibling.Negative: Brother. Diabetes mellitus type 2: Sibling.Negative: Brother. Heart murmur: Sibling.Negative: Brother. Hyperlipidemia: Sibling.Negative: Brother. Hypertension: Sibling.Negative: Brother. Renal failure syndrome: Sibling. Immunizations Vaccine Date Status Comments influenza virus vaccine, inactivated - Not Given Patient Refuses Result Comment: Electronical ly Signed By: Chiara Rainey\.br\Date and Time Signed: 06/06/24 12:56 EDT AMBULATORY VISIT SUMMARY Observed: 06/06 11:37 AM Status: F Source: [facility] Ambulatory Visit Summary HALIE MATT :1950 Visit Date:06/06/2024 Ambulatory Visit Instructions Your Diagnosis BMI 23.0-23.9, adult Non-smoker Your Care Team Attending Physician - Chiara Rainey Primary Care Physician - Chiara Rainey This Is Your Medications List biotin (biotin 5000 mcg oral capsule) calcium carbonate (calcium carbonate 1000 mg oral tablet, chewable) cholecalciferol (Vitamin D3 5000 intl units (125 mcg) oral tab) ibuprofen (ibuprofen 600 mg Tab) loratadine (Claritin 10 mg Tab) magnesium oxide (magnesium oxide 400 mg Tab) omeprazole (Prilosec OTC) phytonadione (Vitamin K1 100 mcg oral tablet) triamcinolone topical (triamcinolone Top 0.1% Crm 15 gram) zinc gluconate (zinc gluconate 15 mg oral tablet) Procedures Performed Arthroscopy of knee, Cataract, Shoulder repair, Surgery. Discharge Vitals Heart Rate (Peripheral) 62 Respiratory Rate 18 Blood Pressure 138/82 Height 160.0 cm Height 63 in Weight 60.9 kg Weight 134.261 lb BMI 23.79 What to do next Scheduled Follow-Up Appointments Tuesday 10:20 AM EST With: Chiara Rainey Where: [address] [address]- Tuesday 11:00 AM EST With: Where: [address] [id number]- Medications What How Much When Why Instructions Unchanged biotin (biotin 5000 mcg oral capsule) Unchanged calcium carbonate (calcium carbonate 1000 mg oral tablet, chewable) Chewed 4 times a day Unchanged cholecalciferol (Vitamin D3 5000 intl units (125 mcg) oral tab) By Mouth Every day Unchanged ibuprofen (ibuprofen 600 mg Tab) 1 Tablets By Mouth Every 6 hours Duration: 90 Days as needed, take with food Unchanged loratadine (Claritin 10 mg Tab) 1 Tablets By Mouth Every day Hypercholesterolemia Major depressive disorder, recurrent episode, mild Colonoscopy refused Allergic rhinitis, mild Non-smoker BMI 24.0-24.9, adult Unchanged magnesium oxide (magnesium oxide 400 mg Tab) By Mouth Every day Unchanged omeprazole (Prilosec OTC) 20 Milligram Unchanged phytonadione (Vitamin K1 100 mcg oral tablet) By Mouth Every day Unchanged triamcinolone topical (triamcinolone Top 0.1% Crm 15 gram) 1 Application Topical 3 times a day BMI 23.0-23.9, adult Non-smoker apply a thin film to affected area Unchanged zinc gluconate (zinc gluconate 15 mg oral tablet) Allergies Poison Liang No Known Medication Allergies Problems Ongoing - Any problem that you are currently receiving treatment for. Allergic rhinitis, mild Arthritis BMI 23.0-23.9, adult Colonoscopy refused Contact dermatitis COVID-19 Elevated blood pressure reading Fatigue GERD [...] you for choosing us for your care. FAMILY MEDICINE OFFICE/CLINI C NOTE Observed: 05/22/2024 3:26 PM Status: F Source: [facility] Medicine Office/Clini c Note HPI Staff Halie is a 74 year old female presenting for acute rash Onset: 1 week ago Location: Bilateral AC Description: red Rash symptoms: itching, burning Has been using aloe lotions, did at first put on afterbite to help with itch it started burning so she washed it off. Pt denies changing any soaps, lotions History of Present Illness pt presents today for rash on JACEK arms near anticub Review of Systems PHQ Score Initial Depression Screen Score: 0 SCORE Physical Exam Vitals & Measurements HR: 68(Peripheral) RR: 18 BP: 116/76 SpO2: 99% HT: 63 in HT: 160.0 cm WT: 61.3 kg WT: 135.143 lb BMI: 23.95 General: alert, no acute distress ENMT: oral mucosa moist, no pharyngeal erythema or exudate Cardiovascular: regular rate and rhythm, normal peripheral perfusion Respiratory: Lungs CTA, respirations non labored Extremities: no deformity, no trauma Neurological: oriented x 4, LOC appropriate for age, CN II-XII intact, motor strength equal & normal bilaterally, speech normal Assessment/Plan 1. Rash (R21: Rash and other nonspecific skin eruption) both mid arms are red and warm to touch. will give kenalog in office and will send cream and antibitoic Ordered: triamcinolone, 40 mg = 1 mL, Injection, IntraMuscular, Once, Stop date 05/22/24 14:51:00 EDT, Routine, Start date 05/22/24 14:51:00 EDT, 05/22/24 14:51:00 EDT 2. Contact dermatitis (L25.9: Unspecified contact dermatitis, unspecified cause) kenalog given in office, cream also sent. as well as keflex 3. BMI 23.0-23.9, adult (Z68.23: Body mass index [BMI] 23.0-23.9, adult) BMI education Ordered: cephalexin, 500 mg = 1 cap(s), Oral, TID, X 5 day(s), # 15 cap(s), Refills(s) 0, Pharmacy: [facility]/pharmacy #[id number], 160, cm, 03/11/25 14:41:00 EDT, Height/Length Dosing, 61.3, kg, 05/22/24 14:41:00 EDT, Weight Dosing triamcinolone topical, 1 joel, Topical, TID, 15 gram, Refill(s) 0, apply a thin film to affected area[id number], cm, 05/22/24 14:41:00 EDT, Height/Length Dosing, 61.3, kg, 05/22/24 14:41:00 EDT, Weight Dosing 4. Non-smoker (Z78.9: Other specified health status) continue not smoking Ordered: cephalexin, 500 mg = 1 cap(s), Oral, TID, X 5 day(s), # 15 cap(s), Refills(s) 0, [id number], 160, cm, 05/22/24 14:41:00 EDT, Height/Length Dosing, 61.3, kg, 05/22/24 14:41:00 EDT, Weight Dosing triamcinolone topical, 1 joel, Topical, TID, 15 gram, Refill(s) 0, apply a thin film to affected area, [id number], cm, 05/22/24 14:41:00 EDT, Height/Length Dosing, 61.3, kg, 05/22/24 14:41:00 EDT, Weight Dosing Follow-up No qualifying data available Problem List/Past Medical History Ongoing Allergic rhinitis, mild Arthritis BMI 23.0-23.9, adult Colonoscopy refused Contact dermatitis COVID-19 Elevated blood pressure reading Fatigue GERD (gastroesophageal reflux disease) Hypercholesterolemia Hyperlipidemia Impingement of shoulder Labyrinthitis Left bundle branch block (LBBB) Low back pain Major depressive disorder, recurrent episode, mild Migraines Muscle pain Osteoarthritis Osteoporosis Radiculopathy Historical Depression Procedure/Surgical History Arthroscopy of knee, Cataract, Shoulder repair, Surgery. Medications biotin 5000 mcg oral capsule calcium carbonate 1000 mg oral tablet, chewable, Chewed, QID Claritin 10 mg Tab, 10 mg= 1 tab(s), Oral, Daily ibuprofen 600 mg Tab, 600 mg= 1 tab(s), Oral, q6hr, 3 refills Keflex 500 mg Cap, 500 mg= 1 cap(s), Oral, TID magnesium oxide 400 mg Tab, Oral, Daily Prilosec OTC, 20 mg triamcinolone Top 0.1% Crm 15 gram, 1 joel, Topical, TID Vitamin D3 5000 intl units (125 mcg) oral tab, Oral, Daily Vitamin K1 100 mcg oral tablet, Oral, Daily zinc gluconate 15 mg oral tablet Allergies Poison Liang No Known Medication Allergies Social History Alcohol Never., 02/02/2024 Never., 01/30/2024 Substance Abuse Never, 01/30/2024 Tobacco Never (less than 100 in lifetime) Tobacco Use:., 02/02/2024 Never (less than 100 in lifetime) Tobacco Use:. Never Smokeless Tobacco Use:., 01/27/2023 Family History Acute myocardial infarction: Father and Sibling.Negative: Brother. Diabetes mellitus type 2: Sibling.Negative: Brother. Heart murmur: Sibling.Negative: Brother. Hyperlipidemia: Sibling.Negative: Brother. Hypertension: Sibling.Negative: Brother. Renal failure syndrome: Sibling. Immunizations Vaccine Date Status Comments influenza virus vaccine, inactivated - Not Given Patient Refuses Result Comment: Electronical ly Signed By: Chiara Rainey\.br\Date and Time Signed: 05/22/24 15:26 EDT AMBULATORY VISIT SUMMARY Observed: 02/01 2:23 PM Status: F Source: [facility] Ambulatory Visit Summary HALIE MATT :1950 Visit Date:02/02/2024 Ambulatory Visit Instructions Your Diagnosis Hypercholesterolemia Major depressive disorder, recurrent episode, mild Colonoscopy refused Allergic rhinitis, mild Non-smoker BMI 24.0-24.9, adult Your Care Team Attending Physician - Chiara Rainey Primary Care Physician - Chiara Rainey This Is Your Medications List biotin (biotin 5000 mcg oral capsule) calcium carbonate (calcium carbonate 1000 mg oral tablet, chewable) cholecalciferol (Vitamin D3 5000 intl units (125 mcg) oral tab) ibuprofen (ibuprofen 600 mg Tab) loratadine (Claritin 10 mg Tab) magnesium oxide (magnesium oxide 400 mg Tab) omeprazole (Prilosec OTC) phytonadione (Vitamin K1 100 mcg oral tablet) zinc gluconate (zinc gluconate 15 mg oral tablet) Procedures Performed Arthroscopy of knee, Cataract, Shoulder repair, Surgery. Discharge Vitals Temperature (Oral) 36.8 ???C Heart Rate (Peripheral) 68 Respiratory Rate 18 Blood Pressure 122/82 Height 160.0 cm Height 63 in Weight 61.8 kg Weight 136.246 lb BMI 24.14 What to do next Scheduled Follow-Up Appointments Tuesday 10:20 AM EST With: Chiara Rainey Where: [address] [address]- Tuesday 11:00 AM EST With: Where: [address] [address]- Medications What How Much When Why Instructions New ibuprofen (ibuprofen 600 mg Tab) 1 Tablets By Mouth Every 6 hours Duration: 90 Days Refills: 3 as needed, take with food Pickup at [facility]/pharmacy #[id number] New loratadine (Claritin 10 mg Tab) 1 Tablets By Mouth Every day Hypercholesterolemia Major depressive disorder, recurrent episode, mild Colonoscopy refused Allergic rhinitis, mild Non-smoker BMI 24.0-24.9, adult Pickup at [facility]/pharmacy #[id number] Unchanged biotin (biotin 5000 mcg oral capsule) Unchanged calcium carbonate (calcium carbonate 1000 mg oral tablet, chewable) Chewed 4 times a day Unchanged cholecalciferol (Vitamin D3 5000 intl units (125 mcg) oral tab) By Mouth Every day Unchanged magnesium oxide (magnesium oxide 400 mg Tab) By Mouth Every day Unchanged omeprazole (Prilosec OTC) 20 Milligram Unchanged phytonadione (Vitamin K1 100 mcg oral tablet) By Mouth Every day Unchanged zinc gluconate (zinc gluconate 15 mg oral tablet) Pharmacy Information [facility]/pharmacy #[id number]: [address], [place] [phone] Allergies Poison Liang No Known Medication Allergies Problems Ongoing - Any problem that you are currently receiving treatment for. Allergic rhinitis, mild Arthritis BMI 23.0-23.9, adult Colonoscopy refused COVID-19 Elevated blood pressure reading Fatigue GERD [...] you for choosing us for your care. FAMILY MEDICINE OFFICE/CLINI C NOTE Observed: 02/02/2024 2:20 PM Status: F Source: [facility] Medicine Office/Clini c Note HPI Staff Pt presents today for yearly follow up. Health Maintenance: Colonoscopy:Abnormal Cologuard 02/21/23. Refused Colonoscopy. Dexa:03/04/23 *Started on Fosamax at that time Mammo:NEG 03/01/23 Pap: a long time ago Last Labs:01/31/23 If she needs to do labs today she has to make another appt. because she doesn't have time today History of Present Illness pt presents today for wellness visit Review of Systems PHQ Score Initial Depression Screen Score: 0 SCORE Physical Exam Vitals & Measurements T: 36.8 ???C(Oral) HR: 68(Peripheral) RR: 18 BP: 122/82 SpO2: 99% HT: 63 in HT: 160.0 cm WT: 61.8 kg WT: 136.246 lb BMI: 24.14 General: alert, no acute distress ENMT: oral mucosa moist, no pharyngeal erythema or exudate Cardiovascular: regular rate and rhythm, normal peripheral perfusion Respiratory: Lungs CTA, respirations non labored Extremities: no deformity, no trauma Neurological: oriented x 4, LOC appropriate for age, CN II-XII intact, motor strength equal & normal bilaterally, speech normal Assessment/Plan 1. Hypercholesterolemia (E78.00: Pure hypercholesterolemia, unspecified) pt presents today annual follow up. pt does not have time to get labs today. pt provided lab order for [facility]. Ordered: loratadine, 10 mg = 1 tab(s), Oral, Daily, # 90 tab(s), Refills(s) 0, Pharmacy: [facility]/pharmacy #[id number], 160, cm, 02/02/24 13:48:00 EST, Height/Length Dosing, 61.8, kg, 02/02/24 13:48:00 EST, Weight Dosing 2. Major depressive disorder, recurrent episode, mild (F33.0: Major depressive disorder, recurrent, mild) stable at this time Ordered: loratadine, 10 mg = 1 tab(s), Oral, Daily, # 90 tab(s), Refills(s) 0, Pharmacy: [facility]/pharmacy #[id number], 160, cm, 02/02/24 13:48:00 EST, Height/Length Dosing, 61.8, kg, 02/02/24 13:48:00 EST, Weight Dosing 3. Colonoscopy refused (Z53.20: Procedure and treatment not carried out because of patient's decision for unspecified reasons) discussed colonoscopy. pt still declines at this time. Ordered: alendronate, 70 mg = 1 tab(s), Oral, q7day, # 12 tab(s), Refills(s) 0, Pharmacy: [facility]/pharmacy #[id number], 160, cm, 01/27/23 14:22:00 EST, Height/Length Dosing, 69.1, kg, 01/27/23 14:22:00 EST, Weight Dosing loratadine, 10 mg = 1 tab(s), Oral, Daily, # 90 tab(s), Refills(s) 0, Pharmacy: [facility]/pharmacy #[id number], 160, cm, 02/02/24 13:48:00 EST, Height/Length Dosing, 61.8, kg, 02/02/24 13:48:00 EST, Weight Dosing 4. Allergic rhinitis, mild (J30.9: Allergic rhinitis, unspecified) Claritin sent to pharmacy. pt declines Flonase Ordered: loratadine, 10 mg = 1 tab(s), Oral, Daily, # 90 tab(s), Refills(s) 0, Pharmacy: [facility]/pharmacy #[id number], 160, cm, 02/02/24 13:48:00 EST, Height/Length Dosing, 61.8, kg, 02/02/24 13:48:00 EST, Weight Dosing 5. Non-smoker (Z78.9: Other specified health status) continue not smoking Ordered: loratadine, 10 mg = 1 tab(s), Oral, Daily, # 90 tab(s), Refills(s) 0, Pharmacy: [facility]/pharmacy #[id number], 160, cm, 02/02/24 13:48:00 EST, Height/Length Dosing, 61.8, kg, 02/02/24 13:48:00 EST, Weight Dosing 6. BMI 24.0-24.9, adult (Z68.24: Body mass index [BMI] 24.0-24.9, adult) bmi education Ordered: loratadine, 10 mg = 1 tab(s), Oral, Daily, # 90 tab(s), Refills(s) 0, [id number], 160, cm, 02/02/24 13:48:00 EST, Height/Length Dosing, 61.8, kg, 02/02/24 13:48:00 EST, Weight Dosing Orders: ibuprofen, 600 mg = 1 tab(s), Oral, q6hr, as needed, take with food, X 90 day(s), # 90 tab(s), Refills(s) 3, [id number], 160, cm, 02/02/24 13:48:00 EST, Height/Length Dosing, 61.8, kg, 02/02/24 13:48:00 EST, Weight Dosing ibuprofen, 600 mg = 1 tab(s), Oral, q6hr, as needed, take with food, # 90 tab(s), Refills(s) 5, [id number], 160, cm, 01/27/23 14:22:00 EST, Height/Length Dosing, 69.1, kg, 01/27/23 14:22:00 EST, Weight Dosing Follow-up No qualifying data available Problem List/Past Medical History Ongoing Allergic rhinitis, mild Arthritis BMI 23.0-23.9, adult Colonoscopy refused COVID-19 Elevated blood pressure reading Fatigue GERD (gastroesophageal reflux disease) Hypercholesterolemia Hyperlipidemia Impingement of shoulder Labyrinthitis Left bundle branch block (LBBB) Low back pain Major depressive disorder, recurrent episode, mild Migraines Muscle pain Osteoarthritis Osteoporosis Radiculopathy Historical Depression Procedure/Surgical History Arthroscopy of knee, Cataract, Shoulder repair, Surgery. Medications biotin 5000 mcg oral capsule calcium carbonate 1000 mg oral tablet, chewable, Chewed, QID Claritin 10 mg Tab, 10 mg= 1 tab(s), Oral, Daily ibuprofen 600 mg Tab, 600 mg= 1 tab(s), Oral, q6hr, 3 refills magnesium oxide 400 mg Tab, Oral, Daily Prilosec OTC, 20 mg Vitamin D3 5000 intl units (125 mcg) oral tab, Oral, Daily Vitamin K1 100 mcg oral tablet, Oral, Daily zinc gluconate 15 mg oral tablet Allergies Poison Liang No Known Medication Allergies Social History Alcohol Never., 02/02/2024 Never., 01/30/2024 Substance Abuse Never, 01/30/2024 Tobacco Never (less than 100 in lifetime) Tobacco Use:., 02/02/2024 Never (less than 100 in lifetime) Tobacco Use:. Never Smokeless Tobacco Use:., 01/27/2023 Family History Acute myocardial infarction: Father and Sibling.Negative: Brother. Diabetes mellitus type 2: Sibling.Negative: Brother. Heart murmur: Sibling.Negative: Brother. Hyperlipidemia: Sibling.Negative: Brother. Hypertension: Sibling.Negative: Brother. Renal failure syndrome: Sibling. Immunizations Vaccine Date Status Comments influenza virus vaccine, inactivated - Not Given Patient Refuses Result Comment: Electronical ly Signed By: Chiara Rainey\.br\Date and Time Signed: 02/02/24 14:20 EST AMBULATORY VISIT SUMMARY Observed: 01/29 1:39 PM Status: F Source: [facility] Ambulatory Visit Summary HALIE MATT :1950 Visit Date:01/30/2024 Ambulatory Visit Instructions Your Diagnosis Encounter for subsequent annual wellness visit (AWV) in Medicare patient Hyperlipidemia Immunization refused GERD (gastroesophageal reflux disease) Osteoporosis Screening mammography declined, Colon cancer screening declined Your Care Team Attending Physician - Chiara Rainey Primary Care Physician - Chiara Rainey This Is Your Medications List alendronate (Fosamax 70 mg Tab) biotin (biotin 5000 mcg oral capsule) calcium carbonate (calcium carbonate 1000 mg oral tablet, chewable) cholecalciferol (Vitamin D3 5000 intl units (125 mcg) oral tab) ibuprofen (ibuprofen 600 mg Tab) magnesium oxide (magnesium oxide 400 mg Tab) omeprazole (Prilosec OTC) phytonadione (Vitamin K1 100 mcg oral tablet) zinc gluconate (zinc gluconate 15 mg oral tablet) Procedures Performed Arthroscopy of knee, Cataract, Shoulder repair, Surgery. Discharge Vitals Temperature (Temporal Artery) 37.0 ???C Heart Rate (Peripheral) 76 Respiratory Rate 16 Blood Pressure 146/74 Height 160 cm Height 63 in Weight 61.15 kg Weight 134.813 lb BMI 23.89 What to do next Scheduled Follow-Up Appointments Tuesday 9:00 AM EST With: Where: [address] [address]23 1:40 PM EST With: Chiara Rainey Where: [address] [address]- Tuesday 11:00 AM EST With: Where: [address] [address] You Need to Complete the Following Lipid Panel, Blood, Routine collect, 01/30/24, Order for future visit, Lab Collect, Hyperlipidemia, Print Label By Order Location Medications What How Much When Why Instructions Unchanged alendronate (Fosamax 70 mg Tab) 1 Tablets By Mouth Every 7 days Colonoscopy refused Unchanged biotin (biotin 5000 mcg oral capsule) Unchanged calcium carbonate (calcium carbonate 1000 mg oral tablet, chewable) Chewed 4 times a day Unchanged cholecalciferol (Vitamin D3 5000 intl units (125 mcg) oral tab) By Mouth Every day Unchanged ibuprofen (ibuprofen 600 mg Tab) 1 Tablets By Mouth Every 6 hours as needed, take with food Unchanged magnesium oxide (magnesium oxide 400 mg Tab) By Mouth Every day Unchanged omeprazole (Prilosec OTC) 20 Milligram Unchanged phytonadione (Vitamin K1 100 mcg oral tablet) By Mouth Every day Unchanged zinc gluconate (zinc gluconate 15 mg oral tablet) Medications and Immunizations Administered Not Given influenza virus vaccine, inactivated, Patient Refuses Allergies Poison Liang No Known Medication Allergies Problems Ongoing - Any problem that you are currently receiving treatment for. Arthritis BMI 23.0-23.9, adult Colonoscopy refused COVID-19 Elevated blood pressure reading Fatigue GERD [...] you for choosing us for your care. Education Materials Bone Health Bones protect organs, store calcium, anchor muscles, and support the whole body. Keeping your bones strong is important, especially as you get older. You can take actions to help keep your bones strong and healthy. Why is keeping my bones healthy important? Keeping your bones healthy is important because your body constantly replaces bone cells. Cells get old, and new cells take their place. As we age, we lose bone cells because the body may not be able to make enough new cells to replace the old cells. The amount of bone cells and bone tissue you have is referred to as bone mass. The higher your bone mass, the stronger your bones. The aging process leads to an overall loss of bone mass in the body, which can increase the likelihood of: ??? Broken bones. ??? A condition in which the bones become weak and brittle (osteoporosis). A large decline in bone mass occurs in older adults. In women, it occurs about the time of menopause. What actions can I take to keep my bones healthy? Good health habits are important for maintaining healthy bones. This includes eating nutritious foods and exercising regularly. To have healthy bones, you need to get enough of the right minerals and vitamins. Most nutrition experts recommend getting these nutrients from the foods that you eat. In some cases, taking supplements may also be recommended. Doing certain types of exercise is also important for bone health. What are the nutritional recommendations for healthy bones? Eating a well-balanced diet with plenty of calcium and vitamin D will help to protect your bones. Nutritional recommendations vary from person to person. Ask your health care provider what is healthy for you. Here are some general guidelines. Get enough calcium Calcium is the most important (essential) mineral for bone health. Most people can get enough calcium from their diet, but supplements may be recommended for people who are at risk for osteoporosis. Good sources of calcium include: ??? Dairy products, such as low-fat or nonfat milk, cheese, and yogurt. ??? Dark green leafy vegetables, such as bok don and broccoli. ??? Foods that have calcium added to them (are fortified). Foods that may be fortified with calcium include orange juice, cereal, bread, soy beverages, and tofu products. ??? Nuts, such as almonds. Follow these recommended amounts for daily calcium intake: ??? Infants, 0???6 months: 200 mg. ??? Infants, 6???12 months: 260 mg. ??? Children, age 1???3: 700 mg. ??? Children, age 4???8: 1,000 mg. ??? Children, age 9???13: 1,300 mg. ??? Teens, age 14???18: 1,300 mg. ??? Adults, age 19???50: 1,000 mg. ??? Adults, age 51???70: ? Men: 1,000 mg. ? Women: 1,200 mg. ??? Adults, age 71 or older: 1,200 mg. ??? and females: ? Teens: 1,300 mg. ? Adults: 1,000 mg. Get enough vitamin D Vitamin D is the most essential vitamin for bone health. It helps the body absorb calcium. Sunlight stimulates the skin to make vitamin D, so be sure to get enough sunlight. If you live in a cold climate or you do not get outside often, your health care provider may recommend that you take vitamin D supplements. Good sources of vitamin D in your diet include: ??? Egg yolks. ??? Saltwater fish. ??? Milk and cereal fortified with vitamin D. Follow these recommended amounts for daily vitamin D intake: ??? Infants, 0???12 months: 400 international units (IU). ??? Children and teens, age 1???18: 600 international units. ??? Adults, age 59 or younger: 600 international units. ??? Adults, age 60 or older: 600???1,000 international units. Get other important nutrients Other nutrients that are important for bone health include: ??? Phosphorus. This mineral is found in meat, poultry, dairy foods, nuts, and legumes. The recommended daily intake for adult men and adult women is 700 mg. ??? Magnesium. This mineral is found in seeds, nuts, dark green vegetables, and legumes. The recommended daily intake for adult men is 400???420 mg. For adult women, it is 310???320 mg. ??? Vitamin K. This vitamin is found in green leafy vegetables. The recommended daily intake is 120 mcg for adult men and 90 mcg for adult women. What type of physical activity is best for building and maintaining healthy bones? Weight-bearing and strength-building activities are important for building and maintaining healthy bones. Weight-bearing activities cause muscles and bones to work against gravity. Strength-building activities increase the strength of the muscles that support bones. Weight-bearing and muscle-building activities include: ??? Walking and hiking. ??? Jogging and running. ??? Dancing. ??? Gym exercises. ??? Lifting weights. ??? Tennis and racquetball. ??? Climbing stairs. ??? Aerobics. Adults should get at least 30 minutes of moderate physical activity on most days. Children should get at least 60 minutes of moderate physical activity on most days. Ask your health care provider what type of exercise is best for you. How can I find out if my bone mass is low? Bone mass can be measured with an X-ray test called a bone mineral density (BMD) test. This test is recommended for all women who are age 65 or older. It may also be recommended for: ??? Men who are age 70 or older. ??? People who are at risk for osteoporosis because of: ? Having a long-term disease that weakens bones, such as kidney disease or rheumatoid arthritis. ? Having menopause earlier than normal. ? Taking medicine that weakens bones, such as steroids, thyroid hormones, or hormone treatment for breast cancer or prostate cancer. ? Smoking. ? Drinking three or more alcoholic drinks a day. ? Being underweight. ? Sedentary lifestyle. If you find that you have a low bone mass, you may be able to prevent osteoporosis or further bone loss by changing your diet and lifestyle. Where can I find more information? Bone Health & Osteoporosis Foundation: www.nof.org/patients ??? National Institutes of Health: www.bones.nih.gov ??? International Osteoporosis Foundation: www.iofbonehealth.org Summary ??? The aging process leads to an overall loss of bone mass in the body, which can increase the likelihood of broken bones and osteoporosis. ??? Eating a well-balanced diet with plenty of calcium and vitamin D will help to protect your bones. ??? Weight-bearing and strength-building activities are also important for building and maintaining strong bones. ??? Bone mass can be measured with an X-ray test called a bone mineral density (BMD) test. This information is not intended to replace advice given to you by your health care provider. Make sure you discuss any questions you have with your health care provider. Document Revised: 08/12/2021 Document Reviewed: 08/12/2021 [employer] Patient Education ??? 2023 [employer] Osteoporosis Osteoporosis happens when the bones become thin and less dense than normal. Osteoporosis makes bones more brittle and fragile and more likely to break (fracture). Over time, osteoporosis can cause your bones to become so weak that they fracture after a minor fall. Bones in the hip, wrist, and spine are most likely to fracture due to osteoporosis. What are the causes? The exact cause of this condition is not known. What increases the risk? You are more likely to develop this condition if you: ??? Have family members with this condition. ??? Have poor nutrition. ??? Use the following: ? Steroid medicines, such as prednisone. ? Anti-seizure medicines. ? Nicotine or tobacco, such as cigarettes, e-cigarettes, and chewing tobacco. ??? Are female. ??? Are age 50 or older. ??? Are not physically active (are sedentary). ??? Are of or descent. ??? Have a small body frame. What are the signs or symptoms? A fracture might be the first sign of osteoporosis, especially if the fracture results from a fall or injury that usually would not cause a bone to break. Other signs and symptoms include: ??? Pain in the neck or low back. ??? Stooped posture. ??? Loss of height. How is this diagnosed? This condition may be diagnosed based on: ??? Your medical history. ??? A physical exam. ??? A bone mineral density test, also called a DXA or DEXA test (dual-energy X-ray absorptiometry test). This test uses X-rays to measure the amount of minerals in your bones. How is this treated? This condition may be treated by: ??? Making lifestyle changes, such as: ? Including foods with more calcium and vitamin D in your diet. ? Doing weight-bearing and muscle-strengthening exercises. ? Stopping tobacco use. ? Limiting alcohol intake. ??? Taking medicine to slow the process of bone loss or to increase bone density. ??? Taking daily supplements of calcium and vitamin D. ??? Taking hormone replacement medicines, such as estrogen for women and testosterone for men. ??? Monitoring your levels of calcium and vitamin D. The goal of treatment is to strengthen your bones and lower your risk for a fracture. Follow these instructions at home: Eating and drinking Include calcium and vitamin D in your diet. Calcium is important for bone health, and vitamin D helps your body absorb calcium. Good sources of calcium and vitamin D include: ??? Certain fatty fish, such as salmon and tuna. ??? Products that have calcium and vitamin D added to them (are fortified), such as fortified cereals. ??? Egg yolks. ??? Cheese. ??? Liver. Activity Do exercises as told by your health care provider. Ask your health care provider what exercises and activities are safe for you. You should do: ??? Exercises that make you work against gravity (weight-bearing exercises), such as quintin chi, yoga, or walking. ??? Exercises to strengthen muscles, such as lifting weights. Lifestyle ??? Do not drink alcohol if: ? Your health care provider tells you not to drink. ? You are , may be , or are planning to become . ??? If you drink alcohol: ? Limit how much you use to: ? 0???1 drink a day for women. ? 0???2 drinks a day for men. ??? Know how much alcohol is in your drink. In the [place] one drink equals one 12 oz bottle of beer (355 mL), one 5 oz glass of wine (148 mL), or one 1??? oz glass of hard liquor (44 mL). ??? Do not use any products that contain nicotine or tobacco, such as cigarettes, e-cigarettes, and chewing tobacco. If you need help quitting, ask your health care provider. Preventing falls ??? Use devices to help you move around (mobility aids) as needed, such as canes, walkers, scooters, or crutches. ??? Keep rooms well-lit and clutter-free. ??? Remove tripping hazards from walkways, including cords and throw rugs. ??? Install grab bars in bathrooms and safety rails on stairs. ??? Use rubber mats in the bathroom and other areas that are often wet or slippery. ??? Wear closed-toe shoes that fit well and support your feet. Wear shoes that have rubber soles or low heels. ??? Review your medicines with your health care provider. Some medicines can cause dizziness or changes in blood pressure, which can increase your risk of falling. General instructions ??? Take fuwm-dwy-mactgdk and prescription medicines only as told by your health care provider. ??? Keep all follow-up visits. This is important. Contact a health care provider if: ??? You have never been screened for osteoporosis and you are: ? A woman who is age 65 or older. ? A man who is age 70 or older. Get help right away if: ??? You fall or injure yourself. Summary ??? Osteoporosis is thinning and loss of density in your bones. This makes bones more brittle and fragile and more likely to break (fracture),even with minor falls. ??? The goal of treatment is to strengthen your bones and lower your risk for a fracture. ??? Include calcium and vitamin D in your diet. Calcium is important for bone health, and vitamin D helps your body absorb calcium. ??? Talk with your health care provider about screening for osteoporosis if you are a woman who is age 65 or older, or a man who is age 70 or older. This information is not intended to replace advice given to you by your health care provider. Make sure you discuss any questions you have with your health care provider. Document Revised: 08/14/2020 Document Reviewed: 08/14/2020 [employer] Patient Education ??? 2023 [employer] Heartburn Heartburn is a type of pain or discomfort that can happen in the throat or chest. It is often described as a burning pain. It may also cause a bad, acid-like taste in the mouth. Heartburn may feel worse when you lie down or bend over, and it is often worse at night. Heartburn may be caused by stomach contents that move back up into the esophagus (reflux). Follow these instructions at home: Eating and drinking ??? Avoid certain foods and drinks as told by your health care provider. This may include: ? Coffee and tea, with or without caffeine. ? Drinks that contain alcohol. ? Energy drinks and sports drinks. ? Carbonated drinks or sodas. ? Chocolate and cocoa. ? Peppermint and mint flavorings. ? Garlic and onions. ? Horseradish. ? Spicy and acidic foods, including peppers, chili powder, felix powder, vinegar, hot sauces, and barbecue sauce. ? Cassia fruit juices and citrus fruits, such as oranges, nikita, and limes. ? Tomato-based foods, such as red sauce, chili, salsa, and pizza with red sauce. ? Fried and fatty foods, such as donuts, ukrainian fries, potato chips, and high-fat dressings. ? High-fat meats, such as hot dogs and fatty cuts of red and white meats, such as rib eye steak, sausage, ham, and huang. ? High-fat dairy items, such as whole milk, butter, and cream cheese. ??? Eat small, frequent meals instead of large meals. ??? Avoid drinking large amounts of liquid with your meals. ??? Avoid eating meals during the 2???3 hours before bedtime. ??? Avoid lying down right after you eat. ??? Do not exercise right after you eat. Lifestyle ??? If you are overweight, reduce your weight to an amount that is healthy for you. Ask your health care provider for guidance about a safe weight loss goal. ??? Do not use any products that contain nicotine or tobacco. These products include cigarettes, chewing tobacco, and vaping devices, such as e-cigarettes. These can make symptoms worse. If you need help quitting, ask your health care provider. ??? Wear loose-fitting clothing. Do not wear anything tight around your waist that causes pressure on your abdomen. ??? Raise (elevate) the head of your bed about 6 inches (15 cm) when you sleep. You can use a wedge to do this. ??? Try to reduce your stress, such as with yoga or meditation. If you need help reducing stress, ask your health care provider. Medicines ??? Take wgab-hzd-glvjopy and prescription medicines only as told by your health care provider. ??? Do not take aspirin or NSAIDs, such as ibuprofen, unless your health care provider told you to do so. ??? Stop medicines only as told by your health care provider. If you stop taking some medicines too quickly, your symptoms may get worse. General instructions ??? Pay attention to any changes in your symptoms. ??? Keep all follow-up visits. This is important. Contact a health care provider if: ??? You have new symptoms. ??? You have unexplained weight loss. ??? You have difficulty swallowing, or it hurts to swallow. ??? You have wheezing or a persistent cough. ??? Your symptoms do not improve with treatment. ??? You have frequent heartburn for more than 2 weeks. Get help right away if: ??? You suddenly have pain in your arms, neck, jaw, teeth, or back. ??? You suddenly feel sweaty, dizzy, or light-headed. ??? You have chest pain or shortness of breath. ??? You vomit and your vomit looks like blood or coffee grounds. ??? Your stool is bloody or black. These symptoms may represent a serious problem that is an emergency. Do not wait to see if the symptoms will go away. Get medical help right away. Call your local emergency services (911 in the [place] Do not drive yourself to the hospital. Summary ??? Heartburn is a type of pain or discomfort that can happen in the throat or chest. It is often described as a burning pain. It may also cause a bad, acid-like taste in the mouth. ??? Avoid certain foods and drinks as told by your health care provider. ??? Take zcbn-glz-idclrrx and prescription medicines only as told by your health care provider. Do not take aspirin or NSAIDs, such as ibuprofen, unless your health care provider told you to do so. ??? Contact a health care provider if your symptoms do not improve or they get worse. This information is not intended to replace advice given to you by your health care provider. Make sure you discuss any questions you have with your health care provider. Document Revised: 09/03/2020 Document Reviewed: 09/03/2020 [employer] Patient Education ??? 2023 [employer]. High Cholesterol High cholesterol is a condition in which the blood has high levels of a white, waxy substance similar to fat (cholesterol). The liver makes all the cholesterol that the body needs. The human body needs small amounts of cholesterol to help build cells. A person gets extra or excess cholesterol from the food that he or she eats. The blood carries cholesterol from the liver to the rest of the body. If you have high cholesterol, deposits (plaques) may build up on the matt of your arteries. Arteries are the blood vessels that carry blood away from your heart. These plaques make the arteries narrow and stiff. Cholesterol plaques increase your risk for heart attack and stroke. Work with your health care provider to keep your cholesterol levels in a healthy range. What increases the risk? The following factors may make you more likely to develop this condition: ??? Eating foods that are high in animal fat (saturated fat) or cholesterol. ??? Being overweight. ??? Not getting enough exercise. ??? A family history of high cholesterol (familial hypercholesterolemia). ??? Use of tobacco products. ??? Having diabetes. What are the signs or symptoms? In most cases, high cholesterol does not usually cause any symptoms. In severe cases, very high cholesterol levels can cause: ??? Fatty bumps under the skin (xanthomas). ??? A white or scanlon ring around the black center (pupil) of the eye. How is this diagnosed? This condition may be diagnosed based on the results of a blood test. ??? If you are older than 20 years of age, your health care provider may check your cholesterol levels every 4???6 years. ??? You may be checked more often if you have high cholesterol or other risk factors for heart disease. The blood test for cholesterol measures: ??? Bad cholesterol, or LDL cholesterol. This is the main type of cholesterol that causes heart disease. The desired level is less than 100 mg/dL (2.59 mmol/L). ??? Good cholesterol, or HDL cholesterol. HDL helps protect against heart disease by cleaning the arteries and carrying the LDL to the liver for processing. The desired level for HDL is 60 mg/dL (1.55 mmol/L) or higher. ??? Triglycerides. These are fats that your body can store or burn for energy. The desired level is less than 150 mg/dL (1.69 mmol/L). ??? Total cholesterol. This measures the total amount of cholesterol in your blood and includes LDL, HDL, and triglycerides. The desired level is less than 200 mg/dL (5.17 mmol/L). How is this treated? Treatment for high cholesterol starts with lifestyle changes, such as diet and exercise. ??? Diet changes. You may be asked to eat foods that have more fiber and less saturated fats or added sugar. ??? Lifestyle changes. These may include regular exercise, maintaining a healthy weight, and quitting use of tobacco products. ??? Medicines. These are given when diet and lifestyle changes have not worked. You may be prescribed a statin medicine to help lower your cholesterol levels. Follow these instructions at home: Eating and drinking ??? Eat a healthy, balanced diet. This diet includes: ? Daily servings of a variety of fresh, frozen, or canned fruits and vegetables. ? Daily servings of whole grain foods that are rich in fiber. ? Foods that are low in saturated fats and trans fats. These include poultry and fish without skin, lean cuts of meat, and low-fat dairy products. ? A variety of fish, especially oily fish that contain omega-3 fatty acids. Aim to eat fish at least 2 times a week. ??? Avoid foods and drinks that have added sugar. ??? Use healthy cooking methods, such as roasting, grilling, broiling, baking, poaching, steaming, and stir-frying. Do not estrada your food except for stir-frying. ??? If you drink alcohol: ? Limit how much you have to: ? 0???1 drink a day for women who are not . ? 0???2 drinks a day for men. ? Know how much alcohol is in a drink. In the [place] one drink equals one 12 oz bottle of beer (355 mL), one 5 oz glass of wine (148 mL), or one 1??? oz glass of hard liquor (44 mL). Lifestyle ??? Get regular exercise. Aim to exercise for a total of 150 minutes a week. Increase your activity level by doing activities such as gardening, walking, and taking the stairs. ??? Do not use any products that contain nicotine or tobacco. These products include cigarettes, chewing tobacco, and vaping devices, such as e-cigarettes. If you need help quitting, ask your health care provider. General instructions ??? Take whwj-rme-hobbseh and prescription medicines only as told by your health care provider. ??? Keep all follow-up visits. This is important. Where to find more information ??? [place] [employer] Association: www.heart.org ??? National Heart, Lung, and [facility] [place]: www.nhlbi.nih.gov Contact a health care provider if: ??? You have trouble achieving or maintaining a healthy diet or weight. ??? You are starting an exercise program. ??? You are unable to stop smoking. Get help right away if: ??? You have chest pain. ??? You have trouble breathing. ??? You have discomfort or pain in your jaw, neck, back, shoulder, or arm. ??? You have any symptoms of a stroke. BE FAST is an easy way to remember the main warning signs of a stroke: ? B - Balance. Signs are dizziness, sudden trouble walking, or loss of balance. ? E - Eyes. Signs are trouble seeing or a sudden change in vision. ? F - Face. Signs are sudden weakness or numbness of the face, or the face or eyelid drooping on one side. ? A - Arms. Signs are weakness or numbness in an arm. This happens suddenly and usually on one side of the body. ? S - Speech. Signs are sudden trouble speaking, slurred speech, or trouble understanding what people say. ? T - Time. Time to call emergency services. Write down what time symptoms started. ??? You have other signs of a stroke, such as: ? A sudden, severe headache with no known cause. ? Nausea or vomiting. ? Seizure. These symptoms may represent a serious problem that is an emergency. Do not wait to see if the symptoms will go away. Get medical help right away. Call your local emergency services (911 in the [place] Do not drive yourself to the hospital. Summary ??? Cholesterol plaques increase your risk for heart attack and stroke. Work with your health care provider to keep your cholesterol levels in a healthy range. ??? Eat a healthy, balanced diet, get regular exercise, and maintain a healthy weight. ??? Do not use any products that contain nicotine or tobacco. These products include cigarettes, chewing tobacco, and vaping devices, such as e-cigarettes. ??? Get help right away if you have any symptoms of a stroke. This information is not intended to replace advice given to you by your health care provider. Make sure you discuss any questions you have with your health care provider. Document Revised: 10/01/2022 Document Reviewed: 05/04/2021 [employer] Patient Education ??? 2023 [employer] Heart Attack A heart attack occurs when blood and oxygen supply to the heart is cut off. A heart attack can cause damage to the heart that cannot be fixed. A heart attack is also called a myocardial infarction, or [place]. If you think you are having a [...] these instructions at home: Medicines ??? Take hvdy-dym-mkbwjfs and prescription medicines only as told by [...] Limit how much you have to: ? 0???1 drink a day for women. ? 0???2 drinks a day for men. ? Know how much alcohol is in your drink. In the [place] one drink equals one 12 oz bottle of beer (355 mL), one 5 oz glass of wine (148 mL), or one 1??? oz glass of hard liquor (44 mL). [...] may vomit or you vomit. ??? You feel tired or weak. ??? You feel your heart beating fast. ??? You feel your heart skipping beats. ??? You have blood pressure that is higher than 180/120. These symptoms may be an emergency. Get help right away. Call your local emergency services (911 in the [place] ??? Do not wait to see if the symptoms will go away. ??? Do not drive yourself to the hospital. Summary ??? A heart attack occurs when blood and oxygen supply to the heart is cut off. ??? Do not take NSAIDs unless your doctor says it is okay. ??? Do not smoke. Avoid secondhand smoke. ??? Exercise regularly. Ask your doctor about a cardiac rehab program. This information is not intended to replace advice given to you by your health care provider. Make sure you discuss any questions you have with your health care provider. Document Revised: 08/20/2021 Document Reviewed: 08/20/2021 [employer] Patient Education ??? 2023 [employer]. PATIENT EDUCATION Observed: 01/30/2024 1:39 PM Status: C Source: [facility] Patient Education Emergency Medicine Heart Attack A heart attack occurs when blood and oxygen supply to the heart is cut off. A heart attack can cause damage to the heart that cannot be fixed. A heart attack is also called a myocardial infarction, or [place]. If you think you are having a [...] these instructions at home: Medicines ??? Take yntn-vpx-bgopjfc and prescription medicines only as told by [...] may vomit or you vomit. ??? You feel tired or weak. ??? You feel your heart beating fast. ??? You feel your heart skipping beats. ??? You have blood pressure that is higher than 180/120. These symptoms may be an emergency. Get help right away. Call your local emergency services (911 in the [place] ??? Do not wait to see if the symptoms will go away. ??? Do not drive yourself to the hospital. Summary ??? A heart attack occurs when blood and oxygen supply to the heart is cut off. ??? Do not take NSAIDs unless your doctor says it is okay. ??? Do not smoke. Avoid secondhand smoke. ??? Exercise regularly. Ask your doctor about a cardiac rehab program. This information is not intended to replace advice given to you by your health care provider. Make sure you discuss any questions you have with your health care provider. Document Revised: 08/20/2021 Document Reviewed: 08/20/2021 [employer] Patient Education ? 2023 [employer]Gastroenterology Heartburn Heartburn is a type of pain or discomfort that can happen in the throat or chest. It is often described as a burning pain. It may also cause a bad, acid-like taste in the mouth. Heartburn may feel worse when you lie down or bend over, and it is often worse at night. Heartburn may be caused by stomach contents that move back up into the esophagus (reflux). Follow these instructions at home: Eating and drinking ??? Avoid certain foods and drinks as told by your health care provider. This may include: ? Coffee and tea, with or without caffeine. ? Drinks that contain alcohol. ? Energy drinks and sports drinks. ? Carbonated drinks or sodas. ? Chocolate and cocoa. ? Peppermint and mint flavorings. ? Garlic and onions. ? Horseradish. ? Spicy and acidic foods, including peppers, chili powder, felix powder, vinegar, hot sauces, and barbecue sauce. ? Cassia fruit juices and citrus fruits, such as oranges, nikita, and limes. ? Tomato-based foods, such as red sauce, chili, salsa, and pizza with red sauce. ? Fried and fatty foods, such as donuts, ukrainian fries, potato chips, and high- fat dressings. ? High-fat meats, such as hot dogs and fatty cuts of red and white meats, such as rib eye steak, sausage, ham, and huang. ? High-fat dairy items, such as whole milk, butter, and cream cheese. ??? Eat small, frequent meals instead of large meals. ??? Avoid drinking large amounts of liquid with your meals. ??? Avoid eating meals during the 2?3 hours before bedtime. ??? Avoid lying down right after you eat. ??? Do not exercise right after you eat. Lifestyle ??? If you are overweight, reduce your weight to an amount that is healthy for you. Ask your health care provider for guidance about a safe weight loss goal. ??? Do not use any products that contain nicotine or tobacco. These products include cigarettes, chewing tobacco, and vaping devices, such as e-cigarettes. These can make symptoms worse. If you need help quitting, ask your health care provider. ??? Wear loose-fitting clothing. Do not wear anything tight around your waist that causes pressure on your abdomen. ??? Raise (elevate) the head of your bed about 6 inches (15 cm) when you sleep. You can use a wedge to do this. ??? Try to reduce your stress, such as with yoga or meditation. If you need help reducing stress, ask your health care provider. Medicines ??? Take dpde-faq-zrdwkeb and prescription medicines only as told by your health care provider. ??? Do not take aspirin or NSAIDs, such as ibuprofen, unless your health care provider told you to do so. ??? Stop medicines only as told by your health care provider. If you stop taking some medicines too quickly, your symptoms may get worse. General instructions ??? Pay attention to any changes in your symptoms. ??? Keep all follow-up visits. This is important. Contact a health care provider if: ??? You have new symptoms. ??? You have unexplained weight loss. ??? You have difficulty swallowing, or it hurts to swallow. ??? You have wheezing or a persistent cough. ??? Your symptoms do not improve with treatment. ??? You have frequent heartburn for more than 2 weeks. Get help right away if: ??? You suddenly have pain in your arms, neck, jaw, teeth, or back. ??? You suddenly feel sweaty, dizzy, or light-headed. ??? You have chest pain or shortness of breath. ??? You vomit and your vomit looks like blood or coffee grounds. ??? Your stool is bloody or black. These symptoms may represent a serious problem that is an emergency. Do not wait to see if the symptoms will go away. Get medical help right away. Call your local emergency services (911 in the [place] Do not drive yourself to the hospital. Summary ??? Heartburn is a type of pain or discomfort that can happen in the throat or chest. It is often described as a burning pain. It may also cause a bad, acid-like taste in the mouth. ??? Avoid certain foods and drinks as told by your health care provider. ??? Take notm-wku-vezxcsr and prescription medicines only as told by your health care provider. Do not take aspirin or NSAIDs, such as ibuprofen, unless your health care provider told you to do so. ??? Contact a health care provider if your symptoms do not improve or they get worse. This information is not intended to replace advice given to you by your health care provider. Make sure you discuss any questions you have with your health care provider. Document Revised: 09/03/2020 Document Reviewed: 09/03/2020 [employer] Patient Education ? 2023 [employer].Nutrition High Cholesterol High cholesterol is a condition in which the blood has high levels of a white, waxy substance similar to fat (cholesterol). The liver makes all the cholesterol that the body needs. The human body needs small amounts of cholesterol to help build cells. A person gets extra or excess cholesterol from the food that he or she eats. The blood carries cholesterol from the liver to the rest of the body. If you have high cholesterol, deposits (plaques) may build up on the matt of your arteries. Arteries are the blood vessels that carry blood away from your heart. These plaques make the arteries narrow and stiff. Cholesterol plaques increase your risk for heart attack and stroke. Work with your health care provider to keep your cholesterol levels in a healthy range. What increases the risk? The following factors may make you more likely to develop this condition: ??? Eating foods that are high in animal fat (saturated fat) or cholesterol. ??? Being overweight. ??? Not getting enough exercise. ??? A family history of high cholesterol (familial hypercholesterolemia). ??? Use of tobacco products. ??? Having diabetes. What are the signs or symptoms? In most cases, high cholesterol does not usually cause any symptoms. In severe cases, very high cholesterol levels can cause: ??? Fatty bumps under the skin (xanthomas). ??? A white or scanlon ring around the black center (pupil) of the eye. How is this diagnosed? This condition may be diagnosed based on the results of a blood test. ??? If you are older than 20 years of age, your health care provider may check your cholesterol levels every 4?6 years. ??? You may be checked more often if you have high cholesterol or other risk factors for heart disease. The blood test for cholesterol measures: ??? Bad cholesterol, or LDL cholesterol. This is the main type of cholesterol that causes heart disease. The desired level is less than 100 mg/dL (2.59 mmol/L). ??? Good cholesterol, or HDL cholesterol. HDL helps protect against heart disease by cleaning the arteries and carrying the LDL to the liver for processing. The desired level for HDL is 60 mg/dL (1.55 mmol/L) or higher. ??? Triglycerides. These are fats that your body can store or burn for energy. The desired level is less than 150 mg/dL (1.69 mmol/L). ??? Total cholesterol. This measures the total amount of cholesterol in your blood and includes LDL, HDL, and triglycerides. The desired level is less than 200 mg/dL (5.17 mmol/L). How is this treated? Treatment for high cholesterol starts with lifestyle changes, such as diet and exercise. ??? Diet changes. You may be asked to eat foods that have more fiber and less saturated fats or added sugar. ??? Lifestyle changes. These may include regular exercise, maintaining a healthy weight, and quitting use of tobacco products. ??? Medicines. These are given when diet and lifestyle changes have not worked. You may be prescribed a statin medicine to help lower your cholesterol levels. Follow these instructions at home: Eating and drinking ??? Eat a healthy, balanced diet. This diet includes: ? Daily servings of a variety of fresh, frozen, or canned fruits and vegetables. ? Daily servings of whole grain foods that are rich in fiber. ? Foods that are low in saturated fats and trans fats. These include poultry and fish without skin, lean cuts of meat, and low-fat dairy products. ? A variety of fish, especially oily fish that contain omega-3 fatty acids. Aim to eat fish at least 2 times a week. ??? Avoid foods and drinks that have added sugar. ??? Use healthy cooking methods, such as roasting, grilling, broiling, baking, poaching, steaming, and stir-frying. Do not estrada your food except for stir- frying. ??? If you drink alcohol: ? Limit how much you have to: ? 0?1 drink a day for women who are not . ? 0?2 drinks a day for men. ? Know how much alcohol is in a drink. In the [place] one drink equals one 12 oz bottle of beer (355 mL), one 5 oz glass of wine (148 mL), or one 1? oz glass of hard liquor (44 mL). Lifestyle ??? Get regular exercise. Aim to exercise for a total of 150 minutes a week. Increase your activity level by doing activities such as gardening, walking, and taking the stairs. ??? Do not use any products that contain nicotine or tobacco. These products include cigarettes, chewing tobacco, and vaping devices, such as e-cigarettes. If you need help quitting, ask your health care provider. General instructions ??? Take wghn-iev-xgqawzo and prescription medicines only as told by your health care provider. ??? Keep all follow-up visits. This is important. Where to find more information ??? [place] [employer] Association: www.heart.org ??? National Heart, Lung, and Blood [place]: www.nhlbi.nih.gov Contact a health care provider if: ??? You have trouble achieving or maintaining a healthy diet or weight. ??? You are starting an exercise program. ??? You are unable to stop smoking. Get help right away if: ??? You have chest pain. ??? You have trouble breathing. ??? You have discomfort or pain in your jaw, neck, back, shoulder, or arm. ??? You have any symptoms of a stroke. BE FAST is an easy way to remember the main warning signs of a stroke: ? B - Balance. Signs are dizziness, sudden trouble walking, or loss of balance. ? E - Eyes. Signs are trouble seeing or a sudden change in vision. ? F - Face. Signs are sudden weakness or numbness of the face, or the face or eyelid drooping on one side. ? A - Arms. Signs are weakness or numbness in an arm. This happens suddenly and usually on one side of the body. ? S - Speech. Signs are sudden trouble speaking, slurred speech, or trouble understanding what people say. ? T - Time. Time to call emergency services. Write down what time symptoms started. ??? You have other signs of a stroke, such as: ? A sudden, severe headache with no known cause. ? Nausea or vomiting. ? Seizure. These symptoms may represent a serious problem that is an emergency. Do not wait to see if the symptoms will go away. Get medical help right away. Call your local emergency services (911 in the [place] Do not drive yourself to the hospital. Summary ??? Cholesterol plaques increase your risk for heart attack and stroke. Work with your health care provider to keep your cholesterol levels in a healthy range. ??? Eat a healthy, balanced diet, get regular exercise, and maintain a healthy weight. ??? Do not use any products that contain nicotine or tobacco. These products include cigarettes, chewing tobacco, and vaping devices, such as e-cigarettes. ??? Get help right away if you have any symptoms of a stroke. This information is not intended to replace advice given to you by your health care provider. Make sure you discuss any questions you have with your health care provider. Document Revised: 10/01/2022 Document Reviewed: 05/04/2021 [employer] Patient Education ? 2023 [employer]Orthopedics Bone Health Bones protect organs, store calcium, anchor muscles, and support the whole body. Keeping your bones strong is important, especially as you get older. You can take actions to help keep your bones strong and healthy. Why is keeping my bones healthy important? Keeping your bones healthy is important because your body constantly replaces bone cells. Cells get old, and new cells take their place. As we age, we lose bone cells because the body may not be able to make enough new cells to replace the old cells. The amount of bone cells and bone tissue you have is referred to as bone mass. The higher your bone mass, the stronger your bones. The aging process leads to an overall loss of bone mass in the body, which can increase the likelihood of: ??? Broken bones. ??? A condition in which the bones become weak and brittle (osteoporosis). A large decline in bone mass occurs in older adults. In women, it occurs about the time of menopause. What actions can I take to keep my bones healthy? Good health habits are important for maintaining healthy bones. This includes eating nutritious foods and exercising regularly. To have healthy bones, you need to get enough of the right minerals and vitamins. Most nutrition experts recommend getting these nutrients from the foods that you eat. In some cases, taking supplements may also be recommended. Doing certain types of exercise is also important for bone health. What are the nutritional recommendations for healthy bones? Eating a well-balanced diet with plenty of calcium and vitamin D will help to protect your bones. Nutritional recommendations vary from person to person. Ask your health care provider what is healthy for you. Here are some general guidelines. Get enough calcium Calcium is the most important (essential) mineral for bone health. Most people can get enough calcium from their diet, but supplements may be recommended for people who are at risk for osteoporosis. Good sources of calcium include: ??? Dairy products, such as low-fat or nonfat milk, cheese, and yogurt. ??? Dark green leafy vegetables, such as bok don and broccoli. ??? Foods that have calcium added to them (are fortified). Foods that may be fortified with calcium include orange juice, cereal, bread, soy beverages, and tofu products. ??? Nuts, such as almonds. Follow these recommended amounts for daily calcium intake: ??? Infants, 0?6 months: 200 mg. ??? Infants, 6?12 months: 260 mg. ??? Children, age 1?3: 700 mg. ??? Children, age 4?8: 1,000 mg. ??? Children, age 9?13: 1,300 mg. ??? Teens, age 14?18: 1,300 mg. ??? Adults, age 19?50: 1,000 mg. ??? Adults, age 51?70: ? Men: 1,000 mg. ? Women: 1,200 mg. ??? Adults, age 71 or older: 1,200 mg. ??? and females: ? Teens: 1,300 mg. ? Adults: 1,000 mg. Get enough vitamin D Vitamin D is the most essential vitamin for bone health. It helps the body absorb calcium. Sunlight stimulates the skin to make vitamin D, so be sure to get enough sunlight. If you live in a cold climate or you do not get outside often, your health care provider may recommend that you take vitamin D supplements. Good sources of vitamin D in your diet include: ??? Egg yolks. ??? Saltwater fish. ??? Milk and cereal fortified with vitamin D. Follow these recommended amounts for daily vitamin D intake: ??? Infants, 0?12 months: 400 international units (IU). ??? Children and teens, age 1?18: 600 international units. ??? Adults, age 59 or younger: 600 international units. ??? Adults, age 60 or older: 600?1,000 international units. Get other important nutrients Other nutrients that are important for bone health include: ??? Phosphorus. This mineral is found in meat, poultry, dairy foods, nuts, and legumes. The recommended daily intake for adult men and adult women is 700 mg. ??? Magnesium. This mineral is found in seeds, nuts, dark green vegetables, and legumes. The recommended daily intake for adult men is 400?420 mg. For adult women, it is 310?320 mg. ??? Vitamin K. This vitamin is found in green leafy vegetables. The recommended daily intake is 120 mcg for adult men and 90 mcg for adult women. What type of physical activity is best for building and maintaining healthy bones? Weight-bearing and strength-building activities are important for building and maintaining healthy bones. Weight-bearing activities cause muscles and bones to work against gravity. Strength-building activities increase the strength of the muscles that support bones. Weight-bearing and muscle-building activities include: ??? Walking and hiking. ??? Jogging and running. ??? Dancing. ??? Gym exercises. ??? Lifting weights. ??? Tennis and racquetball. ??? Climbing stairs. ??? Aerobics. Adults should get at least 30 minutes of moderate physical activity on most days. Children should get at least 60 minutes of moderate physical activity on most days. Ask your health care provider what type of exercise is best for you. How can I find out if my bone mass is low? Bone mass can be measured with an X-ray test called a bone mineral density (BMD) test. This test is recommended for all women who are age 65 or older. It may also be recommended for: ??? Men who are age 70 or older. ??? People who are at risk for osteoporosis because of: ? Having a long-term disease that weakens bones, such as kidney disease or rheumatoid arthritis. ? Having menopause earlier than normal. ? Taking medicine that weakens bones, such as steroids, thyroid hormones, or hormone treatment for breast cancer or prostate cancer. ? Smoking. ? Drinking three or more alcoholic drinks a day. ? Being underweight. ? Sedentary lifestyle. If you find that you have a low bone mass, you may be able to prevent osteoporosis or further bone loss by changing your diet and lifestyle. Where can I find more information? Bone Health & Osteoporosis Foundation: www.nof.org/patients ??? National Institutes of Health: www.bones.nih.gov ??? International Osteoporosis Foundation: www.iofbonehealth.org Summary ??? The aging process leads to an overall loss of bone mass in the body, which can increase the likelihood of broken bones and osteoporosis. ??? Eating a well-balanced diet with plenty of calcium and vitamin D will help to protect your bones. ??? Weight-bearing and strength-building activities are also important for building and maintaining strong bones. ??? Bone mass can be measured with an X-ray test called a bone mineral density (BMD) test. This information is not intended to replace advice given to you by your health care provider. Make sure you discuss any questions you have with your health care provider. Document Revised: 08/12/2021 Document Reviewed: 08/12/2021 [employer] Patient Education ? 2023 [employer].Osteoporosis Osteoporosis happens when the bones become thin and less dense than normal. Osteoporosis makes bones more brittle and fragile and more likely to break (fracture). Over time, osteoporosis can cause your bones to become so weak that they fracture after a minor fall. Bones in the hip, wrist, and spine are most likely to fracture due to osteoporosis. What are the causes? The exact cause of this condition is not known. What increases the risk? You are more likely to develop this condition if you: ??? Have family members with this condition. ??? Have poor nutrition. ??? Use the following: ? Steroid medicines, such as prednisone. ? Anti-seizure medicines. ? Nicotine or tobacco, such as cigarettes, e-cigarettes, and chewing tobacco. ??? Are female. ??? Are age 50 or older. ??? Are not physically active (are sedentary). ??? Are of or descent. ??? Have a small body frame. What are the signs or symptoms? A fracture might be the first sign of osteoporosis, especially if the fracture results from a fall or injury that usually would not cause a bone to break. Other signs and symptoms include: ??? Pain in the neck or low back. ??? Stooped posture. ??? Loss of height. How is this diagnosed? This condition may be diagnosed based on: ??? Your medical history. ??? A physical exam. ??? A bone mineral density test, also called a DXA or DEXA test (dual-energy X- ray absorptiometry test). This test uses X-rays to measure the amount of minerals in your bones. How is this treated? This condition may be treated by: ??? Making lifestyle changes, such as: ? Including foods with more calcium and vitamin D in your diet. ? Doing weight-bearing and muscle-strengthening exercises. ? Stopping tobacco use. ? Limiting alcohol intake. ??? Taking medicine to slow the process of bone loss or to increase bone density. ??? Taking daily supplements of calcium and vitamin D. ??? Taking hormone replacement medicines, such as estrogen for women and testosterone for men. ??? Monitoring your levels of calcium and vitamin D. The goal of treatment is to strengthen your bones and lower your risk for a fracture. Follow these instructions at home: Eating and drinking Include calcium and vitamin D in your diet. Calcium is important for bone health, and vitamin D helps your body absorb calcium. Good sources of calcium and vitamin D include: ??? Certain fatty fish, such as salmon and tuna. ??? Products that have calcium and vitamin D added to them (are fortified), such as fortified cereals. ??? Egg yolks. ??? Cheese. ??? Liver. Activity Do exercises as told by your health care provider. Ask your health care provider what exercises and activities are safe for you. You should do: ??? Exercises that make you work against gravity (weight-bearing exercises), such as quintin chi, yoga, or walking. ??? Exercises to strengthen muscles, such as lifting weights. Lifestyle ??? Do not drink alcohol if: ? Your health care provider tells you not to drink. ? You are , may be , or are planning to become . ??? If you drink alcohol: ? Limit how much you use to: ? 0?1 drink a day for women. ? 0?2 drinks a day for men. ??? Know how much alcohol is in your drink. In the [place] one drink equals one 12 oz bottle of beer (355 mL), one 5 oz glass of wine (148 mL), or one 1? oz glass of hard liquor (44 mL). ??? Do not use any products that contain nicotine or tobacco, such as cigarettes, e-cigarettes, and chewing tobacco. If you need help quitting, ask your health care provider. Preventing falls ??? Use devices to help you move around (mobility aids) as needed, such as canes, walkers, scooters, or crutches. ??? Keep rooms well-lit and clutter-free. ??? Remove tripping hazards from walkways, including cords and throw rugs. ??? Install grab bars in bathrooms and safety rails on stairs. ??? Use rubber mats in the bathroom and other areas that are often wet or slippery. ??? Wear closed-toe shoes that fit well and support your feet. Wear shoes that have rubber soles or low heels. ??? Review your medicines with your health care provider. Some medicines can cause dizziness or changes in blood pressure, which can increase your risk of falling. General instructions ??? Take hawe-hds-skvyjyq and prescription medicines only as told by your health care provider. ??? Keep all follow-up visits. This is important. Contact a health care provider if: ??? You have never been screened for osteoporosis and you are: ? A woman who is age 65 or older. ? A man who is age 70 or older. Get help right away if: ??? You fall or injure yourself. Summary ??? Osteoporosis is thinning and loss of density in your bones. This makes bones more brittle and fragile and more likely to break (fracture),even with minor falls. ??? The goal of treatment is to strengthen your bones and lower your risk for a fracture. ??? Include calcium and vitamin D in your diet. Calcium is important for bone health, and vitamin D helps your body absorb calcium. ??? Talk with your health care provider about screening for osteoporosis if you are a woman who is age 65 or older, or a man who is age 70 or older. This information is not intended to replace advice given to you by your health care provider. Make sure you discuss any questions you have with your health care provider. Document Revised: 08/14/2020 Document Reviewed: 08/14/2020 [employer] Patient Education ? 2023 Elsevier Inc. ALLERGIES DATE TYPE / CODE NAME / CODE REACTION SEVERITY SOURCE 11/23/2023 DRUG/36512062 3(SNOMED CT) POISON LIANG Rash [facility] Ambulatory /[id number]( SNOMED CT) No Known Allergies [facility] DR/[id number]( SNOMED CT) No Known Medication Allergies [facility] EN/[id number]( SNOMED CT) Poison Liang Moderate (Severity Modifier) (Qualifier Value) [facility] ENCOUNTERS ADMIT/DISCHARGE ACCOUNT NUMBER ADMITTING ENCOUNTER CLASS LOCATION SOURCE 07/03/2024/ 5 [id number] Ambulatory Building:[facility] EPIC 07/02/2024/ 5 [id number] Ambulatory Building:[address] Ambulatory 06/06/2024/ 5 [id number] Ambulatory [facility] [place] [facility] 05/22/2024/ 5 [id number] Ambulatory [facility] [place]:FT [facility] 02/02/2024/ 4 [id number] Ambulatory [facility] [facility] : CD:[id number] 1 [facility] 01/31/2024 [id number] Ambulatory [facility] [place]:FT [facility] 01/30/2024/ 4 [id number] Ambulatory [facility] 11/23/2023/ 4 [id number] Ambulatory Building:DOS [address] Ambulatory PAYERS ENCOUNTER GUARANTOR PAYER SUBSCRIBER SOURCE 07/03/2024 HALIE SHAFFER: [place] [address]Wel: () Primary Insurance:UNITED HEALTHCARE MEDICAREPolicy Number: [id number] Date:2022-03-14 HALIE SHAFFER: [id number] [place] [address] [facility] EPIC 07/02/2024 HALIE MATTB: [place] [address]Dko: (HP) Primary Insurance:[facility] COMPLETEPolicy Number: [id number] Date:2023-03-14 HALIE MATTB: [id number] [place] [address]Kuv: (HP) [facility] 06/06/2024 HALIE MATTDOB: CINDY STTel: ~~(4 1 (HP) [facility] Insurance:[facility] CAREPolicy Number: [id number] Date:2023-05-19 HALIE [facility] 05/22/2024 HALIE MATTDOB: [id number] CINDY STTel: ~~(4 1 (HP) [facility]: [id number] Date:2023-05-19 HALIE [facility] 02/02/2024 HALIE MATTDOB: CINDY STTel: ~~(4 1 (HP) Primary Insurance:[facility] Number: [id number] Date:2023-05-19 HALIE [facility] 01/31/2024 HALIE MATTB: [id number] CINDY STTel: ~~(4 1 (HP) Primary Insurance:[facility] Number: [id number] Date:2023-05-19 HALIE [facility] 01/30/2024 HALIE MATTDOB: [id number] CINDY STTel: ~~(4 1 (HP) Primary Insurance:[facility] Number: [id number] Date:2022-03-14 HALIE [facility] 11/23/2023 HALIECHERYL MATTB: [place], [place] [address]Gve: () Primary Insurance:[facility] DUAL COMPLETEPolicy Number: [id number] Date:2023-03-14 HALIE MATTDOB: [id number] [place], [place] [address]Ndr: () [facility]
--- OUTSIDE RECORDS SUMMARY | 2024-07-03 11:07 | XMS_ITS ---
Author Name Auto Generated Organization OHIP Care Team Providers Care Director [facility] Name Role Phone DAIANA SYED Attending Unavailable STACY GRAMAJO Primary Care Unavailable DAIANA SYED Attending Unavailable STACY GRAMAJO Primary Care Unavailable MELISSA DE SANTIAGO Attending Unavailable Charu, Chiara Fuentes Attending Unavailable Charu, Chiara Fuentes Attending Unavailable Charu, Chiara Fuentes Attending Unavailable Charu, Chiara Fuentes Attending Unavailable Charu, Chiara Fuentes Attending Unavailable PROBLEMS DATE TYPE CONDITION / CODE ATTENDING STATUS [facility] RCE 07/02/2024 Admitting Diagnosis MUCOUS BUILD UP / UNK(Unknown) DAIANA SYED [facility] Ambulatory 11/23/2023 Admitting Diagnosis Hoarseness / FREETEXT() DAIANA SYED [facility] Ambulatory PROCEDURES No Procedure Records Found RESULTS FAMILY MEDICINE OFFICE/CLINI C NOTE Observed: 06/06/2024 11:37 AM Status: F Source: [facility] Family Medicine Office/Clini c Note HPI Staff [...] Observed: 06/06 11:37 AM Status: F Source: [facility] Ambulatory Visit Summary HALIE MATT :1950 Visit [...] 10:20 AM EST With: Chiara Rainey Where: [address] [address]- Tuesday 11:00 AM EST With: Where: [address] [id number]- Medications What How Much When Why Instructions [...] Observed: 05/22/2024 3:26 PM Status: F Source: [facility] Medicine Office/Clini c Note HPI Staff Halie [...] day(s), # 15 cap(s), Refills(s) 0, Pharmacy: [facility]/pharmacy #[id number], 160, cm, 03/11/25 14:41:00 EDT, Height/Length Dosing, 61.3, kg, 05/22/24 14:41:00 EDT, Weight Dosing triamcinolone topical, 1 joel, Topical, TID, 15 gram, Refill(s) 0, apply a thin film to affected area[id number], cm, 05/22/24 14:41:00 EDT, Height/Length Dosing, 61.3, kg, 05/22/24 14:41:00 EDT, Weight Dosing 4. Non-smoker (Z78.9: Other specified health status) continue not smoking Ordered: cephalexin, 500 mg = 1 cap(s), Oral, TID, X 5 day(s), # 15 cap(s), Refills(s) 0, [id number] 160, cm, 05/22/24 14:41:00 EDT, Height/Length Dosing, 61.3, kg, 05/22/24 14:41:00 EDT, Weight Dosing triamcinolone topical, 1 joel, Topical, TID, 15 gram, Refill(s) 0, apply a thin film to affected area, [id number], cm, 05/22/24 14:41:00 EDT, Height/Length [...] Observed: 02/01 2:23 PM Status: F Source: [facility] Ambulatory Visit Summary HALIE MATT :1950 Visit [...] 10:20 AM EST With: Chiara Rainey Where: [address] [address]- Tuesday 11:00 AM EST With: Where: [address] [address]- Medications What How Much When Why Instructions New ibuprofen (ibuprofen 600 mg Tab) 1 Tablets By Mouth Every 6 hours Duration: 90 Days Refills: 3 as needed, take with food Pickup at [facility]/pharmacy #[id number] New loratadine (Claritin 10 mg Tab) 1 Tablets By Mouth Every day Hypercholesterolemia Major depressive disorder, recurrent episode, mild Colonoscopy refused Allergic rhinitis, mild Non-smoker BMI 24.0-24.9, adult Pickup at [facility]/pharmacy #[id number] Unchanged biotin (biotin 5000 mcg oral capsule) [...] gluconate 15 mg oral tablet) Pharmacy Information [facility]/pharmacy #[id number]: [address], [place] [phone] Allergies Poison Liang No Known Medication Allergies [...] Observed: 02/02/2024 2:20 PM Status: F Source: [facility] Medicine Office/Clini c Note HPI Staff Pt [...] Daily, # 90 tab(s), Refills(s) 0, Pharmacy: [facility]/pharmacy #[id number], 160, cm, 02/02/24 13:48:00 EST, Height/Length Dosing, 61.8, kg, 02/02/24 13:48:00 EST, Weight Dosing 2. Major depressive disorder, recurrent episode, mild (F33.0: Major depressive disorder, recurrent, mild) stable at this time Ordered: loratadine, 10 mg = 1 tab(s), Oral, Daily, # 90 tab(s), Refills(s) 0, Pharmacy: [facility]/pharmacy #[id number], 160, cm, 02/02/24 13:48:00 EST, Height/Length Dosing, 61.8, kg, 02/02/24 13:48:00 EST, Weight Dosing 3. Colonoscopy refused (Z53.20: Procedure and treatment not carried out because of patient's decision for unspecified reasons) discussed colonoscopy. pt still declines at this time. Ordered: alendronate, 70 mg = 1 tab(s), Oral, q7day, # 12 tab(s), Refills(s) 0, Pharmacy: [facility]/pharmacy #[id number], 160, cm, 01/27/23 14:22:00 EST, Height/Length Dosing, 69.1, kg, 01/27/23 14:22:00 EST, Weight Dosing loratadine, 10 mg = 1 tab(s), Oral, Daily, # 90 tab(s), Refills(s) 0, Pharmacy: [facility]/pharmacy #[id number], 160, cm, 02/02/24 13:48:00 EST, Height/Length Dosing, 61.8, kg, 02/02/24 13:48:00 EST, Weight Dosing 4. Allergic rhinitis, mild (J30.9: Allergic rhinitis, unspecified) Claritin sent to pharmacy. pt declines Flonase Ordered: loratadine, 10 mg = 1 tab(s), Oral, Daily, # 90 tab(s), Refills(s) 0, Pharmacy: [facility]/pharmacy #[id number], 160, cm, 02/02/24 13:48:00 EST, Height/Length Dosing, 61.8, kg, 02/02/24 13:48:00 EST, Weight Dosing 5. Non-smoker (Z78.9: Other specified health status) continue not smoking Ordered: loratadine, 10 mg = 1 tab(s), Oral, Daily, # 90 tab(s), Refills(s) 0, Pharmacy: [facility]/pharmacy #[id number], 160, cm, 02/02/24 13:48:00 EST, Height/Length Dosing, 61.8, kg, 02/02/24 13:48:00 EST, Weight Dosing 6. BMI 24.0-24.9, adult (Z68.24: Body mass index [BMI] 24.0-24.9, adult) bmi education Ordered: loratadine, 10 mg = 1 tab(s), Oral, Daily, # 90 tab(s), Refills(s) 0, [id number], 160, cm, 02/02/24 13:48:00 EST, Height/Length Dosing, 61.8, kg, 02/02/24 13:48:00 EST, Weight Dosing Orders: ibuprofen, 600 mg = 1 tab(s), Oral, q6hr, as needed, take with food, X 90 day(s), # 90 tab(s), Refills(s) 3, [id number], 160, cm, 02/02/24 13:48:00 EST, Height/Length Dosing, 61.8, kg, 02/02/24 13:48:00 EST, Weight Dosing ibuprofen, 600 mg = 1 tab(s), Oral, q6hr, as needed, take with food, # 90 tab(s), Refills(s) 5, [id number], 160, cm, 01/27/23 14:22:00 EST, Height/Length [...] Observed: 01/29 1:39 PM Status: F Source: [facility] Ambulatory Visit Summary HALIE MATT :1950 Visit [...] Appointments Tuesday 9:00 AM EST With: Where: [address] [address] 2023 1:40 PM EST With: Chiara Rainey Where: [address] [address]- Tuesday 11:00 AM EST With: Where: [address] [address]- You Need to Complete the Following Lipid [...] provider. Document Revised: 08/12/2021 Document Reviewed: 08/12/2021 [employer] Patient Education ??? 2023 [employer]. Osteoporosis Osteoporosis happens when the bones [...] risk of falling. General instructions ??? Take eoyk-rvc-qaphkvo and prescription medicines only as told by [...] Reviewed: 08/14/2020 Elsevier Patient Education ??? 2023 [employer]. Heartburn Heartburn is a type of [...] vinegar, hot sauces, and barbecue sauce. ? Gaston fruit juices and citrus fruits, such as oranges, nikita, and limes. ? Tomato-based foods, such as red sauce, chili, salsa, and pizza with red sauce. ? Fried and fatty foods, such as donuts, gibraltarian fries, potato chips, and high-fat dressings. ? [...] your health care provider. Medicines ??? Take cbhj-kxa-cauagbs and prescription medicines only as told by [...] by your health care provider. ??? Take mtqa-gts-udifaqp and prescription medicines only as told by [...] Reviewed: 09/03/2020 Elsevier Patient Education ??? 2023 [employer]. High Cholesterol High cholesterol is a condition [...] health care provider. General instructions ??? Take vxmw-sdn-muuocdq and prescription medicines only as told by your health care provider. ??? Keep all follow-up visits. This is important. Where to find more information ??? [place] [employer]: www.heart.org ??? National Heart, Lung, and Blood [place]: www.nhlbi.nih.gov Contact a health care provider if: [...] provider. Document Revised: 10/01/2022 Document Reviewed: 05/04/2021 [employer] Patient Education ??? 2023 [employer]. Heart Attack A heart attack occurs when blood and oxygen supply to the heart is cut off. A heart attack can cause damage to the heart that cannot be fixed. A heart attack is also called a myocardial infarction, or GA. If you think you are having a [...] these instructions at home: Medicines ??? Take guip-vue-lxerhln and prescription medicines only as told by [...] Reviewed: 08/20/2021 Scotty Patient Education ??? 2023 [employer]. PATIENT EDUCATION Observed: 01/30/2024 1:39 PM Status: C Source: [facility] Patient Education Emergency Medicine Heart Attack A heart attack occurs when blood and oxygen supply to the heart is cut off. A heart attack can cause damage to the heart that cannot be fixed. A heart attack is also called a myocardial infarction, or GA. If you think you are having a [...] these instructions at home: Medicines ??? Take evtq-niy-wefxmff and prescription medicines only as told by [...] provider. Document Revised: 08/20/2021 Document Reviewed: 08/20/2021 [employer] Patient Education ? 2023 [employer] Inc.Gastroenterology Heartburn Heartburn is a type of [...] vinegar, hot sauces, and barbecue sauce. ? [place]aston fruit juices and citrus fruits, such as oranges, nikita, and limes. ? Tomato-based foods, such as red sauce, chili, salsa, and pizza with red sauce. ? Fried and fatty foods, such as donuts, gibraltarian fries, potato chips, and high- fat dressings. [...] your health care provider. Medicines ??? Take taov-vvu-txqhaks and prescription medicines only as told by [...] by your health care provider. ??? Take uozu-pyb-tjthsul and prescription medicines only as told by [...] provider. Document Revised: 09/03/2020 Document Reviewed: 09/03/2020 [employer] Patient Education ? 2023 [employer].Nutrition High Cholesterol High cholesterol is a condition [...] health care provider. General instructions ??? Take kqon-tje-mjuuyrj and prescription medicines only as told by your health care provider. ??? Keep all follow-up visits. This is important. Where to find more information ??? [place] [employer]: www.heart.org ??? National Heart, Lung, and Blood [place]: www.nhlbi.nih.gov Contact a health care provider if: [...] Reviewed: 05/04/2021 Elsevier Patient Education ? 2023 [employer] Inc.Orthopedics Bone Health Bones protect organs, store [...] provider. Document Revised: 08/12/2021 Document Reviewed: 08/12/2021 [employer] Patient Education ? 2023 [employer].Osteoporosis Osteoporosis happens when the bones become thin [...] risk of falling. General instructions ??? Take rirr-eqx-ndebeew and prescription medicines only as told by [...] provider. Document Revised: 08/14/2020 Document Reviewed: 08/14/2020 [employer] Patient Education ? 2023 Elsevier Inc. ALLERGIES DATE TYPE / CODE NAME / CODE REACTION SEVERITY SOURCE 11/23/2023 DRUG/30857047 3(SNOMED CT) POISON LIANG Rash [facility] Ambulatory /217267875( SNOMED CT) No Known Allergies [facility] DR/090804734( SNOMED CT) No Known Medication Allergies [facility] EN/283841477( SNOMED CT) Poison Liang Moderate (Severity Modifier) (Qualifier Value) [facility] ENCOUNTERS ADMIT/DISCHARGE ACCOUNT NUMBER ADMITTING ENCOUNTER CLASS LOCATION SOURCE 07/03/2024/ 5 [id number] Ambulatory Building:[facility] EPIC 07/02/2024/ 5 [id number] Ambulatory Building:[address] Ambulatory 06/06/2024/ 5 [id number] Ambulatory [facility] [place] 05/22/2024/ 5 [id number] Ambulatory [facility] [place] [facility] 02/02/2024/ 4 [id number] Ambulatory [facility] [facility] : CD:[id number] [facility] 01/31/2024 [id number] Ambulatory FT [facility] [place] [facility]:FT [facility] 01/30/2024/ 4 [id number] Ambulatory [facility] [place]:[facility] 11/23/2023/ 4 [id number] Ambulatory Building:DOS [address] Ambulatory PAYERS ENCOUNTER GUARANTOR PAYER SUBSCRIBER SOURCE 07/03/2024 HALIE SHAFFER: [place] [address]Cdf: () Primary Insurance:UNITED HEALTHCARE MEDICAREPolicy Number: [id number] Date:2022-03-14 HALIE SHAFFER: [id number] [place] [address] [facility] EPIC 07/02/2024 HALIE MATTB: [place] [address]Emc: (HP) Primary Insurance:[facility] COMPLETEPolicy Number: [id number] Date:2023-03-14 HALIE MATTB: [id number] [place] [address]Omr: (HP) [facility] 06/06/2024 HALIE MATTDOB: CINDY STTel: ~~(4 1 (HP) Primary Insurance:[facility] C[facility] Number: [id number] Date:2023-05-19 HALIE [facility] 05/22/2024 HALIE MATTDOB: [id number] CINDY STTel: ~~(4 1 (HP) Primary Insurance:[facility] HEALTHPolicy Number: [id number] Date:2023-05-19 HALIE [facility] 02/02/2024 HALIE MATTDOB: CINDY STTel: ~~(4 1 (HP) Primary Insurance:[facility] HEALTHPolicy Number: [id number] Date:2023-05-19 HALIE [facility] 01/31/2024 HALIE MATTB: [id number] CINDY STTel: ~~(4 1 (HP) Primary Insurance:[facility] HEALTHPolicy Number: [id number] Date:2023-05-19 HALIE [facility] 01/30/2024 HALIE MATTDOB: [id number] CINDY STTel: ~~(4 1 (HP) Primary Insurance:[facility] HEALTHPolicy Number: [id number] Date:2022-03-14 HALIE [facility] 11/23/2023 HALIECHERYL MATTB: [place], [place] [address]Dra: () Primary Insurance:[facility] DUAL COMPLETEPolicy Number: [id number] Date:2023-03-14 HALIE MATTDOB: [id number] [place], [place] [address]Kge: () [facility]
[2024-09-17] VITALS (17 sets, daily range): BP systolic 139–190; BP diastolic 74–89; PULSE 72–99; TEMP 36.6–36.9; O2SAT 93–100; BMI 25.4; BMI 22.0
--- OUTSIDE RECORDS SUMMARY | 2024-09-17 10:16 | XMS_ITS | Clinical Summary ---
Author Organization [facility] Address [address] [place], [place] [address] Care Team Providers Care Grain Farmer Name Role Phone Arnaldo Ward Primary Care Provider Allergies No known active allergies Medications atorvastatin calcium(LIPITOR 10 MG TAB) Take one(1) tablet daily. 0 9 Active lansoprazole(FL EVACID 15 MG CAP) Take one(1) capsule daily. 0 9 Active methylprednisol one(MEDROL (VICTOR HUGO) 4 MG TABS IN A DOSE PACK)Indication s:Low back pain radiating to left leg Take as directed 1 unit 0 9 Active Additional Information Patient not taking.Reason: Course of Therapy Completed, Reported on 01/18/2019 ibuprofen(MOTRI N 800 MG TAB)Indications :Low back pain radiating to left leg Take 1 every 8 hours with food 90 12 Active Additional Information Patient not taking.Reason: Course of Therapy Completed, Reported on 01/18/2019 tramadol hcl(ULTRAM 50 MG TAB)Indications :Low back pain radiating to left leg Take 1/2 or 1 every 3 to 4 hours as needed for pain 90 6 9 Active Additional Information Patient not taking.Reason: Course of Therapy Completed, Reported on 01/18/2019 omeprazole magnesium (PRILOSEC ORAL) Take by mouth. Active Active Problems Problem Noted Date Diagnosed Date Low back pain radiating to left leg 10/31/2008 Social History Tobacco Use Types Packs/Day Years Used Date Smoking Tobacco: Never Assessed Area Deprivation Index Answer Date Tremayne rded National Score (1-100), lower number is lower ri sk Not on file 02/18/2020 State Score (1-10), lower number is lower risk N ot on file 02/18/2020 Data from: https://www.neighborhoodatlas.medicine.[facility]/. Last address used for calculation Not on file 02/18/2020 Comments No Sex and Gender Information Value Date Recorded Sex Assigned at Not on file Legal Sex Female 8:21 AM EST Gender Identity Not on file Sexual Orientation Not on file Last Filed Vital Signs Vital Sign Reading Time Taken Comments Blood Pressure - - Pulse - - Temperature - - Respiratory Rate - - Oxygen Saturation - - Inhaled Oxygen Concentration - - Weight 81.7 kg (180 lb 3.2 oz) 10/31/2008 11:45 AM EDT Height 165.1 cm (5' 5 ) 10/31/2008 11:45 AM EDT Body Mass Index 29.99 10/31/2008 11:45 AM EDT Plan of Treatment Health Maintenance Due Date Last Done Comments Anxiety Screening 1967 Depression Screening 1967 Hepatitis C Screening 1967 DTaP,Tdap,Td Vaccine (1 - Tdap) 1968 CT Colonography 1994 Cologuard (FIT-DNA) 1994 Colonoscopy 1994 Colorectal Cancer Screening 1994 Diabetes Screening 1994 Fecal Occult Blood 1994 Lipid Screening 1994 Sigmoidoscopy 1994 Pneumococcal Vaccine: 50+ (1 of 1 - PCV) 1999 Shingrix Vaccine (1 of 2) 1999 Bone Density Screening 2014 Covid-19 Vaccine (1 - 2023- season) 2023 Advance Directive Discussion 03/14/2024 RSV Vaccine (1 - 1-dose 75+ series) 2024 Influenza Vaccine (#1) 2024 [place] [address] Care Teams Grain Farmer Relationship Specialty Start Date End Date Arnaldo Ward [address] [place] [id number] PCP - General 10/29/08
--- OUTSIDE RECORDS SUMMARY | 2024-09-17 10:16 | XMS_ITS | Clinical Summary ---
Author Organization [facility] Address [address] [place] [address] Phone Care Team Providers Care Cell Efficiency Supervisor Name Role Phone Daria Vazquez MD Primary Care Provider [phone] Allergies Active Allergy Reactions Criticality Noted Date Comments Poison Kaycee Rash Low 11/23/2023 Medications ipratropium (Atrovent) 42 mcg (0.06 %) nasal sprayIndication s:Other diseases of vocal cords,Postnasal drip Administer 2 sprays into each nostril 2 times a day. 15 mL 2 Active Active Problems Problem Noted Date Diagnosed Date Postnasal drip 07/02/2024 Other diseases of vocal cords 11/23/2023 Encounters Date Type Department Care Team Description 07/02/2024 4:00 PM EDT Office Visit [facility] [address] [address] Byron Meneses MD Other diseases of vocal cords (Primary Dx); Postnasal drip 07/02/2024 Travel 07/01/2024 Travel from Last 3 Months Social History Tobacco Use Types Packs/Day Years Used Date Smoking Tobacco: Never Smokeless Tobacco: Never Tobacco Cessation:Counseling Given: Not Answered Comments Unknown Sex and Gender Information Value Date Recorded Sex Assigned at Not on file Legal Sex Female 11:42 AM EST Gender Identity Not on file Sexual Orientation Not on file Last Filed Vital Signs Vital Sign Reading Time Taken Comments Blood Pressure - - Pulse - - Temperature - - Respiratory Rate - - Oxygen Saturation - - Inhaled Oxygen Concentration - - Weight 61.2 kg (135 lb) 11/23/2023 2:39 PM EDT Height 157.5 cm (5' 2 ) 11/23/2023 2:39 PM EDT Body Mass Index 24.69 11/23/2023 2:39 PM EDT Plan of Treatment Health Maintenance Due Date Last Done Comments Bone Density Scan 1950 CT Colonography 1950 Colonoscopy 1950 Colorectal Cancer Screening 1950 FIT-DNA (Cologuard) 1950 FIT 1950 Lipid Panel 1950 Medicare Annual Wellness Vis it (AWV) 1950 Sigmoidoscopy 1950 Hepatitis C Screening 1967 DTaP/Tdap/Td Vaccines (1 - Tdap) 1971 Pneumococcal Vaccine (1 of 1 - PCV) 1999 Zoster Vaccines (1 of 2) 1999 COVID-19 Vaccine (1 - 2023-2 5 season) 2023 RSV High Risk: (Elderly (60+ ) or Population) (1 - 1-dose 75+ series) 2024 Influenza Vaccine (#1) 2024 HIB Vaccines Aged Out No longer eligi ble based on patient's age to complete this topic HPV Vaccines (No Doses Required) Completed Hepatitis A Vaccines Aged Out No long er eligible based on patient's age to complete this topic Hepatitis B Vaccines Aged Out No long er eligible based on patient's age to complete this topic IPV Vaccines Aged Out No longer eligi ble based on patient's age to complete this topic Meningococcal Vaccine Aged Out No vanessa nunu eligible based on patient's age to complete this topic Rotavirus Vaccines Aged Out No longer eligible based on patient's age to complete this topic Insurance [facility] DUAL COMPLETE [facility] DUAL COMPLETE Care Teams Cell Efficiency Supervisor Relationship Specialty Start Date End Date Daria Vazquez MD [address] [place] [address] PCP - General 07/31/19
--- OUTSIDE RECORDS SUMMARY | 2024-09-17 10:16 | XMS_ITS | Clinical Summary ---
Author Organization [facility] Address [address] [place] [address] Care Team Providers Care Superintendent Building Name Role Phone Daria Vazquez MD Primary Care Provider [phone] Allergies No known active allergies Medications omeprazole OTC (PriLOSEC OTC) 20 MG EC tablet 1 (one) time each day at the same time. Active ibuprofen 600 MG tablet Take 600 mg by mouth. 3 Active calcium carbonate (Os-Danis) 1250 (500 Ca) MG tablet every 12 (twelve) hours. Active Fish Oil-Cholecalcif oral (Fish Oil-Vitamin D) 1452-3380 MG-UNIT capsule 1 (one) time each day at the same time. Active Zinc Sulfate (ZINC 15 PO) Zinc 15 Active VIT C-CHOLECALCIFER OL-KING HIP PO Vit C-Cholecalcifero l-King Hip Active VIT B6-VIT W48-AZFTU 3 ACIDS PO Vit B6-Vit H33-Gvogs 3 Acids Active biotin 2.5 MG capsule 1 capsule 1 (one) time each day at the same time. Active Efinaconazole (Jublia) 10 % solutionIndicat ions:Onychomyco sis Apply 1 application topically Daily 10 mL 3 5 10/02/19 25 Active Active Problems Problem Noted Date Diagnosed Date Onychomycosis 09/01/2022 Pain in both feet 09/01/2022 Encounters Date Type Department Care Team Description 07/10/2024 Telephone [facility] [address] [place] [phone] Margoth Haq MA Alternative Rx 07/03/2024 11:15 AM EDT Office Visit [facility] [address] [place] [address] Madeleine Hill DPM Onychomycosis (Primary Dx); Pain in both feet 07/03/2024 Bamboo flowsheet [facility] [address] [place] [address] Madeleine Hill DPM 07/03/2024 Travel from Last 3 Months Family History Medical History Relation Name Comments Heart disease Father Heart disease Mother Heart disease Other Relation Name Status Comments Father Mother Other Social History Tobacco Use Types Packs/Day Years Used Date Smoking Tobacco: Never Smokeless Tobacco: Never Tobacco Cessation:Counseling Given: Not Answered Alcohol Use Standard Drinks/Week Comments Yes 0 (1 standard drink = 0.6 oz pur e alcohol) Comments Unknown Sex and Gender Information Value Date Recorded Sex Assigned at Not on file Legal Sex Female 6:39 PM EDT Gender Identity Not on file Sexual Orientation Not on file Last Filed Vital Signs Vital Sign Reading Time Taken Comments Blood Pressure 142/88 02/14/2018 12:00 PM EST Pulse - - Temperature - - Respiratory Rate - - Oxygen Saturation - - Inhaled Oxygen Concentration - - Weight 70.3 kg (155 lb) 02/14/2018 12:00 PM EST Height 160 cm (5' 3 ) 02/14/2018 12:00 PM EST Body Mass Index 27.46 02/14/2018 12:00 PM EST Plan of Treatment Upcoming Encounters Date Type Department Care Team (Late st Contact Info) Description 10/02/2024 11:15 AM EDT Office Visit [facility] [address] [place] [phone] Madeleine Hill DPM [address] [place] [address] [place] [address] [employer] MEDICARE Care Teams Superintendent Building Relationship Specialty Start Date End Date Daria Vazquez MD [address] [facility] [place] [phone] PCP - General Family Medicine 09/01/22
--- NOTE | 2024-09-17 10:19 | ECG_ITS ---
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 Measurements Intervals Candor Rate: 77 P: 45 AR: 128 QRS: 61 QRSD: 146 T: 258 QT: 420 QTc: 451 Interpretive Statements 1100 Sinus rhythm LEFT BUNDLE BRANCH BLOCK 9150 abnormal ECG Compared to ECG 05/20/2023 07:11:58 No significant changes Electronically Signed On 09-17-2024 20:42:41 EDT by CHILO HINSON M.D.
[2024-09-17 10:34] LABS: Hematocrit 30.9 % (36.0-48.0); Hemoglobin 9.3 g/dL (12.0-16.0); Immature Granulocytes Abs Auto 0.07 10^3/uL (0.00-0.03); Immature Granulocytes Pct Auto 0.6 % (0.0-0.5); Lymphocytes Absolute Auto 1.6 10^3/uL (1.2-3.8); Mean Corpuscular HGB Conc 30.1 g/dL (29.9-35.2); Mean Corpuscular Hemoglobin 23.3 pg (26.7-34.0); Mean Corpuscular Volume 77.3 fL (81.0-99.0); Platelet Count 339 10^3/uL (150-450); Red Blood Count 4.00 10^6/uL (4.20-5.40); White Blood Count 12.1 10^3/uL (4.0-11.0)
--- NOTE | 2024-09-17 10:42 | XR_ITS ---
The [address] [address] Patient Name: ANA MATT MRN: [id number] date: 1950 Sex: F Assigned Patient Location: ER Current Patient Location: ER Accession/Order Number: [id number] Exam Date: 09/17/2024 11:35 Report Date: 09/17/2024 11:35 At the request of: BENNIE HENDERSON MD Procedure: XR chest 1V XR chest 1V 09/17/2024 10:55 AM SIGNS AND SYMPTOMS: Gastric pain radiating to back PROTOCOL: Frontal radiograph of the chest COMPARISON: 06/01/2023 FINDINGS: The trachea is midline. The heart and mediastinal structures are within normal limits. The lung parenchyma is clear. The bony thorax is intact. XR/XR chest 1V IMPRESSION: No acute cardiopulmonary pathology. Impression dictated by: Aashish Hallman M.D. 09/17/2024 11:35 AM Dictation Location: [place] [address] Electronically authenticated by: [id number] Y Date: 09/17/2024 11:35
[2024-09-17 10:43] LABS: Lipase 43.0 U/L (16.0-77.0)
[2024-09-17] MEDS: FAMOTIDINE/PF 20 MG/2 ML VIAL IV (10:50)
[2024-09-17] MEDS: MORPHINE SULFATE 2 MG/ML SYRINGE IV (10:50)
[2024-09-17 10:52] LABS: Alanine Aminotransferase 35 U/L (14-59); Albumin Globulin Ratio 0.7; Albumin Level 3.0 g/dL (3.4-5.0); Alkaline Phosphatase 142 U/L (46-116); Anion Gap 13.5; Aspartate Amino Transferase 112 U/L (15-37); Blood Urea Nitrogen 17.0 mg/dL (7.0-18.0); Calcium 9.5 mg/dL (8.5-10.1); Carbon Dioxide 24.8 mmol/L (21.0-32.0); Chloride 104 mmol/L (98-107); Estimated GFR (African America >60 (>=60 mL/min/1.73m^2); Estimated GFR (Non-African Ame >60 (>=60 mL/min/1.73m^2); Globulin 4.6 g/dL; Glucose 102 mg/dL (74-106); Potassium 3.3 mmol/L (3.5-5.1); Sodium 139 mmol/L (136-145); Total Protein 7.6 g/dL (6.4-8.2)
--- NOTE | 2024-09-17 10:52 | ED.ABDPAIN1 ---
HPI - Abdominal Pain General Chief Complaint: Abdominal Pain Stated Complaint: PAIN IN STOMACH AND AROUND TO THE BACK Time Seen by Provider: 09/17/24 10:17 Source: patient Mode of arrival: Wheelchair Limitations: no limitations History of Present Illness HPI narrative: The patient is 74-year-old female coming to the ER with almost 7 to 10 days history of epigastric pain radiating to her back, she mentioned that she was taking ibuprofen for pain usually she takes 3 times a day ibuprofen 600 mg, the patient mentioned that she usually use ibuprofen for her arthritis and chronic pain As per the patient the pain is severe associated with no nausea vomiting or any fever also no change in bowel movement although the patient mentioned that she has not been eating well because of poor appetite because of the pain. The patient mentioned that the pain does not get worse with eating neither does get worse with activities. Related Data Previous Rx's ?Medication ?Instructions ?Recorded hyoscyamine sulfate 0.125 mg 0.125 mg PO Q6H PRN abdominal pain 05/20/23 sublingual tablet (Levsin/SL) #20 tabs ondansetron 4 mg disintegrating 4 mg PO Q6H PRN nausea and 05/20/23 tablet vomiting #14 tabs Allergies Allergy/AdvReac Type Severity Reaction Status Date / Time No Known Drug Allergies Allergy Verified 05/20/23 07:07 Review of Systems ROS Status of ROS 10 or more systems reviewed and unremarkable except as noted in history and below PFSH PFSH Social History Smoking status: Never smoker Little interest or pleasure in doing things: not at all Feeling down, depressed, or hopeless: not at all Exam Narrative Exam Narrative: Nurses notes and vital signs reviewed and patient is not hypoxic. General: Well-appearing and in no apparent distress. Skin: Warm, dry, no pallor noted. No rash. Head: Normocephalic, atraumatic. Neck: Supple, non-tender. Eye: Pupils are equal, round and EOMI. No scleral icterus. Cardiovascular: Regular Rate and Rhythm without murmur, gallop or rub. Respiratory: No accessory muscle use or respiratory distress. Lungs are clear to auscultation, no wheezing, rales or rhonchi Chest Wall: no tenderness Back: No midline thoracic or lumbar vertebral tenderness. No CVA tenderness Musculoskeletal: normal ROM, no calf or popliteal tenderness, no lower extremity edema/swelling GI: Abdomen is soft, non-distended. Right upper quadrant tenderness and epigastric discomfort Neurological: A&O x4. No cranial nerve dysfunction observed. Constitutional Vital Signs, click to edit/add: Last Vital Signs Temp 98 F 09/17/24 10:13 Pulse 73 09/17/24 15:00 Resp 20 09/17/24 15:00 BP 170/78 H 09/17/24 15:00 Pulse Ox 98 09/17/24 15:00 O2 Del Method Room Air 09/17/24 15:00 Course Vital Signs Vital signs: Vital Signs Temperature 98 F 09/17/24 10:13 Pulse Rate 79 09/17/24 10:13 Respiratory Rate 16 09/17/24 10:13 Blood Pressure 183/81 H 09/17/24 10:13 Pulse Oximetry 99 09/17/24 10:13 Oxygen Delivery Method Room Air 09/17/24 10:13 Temperature 98 F 09/17/24 10:13 Pulse Rate 73 09/17/24 15:00 Respiratory Rate 20 09/17/24 15:00 Blood Pressure 170/78 H 09/17/24 15:00 Pulse Oximetry 98 09/17/24 15:00 Oxygen Delivery Method Room Air 09/17/24 15:00 MDM - Abdominal Pain MDM Narrative Medical decision making narrative: The patient EKG upon arrival showing heart rate of [address] elevation or depression but the patient have chronic changes with T wave inversion in multiple leads and changes that were seen on old EKG Patient CBC shows a low white blood cell of 12 The patient had chemistry showing 1.5 bilirubin addition 112 AST and 145 alk phos The patient pain was controlled with multiple doses of morphine throughout her stay in the ER CT of the abdomen pelvis initially without contrast shows hypodensity in the liver that was confirmed with the ultrasound of the right upper quadrant The patient CAT scan with contrast showed that the patient have multiple masses that are increased in size compared to previous CAT scan The patient with her pain need to be controlled in addition to further evaluation management and diagnosis of this mass patient case initially was discussed with Dr. Paniagua he recommended that the patient be admitted as inpatient for further evaluation to [facility] but the patient requested to be transferred to [facility] Patient case was discussed with the hospice service in [facility] who accepted the patient and patient initially also had her case discussed with in the hepatology service and he can be consulted once the patient is admitted Patient awaiting bed assignment had her case discussed with who accepted the admit the patient here temporary until she is transferred to [facility] Lab Data Labs: Lab Results 09/17/24 Range/Units 10:27 WBC 12.1 H (4.0-11.0) 10^3/uL RBC 4.00 L (4.20-5.40) 10^6/uL Hgb 9.3 L (12.0-16.0) g/dL Hct 30.9 L (36.0-48.0) % MCV 77.3 L (81.0-99.0) fL MCH 23.3 L (26.7-34.0) pg MCHC 30.1 (29.9-35.2) g/dL RDW 17.3 H (11.0-15.0) % Plt Count 339 (150-450) 10^3/uL MPV 9.8 (9.5-13.5) fL Neut % (Auto) 75.6 H (43.0-75.0) % Lymph % (Auto) 13.0 L (20.5-60.0) % Crisp % (Auto) 9.6 (1.7-12.0) % Eos % (Auto) 0.8 L (0.9-7.0) % Baso % (Auto) 0.4 (0.2-2.0) % Neut # (Auto) 9.1 H (1.4-6.5) 10^3/uL Lymph # (Auto) 1.6 (1.2-3.8) 10^3/uL Crisp # (Auto) 1.2 H (0.3-0.8) 10^3/uL Eos # (Auto) 0.1 (0.0-0.7) 10^3/uL Baso # (Auto) 0.1 (0.0-0.1) 10^3/uL Abs Immat Gran (auto) 0.07 H (0.00-0.03) 10^3/uL Imm/Tot Granulo (auto) 0.6 H (0.0-0.5) % PT 11.4 (9.0-11.6) sec INR 1.08 Sodium 139 (136-145) mmol/L Potassium 3.3 L (3.5-5.1) mmol/L Chloride 104 (98-107) mmol/L Carbon Dioxide 24.8 (21.0-32.0) mmol/L Anion Gap 13.5 BUN 17.0 (7.0-18.0) mg/dL Creatinine 0.85 (0.55-1.02) mg/dL Est GFR ( Amer) >60 (>=60 mL/min/1.73m^2) Est GFR (Non-Af Amer) >60 (>=60 mL/min/1.73m^2) BUN/Creatinine Ratio 20.0 Glucose 102 (74-106) mg/dL Calcium 9.5 (8.5-10.1) mg/dL Total Bilirubin 1.5 H (0.2-1.0) mg/dL AST 112 H (15-37) U/L ALT 35 (14-59) U/L Alkaline Phosphatase 142 H (46-116) U/L Troponin I High Sens 6.8 (4.0-51.3) pg/mL Total Protein 7.6 (6.4-8.2) g/dL Albumin 3.0 L (3.4-5.0) g/dL Globulin 4.6 g/dL Albumin/Globulin Ratio 0.7 Lipase 43.0 (16.0-77.0) U/L Discharge Plan Discharge Chief Complaint: Abdominal Pain Clinical Impression: Liver masses, Abdominal pain, Elevated blood pressure reading Prescriptions / Home Meds: No Action ondansetron 4 mg tablet,disintegrating 4 mg PO Q6H PRN (Reason: nausea and vomiting) Qty: 14 0RF hyoscyamine sulfate [Levsin/SL] 0.125 mg tablet, sublingual 0.125 mg PO Q6H PRN (Reason: abdominal pain) Qty: 20 0RF Print Language: Japanese Referrals: [facility] [Primary Care Provider, Family Practice] - 1 week
[2024-09-17 10:55] LABS: INR 1.08; Prothrombin Time 11.4 sec (9.0-11.6)
--- NOTE | 2024-09-17 11:05 | US_ITS ---
The [address] [address] Patient Name: HALIE MATT MRN: [id number] date: 1950 Sex: F Assigned Patient Location: ER Current Patient Location: ER Accession/Order Number: [id number] Exam Date: 09/17/2024 12:09 Report Date: 09/17/2024 12:18 At the request of: BENNIE HENDERSON MD Procedure: US right upper quadrant LIMITED RIGHT UPPER QUADRANT ABDOMINAL ULTRASOUND CLINICAL HISTORY: Right upper quadrant and upper back pain for the past couple weeks. COMPARISON: CT 09/17/2024 The gallbladder is physiologically distended without shadowing calculi, wall thickening or pericholecystic fluid. No intra- or extrahepatic biliary dilatation is evident. The common duct measures 2 mm. Large, heterogeneously hyperechoic masslike areas are seen within the left and right hepatic lobes. There are 2 dominant lesions anteriorly measuring 5.6 x 6.9 x 7.5 cm and 5.8 x 5.7 x 5.9 cm. The third area seen at the posterior liver on today's CT was not measured though is identified on some of the images. There is appropriate hepatopetal flow within the main portal vein. The pancreas is slightly heterogeneous, greatest at the tail. The pancreatic duct is borderline prominent measuring 3 mm . Cursory evaluation of the right kidney reveals no hydronephrosis or fluid within Nair's pouch. There are a couple tiny 2 - 3 mm stones at the lower right kidney. US/US right upper quadrant IMPRESSION: INDETERMINANT HEPATIC LESIONS. NEOPLASM IS NOT EXCLUDED. CLINICAL CORRELATION AND FOLLOW-UP WILL BE NEEDED. NO GALLBLADDER PATHOLOGY. BORDERLINE PROMINENT PANCREATIC DUCT AND SLIGHT PANCREATIC HETEROGENEITY. NONOBSTRUCTING RIGHT RENAL STONES. Impression dictated by: Halie Scott M.D. 09/17/2024 12:18 PM Dictation Location: [place] [address] Electronically authenticated by: [id number] Y Date: 09/17/2024 12:18
--- NOTE | 2024-09-17 11:05 | CT_ITS ---
The [address] [address] Patient Name: HALIE MATT MRN: [id number] date: 1950 Sex: F Assigned Patient Location: ER Current Patient Location: ER Accession/Order Number: [id number] Exam Date: 09/17/2024 11:43 Report Date: 09/17/2024 11:59 At the request of: BENNIE HENDERSON MD Procedure: CT abdomen pelvis wo con CT ABDOMEN AND PELVIS WITHOUT CONTRAST CLINICAL DATA: Epigastric pain intermittently for the past couple weeks though worsening over the past few days. COMPARISON: 324 Spiral images were obtained through the abdomen and pelvis without contrast. This CT exam was performed using one or more following dose reduction techniques: Automated exposure control, adjustment of the mA and/or kV according to patient size, or use of iterative reconstruction technique. Limited cuts through the lung bases show mild atelectasis and/or scarring. Assessment of the intra-abdominal organs is slightly limited by the absence of contrast. No calcified gallstones are present. There is redemonstration of heterogeneous hypodense areas involving the left and anterior right hepatic lobes. These have increased in size and are less defined than on the prior that was also performed without contrast. There is also a developing hypodense nodular area at the posterior right hepatic lobe measuring approximately 3.3 cm in size. The spleen, pancreas and adrenal glands show no definite acute findings. There are a couple stones at the lower pole of the right kidney measuring up to 3 mm. There is also potential punctate stone at the mid to lower pole on the left. No hydronephrosis is identified. No ureteral dilatation or stones are seen. There is mild atherosclerotic plaque at the aorta, iliac and proximal renal arteries. There are some gastrohepatic ligament lymph nodes. There are no other obvious enlarged lymph nodes within limits of no contrast. No ascites is seen. The stomach is decompressed. No dilated small bowel loops are seen. There is stool within the colon, greater on the right. There are some left-sided colonic diverticula. Subtle dextroscoliotic curvature and discovertebral degenerative changes are seen at the spine, greatest at the lumbosacral junction. Images through the pelvis show no dilated small bowel. The appendix is not discretely seen. There is mild stool at the distal colon. There are additional descending and sigmoid diverticula, without associated active inflammation. The uterus is levoverted. It contains calcification which could indicate fibroid disease. No adnexal cysts are identified. The urinary bladder is not well-distended however no obvious CT abnormalities are seen. There is no ascites. CT/CT abdomen pelvis wo con IMPRESSION: WORSENING, INDETERMINATE HEPATIC LESIONS. CORRELATION WITH CLINICAL HISTORY WELL WORKUP FOLLOWING THE PREVIOUS STUDY IS RECOMMENDED. MALIGNANCY IS NOT EXCLUDED. BILATERAL NEPHROLITHIASIS, WITHOUT OBSTRUCTION. DIVERTICULOSIS. POSSIBLE UTERINE FIBROID DISEASE. Impression dictated by: Halie Scott M.D. 09/17/2024 11:59 AM Dictation Location: [place] [address] Electronically authenticated by: [id number] Y Date: 09/17/2024 11:59
--- NOTE | 2024-09-17 12:05 | CT_ITS ---
[address] [address] Patient Name: ANA MATT MRN: [id number] date: 1950 Sex: F Assigned Patient Location: ER Current Patient Location: ER Accession/Order Number: [id number] Exam Date: 09/17/2024 12:51 Report Date: 09/17/2024 13:09 At the request of: BENNIE HENDERSON MD Procedure: CT abdomen pelvis w con CT abdomen pelvis w con 09/17/2024 12:24 PM SIGNS AND SYMPTOMS: Abdominal pain radiating into back, liver mass TECHNIQUE: Multidetector ct axial images of the abdomen and pelvis were obtained with IV contrast. Multiplanar reformats were performed and reviewed to further define anatomy and possible pathology. CT was performed with one or more of the following dose reduction techniques: Automated exposure control, adjustment of the mA and/or kV according to patient size, or use of iterative reconstruction technique. COMPARISON: 09/17/2024 and 05/20/2023 FINDINGS: Lower Chest: There is dependent scarring or atelectasis in the lung bases. ABDOMEN: Liver: Heterogeneously enhancing masses are noted in the right and left hepatic lobes measuring up to 11.6 cm in greatest dimension. Bile Ducts: Normal caliber. Gallbladder: No calcified gallstones. Normal caliber wall. Pancreas: Within normal limits. Spleen: Within normal limits. Adrenals: Within normal limits. Kidneys: There are a few tiny nonobstructing stones in the inferior pole of the right renal collecting system. Pelvis: Reproductive Organs: No pelvic masses. Ureters: Within normal limits. Bladder: Within normal limits. Bowel: Uncomplicated colonic diverticula are noted. There is a normal appendix in the right lower quadrant. Is no evidence of bowel obstruction. Mesenteric Lymph Nodes: No enlarged mesenteric lymph nodes. Peritoneum: No ascites or free air, no fluid collection. Vessels: Atherosclerotic changes are noted in the abdominal aorta. Retroperitoneum: Within normal limits. Abdominal Wall: Within normal limits. Bones: Degenerative changes are noted in the thoracolumbar spine. CT/CT abdomen pelvis w con IMPRESSION: Heterogeneously enhancing masses are noted in the right and left hepatic lobes measuring up to 11.6 cm in greatest dimension. This is suspicious for malignancy. No mass or abnormal enhancement is noted otherwise. No bowel obstruction or obstructive uropathy. Additional chronic findings are redemonstrated as above. Impression dictated by: Aashish Hallman M.D. 09/17/2024 1:09 PM Dictation Location: [place] [address] Electronically authenticated by: [id number] Y Date: 09/17/2024 13:09
[2024-09-17] MEDS: MORPHINE SULFATE 4 MG/ML VIAL 3 MG IV (13:53)
[2024-09-17] MEDS: HYDROMORPHONE HCL 0.5 MG/0.5 ML SYRINGE IV (17:47)
[2024-09-17] MEDS: POTASSIUM CHLORIDE 10 MEQ ER TABLET 20 MEQ PO (17:47)
[2024-09-17] MEDS: AMLODIPINE BESYLATE 5 MG TABLET PO (20:18)
[2024-09-17] MEDS: OXYCODONE HCL 5 MG TABLET PO (21:50)
[2024-09-17] MEDS: ENOXAPARIN SODIUM 40 MG/0.4 ML SYRINGE SUBQ (21:51)
[2024-09-18] VITALS (9 sets, daily range): BP systolic 123–164; BP diastolic 66–74; PULSE 72–90; TEMP 36.6–37.2; O2SAT 95–97
[2024-09-18] MEDS: HYDROMORPHONE HCL 0.5 MG/0.5 ML SYRINGE IV (04:24)
[2024-09-18] MEDS: ACETAMINOPHEN 500 MG TABLET PO ×2 (04:24→16:00)
[2024-09-18 05:48] LABS: Hematocrit 27.5 % (36.0-48.0); Hemoglobin 8.4 g/dL (12.0-16.0); Mean Corpuscular HGB Conc 30.5 g/dL (29.9-35.2); Mean Corpuscular Hemoglobin 23.3 pg (26.7-34.0); Mean Corpuscular Volume 76.2 fL (81.0-99.0); Platelet Count 282 10^3/uL (150-450); Red Blood Count 3.61 10^6/uL (4.20-5.40); White Blood Count 9.6 10^3/uL (4.0-11.0)
[2024-09-18 06:15] LABS: Alanine Aminotransferase 25 U/L (14-59); Albumin Globulin Ratio 0.6; Albumin Level 2.4 g/dL (3.4-5.0); Alkaline Phosphatase 119 U/L (46-116); Anion Gap 15.5; Aspartate Amino Transferase 64 U/L (15-37); Blood Urea Nitrogen 11.0 mg/dL (7.0-18.0); Calcium 9.0 mg/dL (8.5-10.1); Carbon Dioxide 22.4 mmol/L (21.0-32.0); Chloride 104 mmol/L (98-107); Estimated GFR (African America >60 (>=60 mL/min/1.73m^2); Estimated GFR (Non-African Ame >60 (>=60 mL/min/1.73m^2); Globulin 4.3 g/dL; Glucose 93 mg/dL (74-106); Potassium 3.9 mmol/L (3.5-5.1); Sodium 138 mmol/L (136-145); Total Protein 6.7 g/dL (6.4-8.2)
[2024-09-18 08:08] LABS: AFP, Serum, Tumor Marker <1.8 ng/mL (0.0-9.2); CA 19-9 84 U/mL (0-35); CEA 188.0 ng/mL (0.0-4.7)
--- NOTE | 2024-09-18 08:16 | SWNOTE1 ---
SW consulted for Advanced Directives.
[2024-09-18] MEDS: AMLODIPINE BESYLATE 5 MG TABLET PO (08:58)
--- NOTE | 2024-09-18 09:01 | PM.HP ---
HPI H&P: HPI History of Present Illness Chief complaint: ABDOMINAL PAIN, LIVER MASS Narrative: Mrs. Martin is a 74-year-old female who came to the emergency room complaining of abdominal pain. The pain is in the right upper quadrant. Patient reported that she has had this pain for several months on and off. No relation to food or exercise. Patient denies any fever or chills. Patient admitted losing about 20 pounds over the last 6 months. No hematemesis or melena. No previous colonoscopy or EGD. She has had mammogram before but not recently. She was found to have liver lesions. In the emergency room, the patient requested transfer to [facility]. She was offered to go to [facility] however patient reported having previous unpleasant experience and insisted on going to [facility]. Patient was accepted to go to [facility] pending bed availability. Opioid HPI Opioid Management Most Recent Pain and Opioid Data: Last Pain Scale 0 Today, 08:55 Last Pain Assessment 09/17/24, 19:00 Last ORT Total Score 0 09/17/24, 17:32 Last ORT Risk Category Low Risk 09/17/24, 17:32 Review of Systems ROS Narrative 12 system review otherwise negative for acute signs or symptoms. PFSH PFS Social History Smoking status: Never smoker Highest level of school completed/degree received: high school graduate Little interest or pleasure in doing things: not at all Feeling down, depressed, or hopeless: not at all Meds Home Medications and Allergies Home Medications ?Medication ?Instructions ?Recorded ?Confirmed ?Type ibuprofen 600 mg tablet 600 mg PO Q6H PRN pain 09/17/24 09/17/24 History ipratropium bromide 42 mcg (0.06 2 spray intranasal BID 09/17/24 09/17/24 History %) nasal spray Allergies Allergy/AdvReac Type Severity Reaction Status Date / Time No Known Drug Allergies Allergy Verified 05/20/23 07:07 Exam Narrative Exam Narrative: [pt is awake and alert. oriented to place, time and person, cachectic and frail in appearance. Bitemporal muscle wasting HEENT: [place] conjunctiva and NL buccal mucosa Neck: Supple, no tenderness Endocrine: No Thyromegaly. Vascular: No JVD or carotid bruit. Lymphatic: No cervical lymphadenopathy. Chest: CTA no DTP. Heart RRR, no extra sound or murmur. Abd: Soft, tenderness in the right upper quadrant. Some guarding. No rebound, no rigidity. LE: No cyanosis or clubbing. No varices or edema upper and lower extremities muscle wasting. Neuro: A A O. Nl speech, comprehension and attention. Nl and symetrical motor and tone examination through out. []] Constitutional Vital Signs, click to edit/add: Last Vital Signs Temp 98.6 F 09/18/24 07:55 Pulse 72 09/18/24 07:55 Resp 16 09/18/24 07:55 BP 159/72 H 09/18/24 07:55 Pulse Ox 97 09/18/24 07:55 O2 Del Method Room Air 09/18/24 07:55 Results Labs Labs: Short CBC 09/17/24 09/18/24 Range/Units 10:27 05:17 WBC 12.1 H 9.6 (4.0-11.0) 10^3/uL Hgb 9.3 L 8.4 L (12.0-16.0) g/dL Hct 30.9 L 27.5 L (36.0-48.0) % Plt Count 339 282 (150-450) 10^3/uL BMP 09/17/24 09/18/24 10:27 05:17 Sodium 139 138 Potassium 3.3 L 3.9 Chloride 104 104 Carbon Dioxide 24.8 22.4 BUN 17.0 11.0 Creatinine 0.85 0.58 Glucose 102 93 Calcium 9.5 9.0 Liver Function 09/17/24 09/18/24 Range/Units 10:27 05:17 Total Bilirubin 1.5 H 1.3 H (0.2-1.0) mg/dL AST 112 H 64 H (15-37) U/L ALT 35 25 (14-59) U/L Alkaline Phosphatase 142 H 119 H (46-116) U/L Albumin 3.0 L 2.4 L (3.4-5.0) g/dL Assessment and Plan Assessment and Plan (1) Elevated blood pressure reading: (2) Abdominal pain: (3) Liver masses: (4) Weight loss: (5) Cachexia: (6) Hypertension: Plan Abdominal pain, multiple liver lesions Suspicious for malignancy Patient requested transfer to [facility]. She had been accepted pending bed availability. Requested the CEA and CA 19 which came back elevated. Unknown to primary. Patient would likely require biopsy and additional investigation which may include but not limited to EGD, colonoscopy, pelvic exam and other risk Elevated bilirubin, likely secondary to above. Weight loss, muscle wasting, cachexia, likely secondary to above. High blood pressure. I suspect the patient has undiagnosed hypertension. This could be exaggerated by pain, severe anxiety. I started patient on amlodipine 5 mg. Titrate accordingly Anemia, no evidence of acute blood loss. Could be related to underlying malignancy. No clinical evidence of outward blood loss. Requested to check iron, TIBC, ferritin and folate. DVT prophylaxis Patient is at risk having DVT secondary to suspicion of underlying malignancy Lovenox subcu Chronic medical conditions not listed above, incidental findings seen on labs and imaging. These would need to be addressed. Could be addressed when time and condition are appropriate. Could be addressed in the outpatient setting by PCP collaboration with other needed outpatient providers.
--- NOTE | 2024-09-18 09:22 | SWNOTE1 ---
Medicare Outpatient Observation Notice reviewed and discussed with patient. Pt. verbalized understanding and signed the form. Original given to patient and copy placed in patient?s chart.
--- NOTE | 2024-09-18 09:23 | SWNOTE1 ---
SW stopped in to speak with pt in regards to Advanced Directives. Pt voiced that she did complete Advanced Directives, but she does not think she has brought them here to be scanned in to system. SW did recommend bringing them in if she has an opportunity to do so. Pt voiced she has her daughters as her HCPOA.
[2024-09-18] MEDS: OXYCODONE HCL 5 MG TABLET PO ×2 (10:28→16:00)
[2024-09-18 10:37] LABS: Iron 9.0 ug/dL (50.0-170.0); Percent Iron Saturation 3.2 %; Total Iron Binding Capacity 280.0 ug/dL (250.0-450.0)
[2024-09-18 10:58] LABS: Ferritin 107.0 ng/mL (8.0-252.0); Folate 12.30 ng/mL (8.60-58.90)
[2024-09-18] MEDS: ENOXAPARIN SODIUM 40 MG/0.4 ML SYRINGE SUBQ (21:13)
[2024-09-19] VITALS (7 sets, daily range): BP systolic 113–150; BP diastolic 61–76; PULSE 74–110; TEMP 36.8–37.3; O2SAT 93–98; BMI 22.0
[2024-09-19] MEDS: ACETAMINOPHEN 500 MG TABLET PO (02:51)
[2024-09-19 05:47] LABS: Hematocrit 27.8 % (36.0-48.0); Hemoglobin 8.8 g/dL (12.0-16.0); Mean Corpuscular HGB Conc 31.7 g/dL (29.9-35.2); Mean Corpuscular Hemoglobin 23.5 pg (26.7-34.0); Mean Corpuscular Volume 74.3 fL (81.0-99.0); Platelet Count 384 10^3/uL (150-450); Red Blood Count 3.74 10^6/uL (4.20-5.40); White Blood Count 12.0 10^3/uL (4.0-11.0)
[2024-09-19 06:13] LABS: Alanine Aminotransferase 30 U/L (14-59); Albumin Globulin Ratio 0.6; Albumin Level 2.5 g/dL (3.4-5.0); Alkaline Phosphatase 134 U/L (46-116); Anion Gap 16.8; Aspartate Amino Transferase 105 U/L (15-37); Blood Urea Nitrogen 10.0 mg/dL (7.0-18.0); Calcium 9.4 mg/dL (8.5-10.1); Carbon Dioxide 22.7 mmol/L (21.0-32.0); Chloride 104 mmol/L (98-107); Estimated GFR (African America >60 (>=60 mL/min/1.73m^2); Estimated GFR (Non-African Ame >60 (>=60 mL/min/1.73m^2); Globulin 4.5 g/dL; Glucose 117 mg/dL (74-106); Potassium 3.5 mmol/L (3.5-5.1); Sodium 140 mmol/L (136-145); Total Protein 7.0 g/dL (6.4-8.2)
--- NOTE | 2024-09-19 08:58 | P.DS_ITS ---
DS: Providers Provider Date of admission: 09/17/24 17:21 Primary care physician: INDU AMARAL Consults: 09/17/24 Consult to English As A Second Language Teacher Routine Reason for consult:: Advanced Directives DS: Diagnosis Discharge Diagnosis (1) Abdominal pain: (2) Liver masses: (3) Weight loss: (4) Cachexia: (5) Hypertension: (6) Moderate protein-calorie malnutrition: (7) Anemia: Plan As listed above and others that are not listed DS: Summary Hospital Course Hospital Course: Mrs. Martin is a 74-year-old female who came in with abdominal pain and found to have the following: Abdominal pain, multiple liver lesions Suspicious for malignancy Patient requested transfer to [facility]. She had been accepted pending bed availability. Requested the CEA and CA 19 which came back elevated. Unknown to primary. Patient would likely require biopsy and additional investigation which may include but not limited to EGD, colonoscopy, pelvic exam and other risk Patient abdominal pain had worsened patient is requiring frequent administration of pain medication justifying inpatient stay. Changed to inpatient pending bed availability at [facility]. Elevated bilirubin, likely secondary to above. Gallbladder on CT and ultrasound showed no evidence of stones or wall thickening Lipase is normal. Moderate protein calorie malnutrition Weight loss, muscle wasting, cachexia, likely secondary to above. Start patient on oral protein supplementation Hypertension Fair control on amlodipine. Continue to monitor and adjust accordingly Anemia, no evidence of acute blood loss. Could be related to underlying malignancy. No clinical evidence of outward blood loss. Requested to check iron, TIBC, ferritin and folate. This came back consistent with mixed etiology, likely caused by iron deficiency due to severe low iron saturation as well as anemia of chronic disease secondary to suspected malignancy. I started the patient on iron supplementation intravenously followed by oral DVT prophylaxis Patient is at risk having DVT secondary to suspicion of underlying malignancy Lovenox subcu Chronic medical conditions not listed above, incidental findings seen on labs and imaging. These would need to be addressed. Could be addressed when time and condition are appropriate. Could be addressed in the outpatient setting by PCP collaboration with other needed outpatient providers. I am hoping that bed will open up at [facility] and the patient would be transferred today. She is willing to go to the main [facility] or [place] or [place] location. We will connect with the [facility] for transfer center and request to broaden our options Time Spent with Patient Time attestation: Total time spent providing and/or coordinating discharge services: Time spent: greater than 30 minutes Exam Narrative Exam Narrative: Patient is sitting in bed. She is in distress. Abdominal tenderness in the epigastric and right upper quadrant. Cachectic and frail. Bitemporal muscle wasting. Upper and lower extremities muscle wasting and atrophy. Loss of subcutaneous fat. Constitutional Vital Signs, click to edit/add: Last Vital Signs Temp 98.2 F 09/19/24 07:56 Pulse 74 09/19/24 08:00 Resp 18 09/19/24 07:56 BP 138/71 09/19/24 07:56 Pulse Ox 98 09/19/24 07:56 O2 Del Method Room Air 09/19/24 04:00 DS: Data Data Completed and Pending Labs on day of discharge: Labs from last 24 hours 09/19/24 09/18/24 05:19 09:30 WBC 12.0 H RBC 3.74 L Hgb 8.8 L Hct 27.8 L MCV 74.3 L MCH 23.5 L MCHC 31.7 RDW 16.7 H Plt Count 384 MPV 10.6 Sodium 140 Potassium 3.5 Chloride 104 Carbon Dioxide 22.7 Anion Gap 16.8 BUN 10.0 Creatinine 0.61 Est GFR ( Amer) >60 Est GFR (Non-Af Amer) >60 BUN/Creatinine Ratio 16.4 Glucose 117 H Calcium 9.4 Iron 9.0 L TIBC 280.0 % Saturation 3.2 Ferritin 107.0 Total Bilirubin 1.2 H AST 105 H ALT 30 Alkaline Phosphatase 134 H Total Protein 7.0 Albumin 2.5 L Globulin 4.5 Albumin/Globulin Ratio 0.6 Folate 12.30 Discharge Plan Discharge Disposition: [facility] Condition: Good Discharge location: [place] [id number]
[2024-09-19 09:08] LABS: Lipase 26.0 U/L (16.0-77.0)
[2024-09-19] MEDS: ENSURE HP 237 ML LIQUID PO ×2 (09:22→21:17)
[2024-09-19] MEDS: FERROUS SULFATE 325 MG TABLET PO ×2 (09:22→21:17)
[2024-09-19] MEDS: IRON SUCROSE COMPLEX 200 MG in 0.9 % SODIUM CHLORIDE 100 ML 220 MG IV (09:22)
[2024-09-19] MEDS: PANTOPRAZOLE SODIUM 40 MG VIAL IV (09:22)
[2024-09-19] MEDS: POTASSIUM CHLORIDE 10 MEQ ER TABLET 40 MEQ PO (09:22)
[2024-09-19] MEDS: OXYCODONE HCL 5 MG TABLET 10 MG PO ×2 (09:22→15:32)
[2024-09-19] MEDS: PREGABALIN 50 MG CAPSULE PO ×2 (09:23→21:17)
[2024-09-19] MEDS: AMLODIPINE BESYLATE 5 MG TABLET PO (09:23)
--- NOTE | 2024-09-19 10:04 | SWNOTE1 ---
Important Message from Medicare reviewed and discussed with patient. Pt. verbalized understanding and signed the form. Original given to patient and copy placed in patient?s chart.
[2024-09-19] MEDS: ENOXAPARIN SODIUM 40 MG/0.4 ML SYRINGE SUBQ (21:17)
[2024-09-20 04:00] VITALS: BP 147/80; PULSE 116; TEMP 37; O2SAT 93
[2024-09-20] MEDS: ACETAMINOPHEN 500 MG TABLET PO ×2 (05:36→11:28)
[2024-09-20] MEDS: PANTOPRAZOLE SODIUM 40 MG TABLET.DR PO (05:37)
[2024-09-20 08:12] VITALS: BP 132/75; PULSE 82; TEMP 36.8; O2SAT 96
[2024-09-20] MEDS: ENSURE HP 237 ML LIQUID PO ×2 (09:07→20:55)
[2024-09-20] MEDS: FERROUS SULFATE 325 MG TABLET PO ×2 (09:07→20:54)
[2024-09-20] MEDS: PREGABALIN 50 MG CAPSULE PO (09:07)
[2024-09-20] MEDS: AMLODIPINE BESYLATE 5 MG TABLET PO (09:07)
--- NOTE | 2024-09-20 09:55 | P.PN_ITS ---
Exam Narrative Exam Narrative: Pain is under better control today. No other acute signs or symptoms Minimal tenderness in the right upper quadrant. Chest is clear, heart regular. Abdomen soft Constitutional Vital Signs, click to edit/add: Last Vital Signs Temp 98.2 F 09/20/24 08:12 Pulse 82 09/20/24 08:12 Resp 16 09/20/24 08:12 BP 132/75 09/20/24 08:12 Pulse Ox 96 09/20/24 08:12 O2 Del Method Room Air 09/20/24 08:12 Progress Note: A&P Assessment and Plan (1) Abdominal pain: (2) Liver masses: (3) Weight loss: (4) Cachexia: (5) Hypertension: (6) Moderate protein-calorie malnutrition: (7) Anemia: Plan Abdominal pain, multiple liver lesions Suspicious for malignancy Patient requested transfer to [facility]. She had been accepted pending bed availability. Requested the CEA and CA 19 which came back elevated. Unknown to primary. Patient would likely require biopsy and additional investigation which may include but not limited to EGD, colonoscopy, pelvic exam and other risk Patient abdominal pain had worsened patient is requiring frequent administration of pain medication justifying inpatient stay. Changed to inpatient pending bed availability at [facility]. Elevated bilirubin, likely secondary to above. Gallbladder on CT and ultrasound showed no evidence of stones or wall thickening Lipase is normal. Moderate protein calorie malnutrition Weight loss, muscle wasting, cachexia, likely secondary to above. Cont oral protein supplementation Hypertension Fair control on amlodipine. Continue to monitor and adjust accordingly Anemia, no evidence of acute blood loss. Could be related to underlying malignancy. No clinical evidence of outward blood loss. Requested to check iron, TIBC, ferritin and folate. This came back consistent with mixed etiology, likely caused by iron deficiency due to severe low iron saturation as well as anemia of chronic disease secondary to suspected malignancy. Cont iron supplementation intravenously followed by oral DVT prophylaxis Patient is at risk having DVT secondary to suspicion of underlying malignancy Lovenox subcu Chronic medical conditions not listed above, incidental findings seen on labs and imaging. These would need to be addressed. Could be addressed when time and condition are appropriate. Could be addressed in the outpatient setting by PCP collaboration with other needed outpatient providers. I am hoping that bed will open up at [facility] and the patient would be transferred today. She is willing to go to the main [facility] or [place] or [facility]. We will connect with the [facility] for transfer center and request to broaden our options I discussed her case with her 2 daughters at the bedside.
[2024-09-20] MEDS: CELECOXIB 100 MG CAPSULE PO ×2 (11:29→20:54)
[2024-09-20 11:30] VITALS: BP 125/71; PULSE 100; TEMP 37.1; O2SAT 97
[2024-09-20 15:14] VITALS: BP 119/68; PULSE 80; TEMP 36.8; O2SAT 97
[2024-09-20] MEDS: OXYCODONE HCL 5 MG TABLET 10 MG PO ×2 (19:04→20:54)
[2024-09-20 19:37] VITALS: BP 134/71; PULSE 112; TEMP 37; O2SAT 94
[2024-09-20] MEDS: SENNOSIDES/DOCUSATE SODIUM 1 TAB TABLET PO (20:54)
[2024-09-20] MEDS: PREGABALIN 75 MG CAPSULE PO (20:54)
[2024-09-20] MEDS: MAGNESIUM HYDROXIDE 2,400 MG/10 ML ORAL.SUSP 2400 MG PO (20:54)
[2024-09-20] MEDS: ENOXAPARIN SODIUM 40 MG/0.4 ML SYRINGE SUBQ (21:00)
[2024-09-20 23:11] VITALS: BP 129/72; PULSE 103; TEMP 37.2; O2SAT 94
[2024-09-21] MEDS: PANTOPRAZOLE SODIUM 40 MG TABLET.DR PO (05:37)
[2024-09-21] MEDS: ACETAMINOPHEN 500 MG TABLET PO (05:37)
[2024-09-21 05:39] VITALS: BP 119/73; PULSE 103; TEMP 36.9; O2SAT 93
[2024-09-21] MEDS: CELECOXIB 100 MG CAPSULE PO (08:30)
[2024-09-21] MEDS: PREGABALIN 75 MG CAPSULE PO (08:30)
[2024-09-21] MEDS: FERROUS SULFATE 325 MG TABLET PO (08:30)
[2024-09-21] MEDS: ENSURE HP 237 ML LIQUID PO (08:31)
[2024-09-21] MEDS: SENNOSIDES/DOCUSATE SODIUM 1 TAB TABLET PO (08:31)
[2024-09-21] MEDS: AMLODIPINE BESYLATE 5 MG TABLET PO (08:31)
[2024-09-21 08:34] VITALS: BP 125/77; PULSE 94; TEMP 36.6; O2SAT 96
--- NOTE | 2024-09-21 09:34 | PC.NURSE ---
Called [facility] transfer line. Per Lenore with [facility] there are no beds available at this time and they are pending discharges. Unsure if a bed will be available today. Primary RN Constanza HUA updated.
--- NOTE | 2024-09-21 09:51 | PM.DS1 ---
DS: Providers Provider Date of admission: 09/19/24 09:18 Primary care physician: INDU AMARAL Consults: 09/17/24 Consult to Clerical Clerk Routine Reason for consult:: Advanced Directives DS: Diagnosis Discharge Diagnosis (1) Abdominal pain: (2) Liver masses: (3) Weight loss: (4) Cachexia: (5) Hypertension: (6) Moderate protein-calorie malnutrition: (7) Anemia: Plan As listed above and others that are not listed DS: Summary Hospital Course Hospital Course: Mrs. Martin is a 74-year-old female who came in with abdominal pain and found to have the following: Abdominal pain, multiple liver lesions Suspicious for malignancy Patient requested transfer to [facility]. She had been accepted pending bed availability. Requested the CEA and CA 19 which came back elevated. Unknown to primary. Patient would likely require biopsy and additional investigation which may include but not limited to EGD, colonoscopy, pelvic exam and other risk Patient abdominal pain had worsened patient is requiring frequent administration of pain medication justifying inpatient stay. Changed to inpatient pending bed availability at [facility]. Stated there is no bed available at [facility]. Patient and her family are getting frustrated with the delay in getting a bed available at [facility]. Patient adamantly refused to go to [facility] to seek oncology care by [facility] or [facility] team. Patient believes in [facility] system in [place] and wants to be admitted there Patient and family do not want to wait any longer. They want her to be discharged. Patient [facility] process [facility]. This is obviously not my first option but patient and her family have a right to proceed as they wish. Elevated bilirubin, likely secondary to above. Gallbladder on CT and ultrasound showed no evidence of stones or wall thickening Lipase is normal. Moderate protein calorie malnutrition Weight loss, muscle wasting, cachexia, likely secondary to above. Start patient on oral protein supplementation Hypertension Fair control on amlodipine. Continue to monitor and adjust accordingly Old left bundle branch block. No chest pain. No active cardiac symptoms. This may need to be investigated further. She may need to have echocardiogram. She may need to have ischemic evaluation to be done electively by [facility]. Anemia, no evidence of acute blood loss. Could be related to underlying malignancy. No clinical evidence of outward blood loss. Requested to check iron, TIBC, ferritin and folate. This came back consistent with mixed etiology, likely caused by iron deficiency due to severe low iron saturation as well as anemia of chronic disease secondary to suspected malignancy. I started the patient on iron supplementation intravenously followed by oral DVT prophylaxis Patient is at risk having DVT secondary to suspicion of underlying malignancy Lovenox subcu Chronic medical conditions not listed above, incidental findings seen on labs and imaging. These would need to be addressed. Could be addressed when time and condition are appropriate. Could be addressed in the outpatient setting by PCP collaboration with other needed outpatient providers. Once again, patient was admitted with abdominal pain secondary to liver masses. [facility] to [facility] however no bed available. Frustration is building up. Patient and family do not want to wait any longer. They are requesting discharge. Patient and family are considering driving to [facility] facility to speed up the process of admission into [facility]. Patient and family have arrived to proceed as they wish to proceed Time Spent with Patient Time attestation: Total time spent providing and/or coordinating discharge services: Exam Narrative Exam Narrative: [pt is awake and alert. oriented to place, time and person HEENT: [place] conjunctiva and NL buccal mucosa Neck: Supple, no tenderness Endocrine: No Thyromegaly. Vascular: No JVD or carotid bruit. Lymphatic: No cervical lymphadenopathy. Chest: CTA no DTP. Heart RRR, no extra sound or murmur. Abd: Soft, tenderness in the right upper quadrant. LE: No cyanosis or clubbing, no varices or edema. Neuro: A A O. Nl speech, comprehension and attention. Nl and symetrical motor and tone examination through out. []] Constitutional Vital Signs, click to edit/add: Last Vital Signs Temp 97.9 F 09/21/24 08:34 Pulse 94 H 09/21/24 08:34 Resp 6 L 09/21/24 08:34 BP 125/77 09/21/24 08:34 Pulse Ox 96 09/21/24 08:34 O2 Del Method Room Air 09/21/24 08:34 Discharge Plan Discharge Disposition: Home, Self-Care Condition: Good Discharge Medications: New amlodipine 5 mg Tablet 5 mg PO QD Qty: 30 1RF acetaminophen 500 mg Tablet 500 mg PO Q6H PRN (Reason: Pain or fever) Qty: 50 1RF ferrous sulfate 325 mg (65 mg iron) Tablet 325 mg PO BID Qty: 120 1RF celecoxib 100 mg Capsule 100 mg PO BID PRN (Reason: pain) Qty: 30 0RF oxycodone 5 mg Tablet 5 mg PO Q4H PRN (Reason: Pain) Qty: 30 0RF sennosides-docusate sodium [Senna Plus] 8.6-50 mg Tablet 1 tab PO BID Qty: 60 0RF pantoprazole 40 mg Tablet,Delayed Release (Dr/Ec) 40 mg PO ACB Qty: 30 1RF pregabalin 75 mg Capsule 75 mg PO BID Qty: 60 0RF Continued ipratropium bromide 42 mcg (0.06 %) spray,non-aerosol 2 spray INTRANASAL BID Discontinued ibuprofen 600 mg tablet 600 mg PO Q6H PRN (Reason: pain) Print Language: Azeri Forms: Portal Instructions Discharge location: [facility] [address]
[2024-09-21] MEDS: OXYCODONE HCL 5 MG TABLET 10 MG PO (11:18)
--- NOTE | 2024-09-24 15:08 | CM.DCFOLLOWU ---
1st attempt 09/24/24, no answer
--- NOTE | 2024-09-25 14:54 | CM.DCFOLLOWU ---
2nd attempt 09/25/24, no answer
--- NOTE | 2024-09-26 13:56 | CM.DCFOLLOWU ---
3rd attempt 09/26/24, no answer
== END 2024-09-21 12:08 | disposition home or self-care (01) | DRG 436 ==
LOC: ER 16:33 → MS 17:32
PROVIDERS: Admitting Provider Internal Medicine; Emergency Provider Emergency Medicine; PCP Family Medicine; Visit Provider Internal Medicine
DX: C78.7 Secondary malignant neoplasm of liver and intrahepatic bile duct (principal); E44.0 Moderate protein-calorie malnutrition; R64 Cachexia; E80.6 Other disorders of bilirubin metabolism; I10 Essential (primary) hypertension; M62.50 Muscle wasting and atrophy, not elsewhere classified, unspecified site; D50.9 Iron deficiency anemia, unspecified; D63.0 Anemia in neoplastic disease; R10.11 Right upper quadrant pain; Z68.22 Body mass index [BMI] 22.0-22.9, adult
CPT/HCPCS: 36415; 71045; 74176; 74177; 76705; 80053; 82105; 82378; 82728; 82746; 83540; 83550; 83690; 84484; 85025; 85027; 85610; 86301; 93005; 96372; 96374; 96375; 96376; 99285; G0378; J1171; J1650; J1756; J2270; J3490; Q9967